=== PATIENT | male | born 1940 | race Hispanic/Latino ===

== ENCOUNTER 2016-11-15 09:24 | Inpatient (IN) | payer MEDICARE, MEDICAID ==
[2016-11-15] MEDS ORDERED: Morphine 4 mg/ml ISec IVP STA (10:37)
--- NOTE | 2016-11-15 10:52 | ED PDOC ---
Arrival/HPI - General Chief Complaint: Back Pain Time Seen by Provider: 11/15/16 09:37 Historian: Patient - History of Present Illness Narrative History of Present Illness (Text): 11/15/16 10:34 A 76 year old male, whose past medical history includes arthritis, is brought into the emergency department by EMS complaining of lower back pain for 2-3 days. Patient reports the pain is worse with movement and when ambulating. He has not taken any medication for the pain. Patient notes a subjective fever 2 days ago but denies any trauma, injury, lower extremity weakness or numbness, nausea, vomiting, diarrhea, abdominal pain, urinary symptoms, chest pain, shortness of breath or any other complaints. PMD: Dr. Juwan Vaughn Time/Duration: Other (2-3 days) Symptom Course: Worsening Quality: Other Context: Home Past Medical History - Provider Review Nursing Documentation Reviewed: Yes - Infectious Disease Hx of Infectious Diseases: None - Cardiac Hx Hypertension: Yes - Endocrine/Metabolic Hx Diabetes Mellitus Type 2: Yes - Musculoskeletal/Rheumatological Hx Arthritis: Yes Hx Gout: Yes - Psychiatric Hx Substance Use: No - Anesthesia Hx Anesthesia: No Family/Social History - Physician Review Nursing Documentation Reviewed: Yes Family/Social History: No Known Family HX Smoking Status: Unknown If Ever Smoked Hx Alcohol Use: Yes Frequency of alcohol use: Socially Hx Substance Use: No Allergies/Home Meds Allergies/Adverse Reactions: Allergies No Known Allergies Allergy (Verified 11/15/16 09:44) Home Medications: Home Meds Medication Instructions Recorded Confirmed Allopurinol [Zyloprim] 300 mg PO DAILY 11/15/16 11/15/16 Glimepiride [amaRYL] 2 mg PO DAILY 11/15/16 11/15/16 Hctz 25mg 25 mg PO DAILY 11/15/16 11/15/16 Levocetirizine Dihydrochloride 5 mg PO PRN 11/15/16 11/15/16 [Xyzal] Linagliptin [Tradjenta] 5 mg PO DAILY 11/15/16 11/15/16 Metoprolol Tartrate [Lopressor] 100 mg PO DAILY 11/15/16 11/15/16 Naproxen [Naprosyn] 500 mg PO BID 11/15/16 11/15/16 amLODIPine [Norvasc] 5 mg PO DAILY 11/15/16 11/15/16 Review of Systems - Physician Review All systems were reviewed & negative as marked: Yes - Review of Systems Constitutional: Fevers (Subjective fever 2 days ago) Respiratory: absent: SOB Cardiovascular: absent: Chest Pain Gastrointestinal: absent: Abdominal Pain, Diarrhea, Nausea, Vomiting Genitourinary Male: absent: Dysuria, Frequency, Hematuria, Urinary Output Changes Musculoskeletal: Back Pain (Lower back pain) Neurological: absent: Focal Weakness (LE weakness/numbness) Physical Exam Vital Signs Reviewed: Yes Vital Signs Temp Pulse Resp BP Pulse Ox 11/15/16 15:34 108 H 16 114/98 H 94 L 11/15/16 15:22 141 H 117/62 11/15/16 15:21 141 H 117/62 11/15/16 15:20 141 H 17 11762 93 L 11/15/16 13:55 131 H 17 126/58 L 92 L 11/15/16 12:50 121 H 121/52 L 11/15/16 12:40 133 H 112/49 L 11/15/16 12:19 134 H 19 112/49 L 94 L 11/15/16 12:03 137 H 20 107/47 L 95 11/15/16 12:02 137 H 11/15/16 11:00 150 H 11/15/16 10:58 99.8 F H 11/15/16 09:42 97.9 F 70 18 115/62 96 Temperature: Afebrile Blood Pressure: Normal Pulse: Regular Respiratory Rate: Normal Appearance: Positive for: Well-Appearing, Non-Toxic, Uncomfortable Pain Distress: None Mental Status: Positive for: Alert and Oriented X 3 Finger Stick Blood Glucose: 167 - Systems Exam Head: Present: Atraumatic, Normocephalic Pupils: Present: PERRL Extroacular Muscles: Present: EOMI Conjunctiva: Present: Normal Mouth: Present: Moist Mucous Membranes Pharnyx: No: ERYTHEMA, EXUDATE, TONSILS ENLARGED Neck: Present: Normal Range of Motion Respiratory/Chest: Present: Clear to Auscultation, Good Air Exchange. No: Respiratory Distress, Accessory Muscle Use Cardiovascular: Present: Regular Rate and Rhythm, Normal S1, S2. No: Murmurs Abdomen: Present: Normal Bowel Sounds. No: Tenderness, Distention, Peritoneal Signs Back: Present: Normal Inspection (No reproducible tenderness) Upper Extremity: Present: Normal Inspection. No: Cyanosis, Edema Lower Extremity: Present: Normal Inspection. No: Edema Neurological: Present: GCS=15, Speech Normal Skin: Present: Warm, Dry, Normal Color. No: Rashes Psychiatric: Present: Alert, Oriented x 3, Normal Insight, Normal Concentration Medical Decision Making ED Course and Treatment: 11/15/16 11:52 EKG shows atrial fibrillation at 133 BPM with RVR, LBBB. Interpreted by me. Report Date : 11/15/2016 13:17:02 Procedure: Chest xray Dictator : Clif Colunga MD IMPRESSION: Mild cardiomegaly. Moderate vascular and interstitial congestion Report Date : 11/15/2016 14:02:10 PROCEDURE: CT Abdomen and Pelvis with contrast Dictator : Clif Colunga MD IMPRESSION: Bilateral lower lobe infiltrates and peribronchial thickening. No acute intra-abdominal findings. After receiving 2L IVF bolus the pts spo2 dropped to around 90%. cxr showed vascular congestion consistent w fluid overload, however the pt remained free of any respiratory symptoms, appeared comfortable, and on multiple re-evals denied any shortness of breath or difficulty breathing. I disc w Dr Vela who will admit - Lab Interpretations Lab Results: 11/15/16 11:40 11/15/16 11:40 Lab Results 11/15/16 11:40: pO2 32, VBG pH 7.39, VBG pCO2 41.0, VBG HCO3 24.8, VBG Total CO2 26.1, VBG O2 Sat (Calc) 68.1 H, VBG Base Excess -0.2 L, VBG Potassium 4.6, Sodium 133.0, Chloride 97.0 L, Glucose 157 H, Lactate 3.2 H, FiO2 21.0, Venous Blood Potassium 4.6 11/15/16 11:40: Sodium 133, Chloride 97 L, Potassium 4.4, Carbon Dioxide 23, Anion Gap 17, BUN 47 H, Creatinine 1.4, Est GFR ( Amer) 59, Est GFR (Non- Af Amer) 49, Random Glucose 152 H, Calcium 8.4, Total Bilirubin 0.9, AST 35, ALT 31, Alkaline Phosphatase 138 H, Troponin I 0.10, Total Protein 6.9, Albumin 3.4, Globulin 3.5, Albumin/Globulin Ratio 1.0 L 11/15/16 11:40: WBC 27.7 H*, RBC 3.93, Hgb 12.0 L, Hct 35.5 L, MCV 90.3, MCH 30.5, MCHC 33.8, RDW 15.1 H, Plt Count 199, MPV 11.6 H, Neutrophils % (Manual) 91 H, Band Neutrophils % 5 H, Lymphocytes % (Manual) 2 L, Monocytes % (Manual) 2 , Platelet Evaluation Normal 11/15/16 10:57: Urine Color Yellow, Urine Appearance Turbid, Urine pH 6.0, Ur Specific [place] 1.025, Urine Protein 100 H, Urine Glucose (UA) Negative, Urine Ketones Negative, Urine Blood Large H, Urine Nitrate Positive H, Urine Bilirubin Negative, Urine Urobilinogen 0.2, Ur Leukocyte Esterase Moderate H, Urine RBC 2 - 5, Urine WBC Tntc, Urine Bacteria Many I have reviewed the lab results: Yes - RAD Interpretation Radiology Orders: 11/15/16 10:36 ABD & PELVIS IV CONTRAST ONLY [CT] Stat 11/15/16 12:41 CHEST PORTABLE [RAD] Stat - Medication Orders Current Medication Orders: Discontinued Medications Diltiazem HCl (Cardizem) 10 mg IVP STAT STA Stop: 11/15/16 11:43 Last Admin: 11/15/16 12:02 Dose: 10 mg Diltiazem HCl (Cardizem) 15 mg IVP STAT STA Stop: 11/15/16 12:30 Last Admin: 11/15/16 12:40 Dose: 15 mg Diltiazem HCl (Cardizem) 10 mg IVP STAT STA Stop: 11/15/16 15:00 Last Admin: 11/15/16 15:22 Dose: 10 mg Ceftriaxone Sodium (Rocephin 1 Gram Ivpb) 1 gm in 100 mls @ 200 mls/hr IVPB STAT STA PRN Reason: Protocol Stop: 11/15/16 11:44 Last Admin: 11/15/16 11:57 Dose: 200 mls/hr Sodium Chloride (Sodium Chloride 0.9%) 1,000 mls @ 999 mls/hr IV .Q1H1M STA Stop: 11/15/16 12:20 Last Admin: 11/15/16 11:26 Dose: 999 mls/hr Sodium Chloride (Sodium Chloride 0.9%) 1,000 mls @ 999 mls/hr IV .Q1H1M STA Stop: 11/15/16 12:20 Last Admin: 11/15/16 11:27 Dose: 999 mls/hr Sodium Chloride (Sodium Chloride 0.9%) 1,000 mls @ 100 mls/hr IV .Q10H [facility] Last Admin: 11/15/16 13:18 Dose: Iodixanol (Visipaque 320 Mg/Ml 100 Ml) Confirm Administered Dose 100 ml IV .STK- MED ONE Stop: 11/15/16 12:29 Metoprolol Tartrate (Lopressor) 100 mg PO STAT STA Stop: 11/15/16 15:00 Last Admin: 11/15/16 15:21 Dose: 100 mg Morphine Sulfate (Morphine) 2 mg IVP STAT STA Stop: 11/15/16 10:38 Last Admin: 11/15/16 11:26 Dose: 2 mg Morphine Sulfate (Morphine) 2 mg IVP STAT STA Stop: 11/15/16 15:00 Pneumococcal Polyvalent Vaccine (Pneumovax 23 Vaccine) 0.5 ml IM .ONCE ONE Stop: 11/15/16 15:57 - Scribe Statement The provider has reviewed the documentation as recorded by the Scribe Ann Marie Pate Provider Scribe Attestation: All medical record entries made by the Scribe were at my direction and personally dictated by me. I have reviewed the chart and agree that the record accurately reflects my personal performance of the history, physical exam, medical decision making, and the department course for this patient. I have also personally directed, reviewed, and agree with the discharge instructions and disposition. Disposition/Present on Arrival - Present on Arrival Any Indicators Present on Arrival: No History of DVT/PE: No History of Uncontrolled Diabetes: No Urinary Catheter: No History of Decub. Ulcer: No History Surgical Site Infection Following: None - Disposition Have Diagnosis and Disposition been Completed?: Yes Diagnosis: UTI (urinary tract infection), Sepsis Disposition: HOSPITALIZED Disposition Time: 12:56 Condition: STABLE
[2016-11-15 11:01] LABS: URINE BILIRUBIN NEGATIVE (NEGATIVE); URINE BLOOD LARGE (NEGATIVE); URINE GLUCOSE (UA) NEGATIVE (NEGATIVE); URINE LEUKOCYTE ESTERASE MODERATE Leu/uL (NEGATIVE); URINE NITRATE POSITIVE (NEGATIVE); URINE PROTEIN 100 mg/dL (<30 mg/dL); URINE UROBILINOGEN 0.2 E.U./dL (<1 E.U./dL)
[2016-11-15 11:06] LABS: URINE APPEARANCE TURBID (CLEAR); URINE COLOR YELLOW (YELLOW)
[2016-11-15 11:09] LABS: URINE BACTERIA MANY (NEG); URINE WBC TNTC /hpf (0-6)
[2016-11-15] MEDS ORDERED: cefTRIAXone 1 gm 1 GM/100 ML BAG IVPB STA (11:15)
[2016-11-15] MEDS ORDERED: Sodium Chloride 0.9% 1,000 ML IV STA ×2 (11:20)
[2016-11-15 11:46] LABS: VENOUS BLOOD GAS BASE EXCESS -0.2 mmol/L (0.0-2.0); VENOUS BLOOD GAS PO2 32 mm/Hg (30-55); VENOUS BLOOD PH 7.39 (7.32-7.43)
[2016-11-15 11:47] LABS: MEAN CELL VOLUME 90.3 fl (80.0-105.0); MEAN CORPUSCULAR HEMOGLOBIN 30.5 pg (25.0-35.0); MEAN CORPUSCULAR HGB CONC 33.8 g/dl (31.0-37.0); MEAN PLATELET VOLUME 11.6 fl (7.0-11.0); PLATELET COUNT 199 10^3/uL (120.0-450.0); RBC 3.93 10^6/uL (3.5-6.1); RED CELL DISTRIBUTION WIDTH 15.1 % (11.5-14.5)
[2016-11-15 11:48] LABS: WHITE BLOOD COUNT 27.7 10^3/ul (4.5-11.0)
[2016-11-15 11:56] LABS: ALBUMIN 3.4 g/dL (3.0-4.8); CALCIUM 8.4 mg/dL (8.4-10.5)
[2016-11-15 12:04] LABS: BAND 5 % (0-2); LYMPHOCYTE 2 % (22.0-35.0); MONOCYTE 2 % (1.0-6.0); NEUTROPHIL 91 % (50.0-70.0); PLATELET ESTIMATE NORMAL (NORMAL)
[2016-11-15 12:07] LABS: TROPONIN I 0.1 ng/mL
[2016-11-15] MEDS ORDERED: Iodixanol 320 MG/ML 100 ML BOTTLE IV ONE (12:28)
[2016-11-15] MEDS ORDERED: Sodium Chloride 0.9% 1,000 ML IV SCH (13:00)
--- NOTE | 2016-11-15 13:18 | RAD ---
HISTORY: fever COMPARISON: 01/28/2014 FINDINGS: LUNGS: No active pulmonary disease. PLEURA: No significant pleural effusion identified, no pneumothorax apparent. CARDIOVASCULAR: Mild cardiomegaly. Moderate vascular and interstitial congestion OSSEOUS STRUCTURES: No significant abnormalities. VISUALIZED UPPER ABDOMEN: Normal. OTHER FINDINGS: None. IMPRESSION: Mild cardiomegaly. Moderate vascular and interstitial congestion
--- NOTE | 2016-11-15 14:04 | CT ---
PROCEDURE: CT Abdomen and Pelvis with contrast HISTORY: back pain COMPARISON: None. TECHNIQUE: Contrast dose: 100 cc of Omni 350 Radiation dose: Total exam DLP = 549 mGy-cm. This CT exam was performed using one or more of the following dose reduction techniques: Automated exposure control, adjustment of the mA and/or kV according to patient size, and/or use of iterative reconstruction technique. FINDINGS: LOWER THORAX: Bilateral lower lobe infiltrates and peribronchial thickening LIVER: Unremarkable. No gross lesion or ductal dilatation. Fatty infiltration of the liver GALLBLADDER AND BILE DUCTS: Unremarkable. PANCREAS: Unremarkable. No gross lesion or ductal dilatation. SPLEEN: Unremarkable. ADRENALS: Unremarkable. No mass. KIDNEYS AND URETERS: Unremarkable. No hydronephrosis. No solid mass. VASCULATURE: There is calcification and mural thrombus in the aorta. BOWEL: Unremarkable. No obstruction. No gross mural thickening. APPENDIX: Normal appendix. PERITONEUM: Unremarkable. No free fluid. No free air. LYMPH NODES: Unremarkable. No enlarged lymph nodes. BLADDER: Unremarkable. REPRODUCTIVE: Unremarkable. BONES: Multilevel disc degeneration with severe spinal stenosis at L3-4 and L4-5 OTHER FINDINGS: None. IMPRESSION: Bilateral lower lobe infiltrates and peribronchial thickening. No acute intra-abdominal findings.
[2016-11-15] MEDS ORDERED: Morphine 2 mg/ml ISec IVP STA (14:59)
[2016-11-15 15:56] VITALS: BMI 27.4
[2016-11-15] MEDS ORDERED: Pneumococcal 23-Valent Vaccine IM ONE (15:56)
[2016-11-15 18:07] LABS: VENOUS BLOOD GAS BASE EXCESS -1.8 mmol/L (0.0-2.0); VENOUS BLOOD GAS PO2 39 mm/Hg (30-55); VENOUS BLOOD PH 7.43 (7.32-7.43)
[2016-11-15] MEDS: Cefepime 1gm in NS 100ml 1 GM/100 ML BAG IVPB SCH (21:45)
--- NOTE | 2016-11-15 23:31 | CARD ---
APPROVED REPORT EKG Measurement Heart [id number] <Conclusion> Atrial fibrillation with rapid ventricular response Left bundle branch block Abnormal ECG
[2016-11-16] MEDS: Oxycodone/Acetaminophen 5/325 mg Tab PO PRN ×2 (05:39→09:22)
[2016-11-16] MEDS: Cefepime 1gm in NS 100ml 1 GM/100 ML BAG IVPB SCH ×3 (06:21→21:22)
[2016-11-16 07:26] LABS: HEMOGLOBIN 10.5 g/dL (14.0-18.0); MEAN CELL VOLUME 90.1 fl (80.0-105.0); MEAN CORPUSCULAR HEMOGLOBIN 29.7 pg (25.0-35.0); MEAN CORPUSCULAR HGB CONC 32.9 g/dl (31.0-37.0); PLATELET COUNT 190 10^3/uL (120.0-450.0); RBC 3.54 10^6/uL (3.5-6.1); RED CELL DISTRIBUTION WIDTH 15.4 % (11.5-14.5)
[2016-11-16 07:34] LABS: WHITE BLOOD COUNT 26.1 10^3/ul (4.5-11.0)
[2016-11-16 07:53] LABS: ALB/GLOB RATIO 0.8 (1.1-1.8); ALBUMIN 2.8 g/dL (3.0-4.8); CALCIUM 7.7 mg/dL (8.4-10.5)
[2016-11-16 09:29] LABS: LYMPHOCYTE 3 % (22.0-35.0); METAMYELOCYTE 1 %; MONOCYTE 4 % (1.0-6.0); NEUTROPHIL 92 % (50.0-70.0); PLATELET ESTIMATE NORMAL (NORMAL)
[2016-11-16] MEDS ORDERED: Home Med 1 UNIT PO SCH (10:00)
[2016-11-16] MEDS ORDERED: Naproxen 550 mg Tab PO SCH (10:00)
[2016-11-16] MEDS ORDERED: cefTRIAXone 1 gm 1 GM/100 ML BAG IV SCH (10:00)
[2016-11-16] MEDS ORDERED: Digoxin 500 mcg/2ml (0.5 mg/2ml) Inj IVP STA (10:42)
[2016-11-16 11:47] LABS: BASO # 0.02 K/mm3 (0.0-2.0); BASO % 0.1 % (0.0-3.0); EOS # 0.1 (0.0-0.7); EOS % 0.3 % (1.5-5.0); GRAN # 22.68 (1.4-6.5); GRAN % 90.5 % (50.0-68.0); HEMOGLOBIN 11.2 g/dL (14.0-18.0); LYMPH % 3.8 % (22.0-35.0); MEAN CELL VOLUME 89.6 fl (80.0-105.0); MEAN CORPUSCULAR HEMOGLOBIN 29.9 pg (25.0-35.0); MEAN CORPUSCULAR HGB CONC 33.3 g/dl (31.0-37.0); MEAN PLATELET VOLUME 11.9 fl (7.0-11.0); MONO # 1.3 (0.1-0.6); MONO % 5.3 % (1.0-6.0); PLATELET COUNT 180 10^3/uL (120.0-450.0); RBC 3.75 10^6/uL (3.5-6.1); RED CELL DISTRIBUTION WIDTH 15.6 % (11.5-14.5)
[2016-11-16 11:49] LABS: WHITE BLOOD COUNT 25.1 10^3/ul (4.5-11.0)
[2016-11-16] MEDS: TRADJENTA 5MG PO SCH (11:51)
--- NOTE | 2016-11-16 12:14 | CP.PCM.CON ---
History of Present Illness - History of Present Illness History of Present Illness: 76 year old male with PMH of arthritis, gout, DM was having subjective fevers and chills for the past 2 days, associated with some nausea but no vomiting. He also felt weak. He denies headache or dizziness, no chest pain, no SOB, no cough or colds, no abdominal pain, no diarrhea. He is complaining of lower back pain which has been bothering him for the past week. In the ED, urinalysis was done which showed pyuria and he also has leukocytosis. Infectious Diseases consult is requested to further evaluate and manage. Review of Systems - Review of Systems All systems: reviewed and no additional remarkable complaints except (as per HPI ) Past Patient History - Infectious Disease Hx of Infectious Diseases: None - Past Social History Smoking Status: Unknown If Ever Smoked - CARDIAC Hx Hypertension: Yes - ENDOCRINE/METABOLIC Hx Diabetes Mellitus Type 2: Yes - INTEGUMENTARY Other/Comment: brown skin discolorations, dry skin and hard thick toenails to ble - MUSCULOSKELETAL/RHEUMATOLOGICAL Hx Arthritis: Yes Hx Gout: Yes - PSYCHIATRIC Hx Substance Use: No - ANESTHESIA Hx Anesthesia: No Meds Allergies/Adverse Reactions: Allergies Allergy/AdvReac Type Severity Reaction Status Date / Time No Known Allergies Allergy Verified 11/15/16 09:44 - Medications Medications: Current Medications Allopurinol (Zyloprim) 300 mg PO DAILY ELIS Amlodipine Besylate (Norvasc) 5 mg PO DAILY ELIS Glimepiride (Amaryl) 2 mg PO DAILY ELIS Home Med (Home Med) 1 unit PO DAILY ELIS Hydrochlorothiazide (Hydrodiuril) 25 mg PO DAILY ELIS Ceftriaxone Sodium (Rocephin 1 Gram Ivpb) 1 gm in 100 mls @ 100 mls/hr IV DAILY ELIS PRN Reason: Protocol Metoprolol Tartrate (Lopressor) 100 mg PO DAILY ELIS Naproxen (Anaprox Ds) 550 mg PO BID ELIS Oxycodone/Acetaminophen (Percocet 5/325 Mg Tab) 1 tab PO Q4H PRN PRN Reason: Pain, severe (8-10) Stop: 11/18/16 18:19 Physical Exam - Constitutional Appears: Non-toxic, No Acute Distress - Head Exam Head Exam: NORMAL INSPECTION - ENT Exam ENT Exam: Mucous Membranes Moist - Neck Exam Neck exam: Negative for: Lymphadenopathy, Meningismus - Respiratory Exam Respiratory Exam: Decreased Breath Sounds - Cardiovascular Exam Cardiovascular Exam: +S1, +S2 - GI/Abdominal Exam GI & Abdominal Exam: Soft. absent: Tenderness Results - Vital Signs Recent Vital Signs: Last Vital Signs Temp 99.8 F H 11/15/16 15:40 Pulse 94 H 11/15/16 18:00 Resp 17 11/15/16 15:40 BP 126/58 L 11/15/16 15:40 Pulse Ox 94 L 11/15/16 15:34 - Labs Result Diagrams: 11/16/16 11:20 11/16/16 06:00 Labs: Laboratory Results - last 24 hr 11/15/16 11/15/16 13:09 18:02 pO2 39 VBG pH 7.43 VBG pCO2 33.0 L VBG HCO3 21.9 VBG Total CO2 22.9 VBG O2 Sat (Calc) 81.0 H VBG Base Excess -1.8 L VBG Potassium 4.8 Sodium 133.0 Chloride 101.0 Glucose 159 H Lactate 2.2 H FiO2 21.0 NT-Pro-B Natriuret Pep 6210 H Venous Blood Potassium 4.8 Assessment & Plan - Assessment and Plan (Free Text) Plan: Assessment Systemic Inflammatory Response Syndrome, consider sever sepsis with acute on chronic renal failure due to UTI acute decompensated heart failure arthritis gout DM acute on chronic renal failure Plan given a dose of IV Vancomycin and started Cefepime and Doxycycline (has infiltrates in the lower lobes of the lungs, but this could from pulmonary edema ), pending PCT, blood and urine cx discussed with Dr. Vaughn will monitor clinically
[2016-11-16] MEDS: Heparin 25,000units in D5W 25,000 UNITS/250 ML BAG IV SCH (13:03)
[2016-11-16 13:17] LABS: INR 1.24 (0.93-1.08); PARTIAL THROMBOPLASTIN TIME 38.6 Seconds (23.7-30.8); PROTHROMBIN TIME 13.4 Seconds (9.9-11.8)
[2016-11-16] MEDS: Vancomycin 1.5 GM in Sodium Chloride 0.9% 500 ML IVPB ONE ×2 (13:30→14:39)
[2016-11-16] MEDS: HYDROmorphone 1 mg/ml ISec IVP PRN ×2 (13:31→21:44)
[2016-11-16 13:44] LABS: ARTERIAL BLOOD GAS HCO3 19.2 mmol/L (21-28); ARTERIAL BLOOD GAS HEMOGLOBIN 11.2 g/dL (11.7-17.4); ARTERIAL BLOOD GAS O2 CAPACITY 15.3 mL/dl (16-24); ARTERIAL BLOOD GAS O2 CONTENT 12.5 ML/dl (15-23); ARTERIAL BLOOD GAS O2 SAT 81.6 % (95-98); ARTERIAL BLOOD GAS PCO2 31 mm/Hg (35-45); ARTERIAL BLOOD GAS TCO2 20.2 mmol.L (22-28)
--- NOTE | 2016-11-16 14:02 | PCM.RRTMUL ---
<PadmaLiss - Last Filed: 11/16/16 14:26> OCCUPATIONAL THERAPY PROGRAM DIRECTOR Nurse Assessment - Situation OCCUPATIONAL THERAPY PROGRAM DIRECTOR Responder Arrival Time:: 13:50 Location:: 271-2 Room Number:: 271-2 OCCUPATIONAL THERAPY PROGRAM DIRECTOR Reason for Call: Tachycardia, Respiratory Distress, O2 Saturation below 90% , Change in Mental Status OCCUPATIONAL THERAPY PROGRAM DIRECTOR Called By: RN - IV IV Inserted during OCCUPATIONAL THERAPY PROGRAM DIRECTOR?: No - Respiratory Oxygen Delivery Method:: Mask ( 15 L O2) Received Nebulizer Treatments:: No Secretions Suctioned?: No Was the Patient Intubated?: No Was the Patient Placed on a Ventilator?: No - Ventilator Settings SAO2 %:: 92 - Diagnostic Test Ordered EKG:: Yes Chest X-Ray:: Yes - Stat Labs Ordered OCCUPATIONAL THERAPY PROGRAM DIRECTOR Stat Labs Ordered:: TROPONIN, LACTIC ACID, ABG - Vital Signs Blood Pressure:: 97/51 Pulse Rate:: 93 Respiratory Rate:: 20 Temperature:: 97.4 F Oxygen Saturation:: 93 - [place] Coma Scale Coma Scale Eye Opening:: Spontaneous Coma Scale Motor:: Obeys Commands Movement Coma Scale Verbal:: Oriented Coma Scale Total:: 15 - Sepsis Screen Part 1 Sepsis Screen Part 1: Hypotensive - Sepsis Screen Part 2 Sepsis Screen Part 2: WBC over 12,000 - Recommendations 5) OCCUPATIONAL THERAPY PROGRAM DIRECTOR Level of Care Recommendations: Transfer to ICU I.Reason for OCCUPATIONAL THERAPY PROGRAM DIRECTOR - A) Acute Change in Patient: (Select all that apply): Acute change in SBP below (80 systolic), Acute change in SpO2 less - A) Initial Vital Signs: Blood Pressure: 97/51 Pulse Rate: 110 Respiratory Rate: 20 O2 Sat by Pulse Oximetry: 93 Finger Stick Blood Glucose: 118 - B) Neurological Status (Select all that apply): Responsive, Verbal, Follows Commands, Confused - C) Respiratory Oxygen Delivery Method: Non Rebreather @% (15L) Oxygen Flow Rate: 15 (15 L ) - Constitutional Appears: In Acute Distress, Confused - Head Head Exam: NORMAL INSPECTION - Eyes Eye Exam: EOMI, Normal appearance - Respiratory Exam Respiratory Exam: Decreased Breath Sounds, Rales, Respiratory Distress. absent : Accessory Muscle Use, Chest Wall Tenderness, Prolonged Expiratory Phase Additional comments: bilateral rales - Cardiovascular Exam Cardiovascular Exam: Tachycardia, JVD Additional comments: atrial fibrillation with RVR - GI/Abdominal Exam GI & Abdominal Exam: Soft. absent: Tenderness, Hypoactive Bowel Sounds, Pulsatile Mass - Neurological Exam Neurological Exam: Awake - Extremities Exam Extremities Exam: Full ROM, Normal Capillary Refill. absent: Pedal Edema Plan - A. End of OCCUPATIONAL THERAPY PROGRAM DIRECTOR Vital Signs: Blood Pressure: 122/47 Pulse Rate: 109 Respiratory Rate: 20 Temperature: 97.4 F O2 Sat by Pulse Oximetry: 99 - B. Assessment of Findings&Treatment Plan Patient has pulmonary edema. ABG 7.36 CO2 35, O2 55, HCO3 lactate 1.4 OCCUPATIONAL THERAPY PROGRAM DIRECTOR was called at 13:48 When patient was noted to be diaphoretic patient and hypotensive. RN described that the patient had difficulty voiding, bladder scan showed about 700cc retained urine, RN inserted the mohan in the patient with Urine output 800cc, cloudy, red-brown in color. Patient answering questions appropriately. Patient denies chest pain. PE: Vital Signs: as above General: oriented to time, place, person. HEENT: EOMI, pupils equal and reactive, JVD noted Heart: tachycardia, irregular rhythm and rate Lung: Rales, decreased breath sounds bilaterally. extremities: no pedal edema skin: clammy, non-cyanosis, pallor Patient is transferred to ICU 128-2 with NRB 15 L Oxygen and manager monitoring in place for further observation by OCCUPATIONAL THERAPY PROGRAM DIRECTOR Currently Blood pressure has stabilized to 122/97, patient is still tachycardic at 109. CXR, EKG, ABG, and troponins were ordered for follow up. Keep patient on Hi-Flow, continue medical care per ICU team. <Lucia Zurita - Last Filed: 11/16/16 15:24> Attending/Attestation - Attestation I have personally seen and examined this patient.: Yes I have fully participated in the care of the patient.: Yes I have reviewed all pertinent clinical information, including history, physical exam and plan: Yes Notes (Text): 11/16/16 15:23 agree with documentation.
[2016-11-16] MEDS ORDERED: Digoxin 500 mcg/2ml (0.5 mg/2ml) Inj IVP ONE (14:21)
[2016-11-16 14:22] LABS: ARTERIAL BLOOD GAS HCO3 19.8 mmol/L (21-28); ARTERIAL BLOOD GAS O2 SAT 93.7 % (95-98); ARTERIAL BLOOD GAS PCO2 35 mm/Hg (35-45); ARTERIAL BLOOD GAS PH 7.36 (7.35-7.45); ARTERIAL BLOOD GAS TCO2 20.9 mmol.L (22-28)
--- NOTE | 2016-11-16 15:17 | RAD ---
HISTORY: Shortness of breath. Portable study 14:15. COMPARISON: No prior. FINDINGS: LUNGS: Worsening pulmonary edema. PLEURA: No significant pleural effusion identified, no pneumothorax apparent. CARDIOVASCULAR: Cardiomegaly/congestive heart failure. OSSEOUS STRUCTURES: No significant abnormalities. VISUALIZED UPPER ABDOMEN: Normal. OTHER FINDINGS: None. IMPRESSION: Cardiomegaly/worsening pulmonary edema.
--- NOTE | 2016-11-16 18:13 | CARD ---
APPROVED REPORT EXAM: Two-dimensional and M-mode echocardiogram with Doppler and color Doppler. INDICATION Congestive Heart Failure 2D DIMENSIONS IVSd0.9 (0.7-1.1cm)LVDd5.0 (3.9-5.9cm) PWd1.1 (0.7-1.1cm)LVDs4.4 (2.5-4.0cm) FS (%) 13.1 %LVEF (%)27.9 (>50%) M-Mode DIMENSIONS Aortic Root3.20 (2.2-3.7cm)Aortic Cusp Exc.1.40 (1.5-2.0cm) Aortic Valve AoV Peak Ddnayjwo232.0cm/Crystal Peak GR.8mmHg Mitral Valve E/A ratio0.0 TDI E/Lateral E'0.0E/Medial E'0.0 Pulmonary Valve PV Peak Hfidfmul41.9cm/sPV Peak Grad.1mmHg Tricuspid Valve TR Peak [id number]/sRAP [id number] Peak Gr.20mmHg [id number] LEFT VENTRICLE The left ventricle is normal size. There is normal left ventricular wall thickness. The systolic function is severely impaired. Sever Septal and Apical hypokinesis Transmitral Doppler flow pattern is Grade I-abnormal relaxation pattern. The left ventricular apex is not well visualized. RIGHT VENTRICLE The right ventricle is normal size. There is normal right ventricular wall thickness. The right ventricular systolic function is normal. ATRIA The left atrium size is normal. The right atrium size is normal. AORTIC VALVE The aortic valve is not well visualized. No aortic regurgitation is present. There is no aortic valvular stenosis. MITRAL VALVE The mitral valve is normal in structure. TRICUSPID VALVE The tricuspid valve is normal in structure. GREAT VESSELS The aortic root is normal in size. The IVC was not visualized. PERICARDIAL EFFUSION There is a trace loculated anterior pericardial effusion. <Conclusion> The left ventricle is normal size. There is normal left ventricular wall thickness. The systolic function is severely impaired. Sever Septal and Apical hypokinesis Transmitral Doppler flow pattern is Grade I-abnormal relaxation pattern.
--- NOTE | 2016-11-16 18:45 | CARD ---
APPROVED REPORT EKG Measurement Heart [id number] <Conclusion> Atrial fibrillation with rapid ventricular response with premature ventricular or aberrantly conducted complexes Nonspecific T wave abnormality, probably digitalis effect Abnormal ECG
--- NOTE | 2016-11-16 20:10 | CON ---
CARDIOLOGY CONSULTATION DATE: 11/16/2016 HISTORY OF PRESENT ILLNESS: The patient is a 76-year-old male who presented with a back pain. He denies shortness of breath. Denies chest pain. The patient's past medical history is notable for hypertension and diabetes mellitus. No previous cardiac history was noted. The patient's past medical history is notable for history of carotid endarterectomy. Recent thyroid functions were unremarkable. In the emergency room, he was found to be in congestive heart failure with urinary retention with an elevated white count as well as in atrial fibrillation. SOCIAL HISTORY: The patient is a former smoker. REVIEW OF SYSTEMS: 14-point review of systems was reviewed in detail. He denies cardiac symptomatology. PHYSICAL EXAMINATION: VITAL SIGNS: The blood pressure is 106 systolic, heart rate is 127, atrial fibrillation. NECK: Negative JVD. LUNGS:. Decreased breath sounds bilaterally. HEART: Reveals S1, S2. EXTREMITIES: Without edema. LABORATORY DATA: EKG shows atrial fibrillation with left bundle branch block. Laboratory includes a white count is 26,000 with a hemoglobin of 10.5. Chemistries: BUN and creatinine is 57 and 1.6. Troponin is 0.10 and a pro-BNP of greater than 11,000. IMPRESSION: 1. Urinary retention. 2. Sepsis. 3. Atrial fibrillation, which is new. 4. Acute systolic congestive heart failure. 5. Renal insufficiency. 6. Non ST-elevation myocardial infarction. 7. Borderline anemia. 8. High probability for coronary artery disease. PLAN: Given these findings, we will treat his atrial fibrillation with beta block as well as IV digoxin. Lasix has been ordered for CHF. An echocardiogram has been ordered. In addition, we will start the patient on IV heparin given his non-STEMI and his atrial fibrillation. Antonio Stewart MD
--- NOTE | 2016-11-17 00:14 | CON ---
DATE: 11/16/2016 REQUESTING PHYSICIAN: Juwan Vaughn MD The patient had episodes of hypoxemia, felt to be in urosepsis on the floor and transferred to the intensive care unit. HISTORY OF PRESENT ILLNESS: The patient is a 76-year-old male with a history of arthritis and complaints of back pain and eventually the pain increased and was brought to the emergency room. The patient was admitted to the telemetry and today developed increasing shortness of breath with hypoxia, rule out sepsis, and had an episode of rapid atrial fibrillation. The patient was transferred to the intensive care unit. Also to note that the patient's troponins elevated and cardiology has seen the patient to rule out myocardial infarction. PAST MEDICAL HISTORY: He has arthritis, chronic back pain, gout, hypertension as well as diabetes. ALLERGIES: THE PATIENT HS NO KNOWN ALLERGIES. MEDICATIONS: His current medications can be evaluated as per the nurse's intake form. SOCIAL HISTORY: The patient has a history of smoking. No ETOH abuse. No drug abuse. FAMILY HISTORY: Noncontributory. REVIEW OF SYSTEMS: CONSTITUTIONAL: The patient had no fever. No nausea or vomiting. HEENT: Within normal limits. RESPIRATORY: The patient developed hypoxia with respiratory insufficiency. CARDIOVASCULAR: The patient had tachycardia, atrial fibrillation with rapid ventricular response. GASTROINTESTINAL: All negative. GENITOURINARY: The patient may have had urinary retention. MUSCULOSKELETAL: All negative. NEUROPSYCHIATRIC: All negative. ENDOCRINE: All negative. HEMATOLOGIC: All negative. IMMUNOLOGIC: All negative. INTEGUMENT: All negative. PHYSICAL EXAMINATION VITAL SIGNS: Note that his temperature is 97.4, his pulse is 109, respirations are 20 and BP is 122/47. SKIN: Warm and dry. HEENT: Head is atraumatic and normocephalic. Eyes are reactive to light. Ears, nose and throat seemed to be within normal limits. NECK: Supple. No JVD, no thyroid enlargement, no lymph nodes. HEART: Regular rate and rhythm. Normal S1 and S2, but mildly tachycardia. LUNGS: Reveal bilateral expiratory wheeze with bilateral rhonchi. ABDOMEN: Soft. Decreased bowel sounds. No organomegaly noted. GENITALIA: Deferred. RECTAL: Deferred. MUSCULOSKELETAL: No joint deformities. EXTREMITIES: Reveal trace lower extremity edema. NEUROLOGIC: He seems to be grossly intact. LABORATORY DATA: As far as his laboratories are concerned, his white count is 25.1, hemoglobin is 11.2, hematocrit 33.6 with platelets of 180,000. PT is 13.4, INR is 1.24 and PTT is 38.6. The patient's arterial blood gas revealed pH of 7.36, PCO2 of 35, PO2 of 55. Sodium is 131, potassium 4.2, chloride 101, CO2 of 20, BUN of 57, creatinine of 1.6 and glucose of 124. The patient's BNP is 11,100. Troponins are negative at this time. Chest x-ray on admission reveals mild cardiomegaly with moderate vascular and interstitial congestion. Chest x-ray since being transferred to the intensive care unit is pending. IMPRESSION: As far as my impression, the patient has respiratory failure with hypoxia secondary to congestive heart failure/pulmonary edema. The patient has sepsis, possible urosepsis. He has increased BNP noted, congestive heart failure with hypoxia. The patient has history of arthritis, diabetes, hypertension, back pain and gout. PLAN: As far as plan, we will continue with doxycycline as antibiotic and the patient at this time is on heparin drip. We will continue with the digoxin, Lasix, Lopressor and cefepime. We will continue to monitor closely, check urine output, and the patient will be started on high-flow and O2 saturation will be monitored as well. We will continue aggressive pulmonary toilet as well. Alex Morales MD
--- NOTE | 2016-11-17 03:58 | PN ---
DATE: 11/16/2016 SUBJECTIVE: The patient is seen earlier this Friday morning in room 271, bed 2. He is awake, alert, comfortable, and surprisingly clear given that he recently went into rapid ventricular response with his atrial fibrillation with relatively low pulse ox. Complaining of back pain. PHYSICAL EXAMINATION GENERAL: The patient is awake and alert as noted above. HEENT: Conjunctivae are pink. Mucous membranes are moist. LUNGS: Show crackles posteriorly. HEART: Irregular and tachycardic. ABDOMEN: Slightly tender with a bladder that seems large on percussion. EXTREMITIES: No significant edema. LABORATORY DATA: CT scan was again reviewed essentially unremarkable except for the . IMPRESSION: 1. Sepsis, probably urosepsis. 2. I suspect urinary retention. 3. New-onset atrial fibrillation. 4. New-onset rapid ventricular response to atrial fibrillation as of 9:38 this morning. 5. Positive troponins this morning, although negative yesterday. 6. History of coronary artery disease with stent placed in 2003. 7. 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 8. Hypertension. 9. Diabetes. PLAN: In view of the rapid ventricular response and positive troponins, I will ask Dr. Antonio Stewart to consult for Cardiology. Case was also discussed at the bedside with Dr. Simeon, the infectious disease technical consultant. The patient was given some IV Lasix. Later in the day, his pulse ox remained low. A repeat ABG showed PO2 to be in the 40s. I request that he be transferred to intensive care. While that was in process, the patient became diaphoretic. A Rapid Response was called, and he was transferred to ICU, given an additional dose of Lasix. Morning labs were ordered. We will follow closely along with the hospital mother's helper, Infectious Disease technical consultant, and Cardiology. Juwan Vaughn MD
[2016-11-17] MEDS: Oxycodone/Acetaminophen 5/325 mg Tab PO PRN (05:03)
--- NOTE | 2016-11-17 05:25 | HP ---
CHIEF COMPLAINT: Back pain and generalized weakness. HISTORY OF PRESENT ILLNESS: This is a 73-year-old man I have known for several years, who was brought to the emergency room because of 2 to 3 days of worsening back pain. He was also noted to smell of urine and little bit incontinent. He denied fevers, chills, or altered mental status. He reported some abdominal pain, but mostly low back pain. He denies shortness of breath. There is no history of injury or trauma, numbness in the legs or radicular pain. He was seen in the emergency room, felt to be uroseptic, given fluids, antibiotics, according to the sepsis protocol and admitted to a monitoring bed because of some atrial fibrillation, but had a controlled rate. PAST MEDICAL HISTORY: Significant for hypertension since 10/2004, diabetes since 07/2005, elevated triglycerides with known history of tuberculosis, asthma, seizures. He does have a history of gout with a recent uric acid level of 9. He is status post CVA and has a history of coronary artery disease with a stent placed in 2003. He underwent a left carotid endarterectomy in 09/2004. PAST SURGICAL HISTORY: Also includes eyebrow surgery for ptosis when he was 8 years old and a right inguinal hernia repair at age 11. ALLERGIES: HE IS ALLERGIC TO SULFA DRUGS, NATALIYA INHIBITORS GIVE HIM DIARRHEA, AND LOVASTATIN CAUSED FATGIUE AT SOMETIME IN THE PAST. FAMILY HISTORY: His mother at age 88 in 2005, his father at age 56 of atherosclerotic cerebrovascular disease. He is the oldest of three siblings. He has a half brother who , as well as half sister who at age 34 of diabetes. SOCIAL HISTORY: He quit smoking 21 years ago in 1995. He drinks a few beers per week, one to two cups of coffee per day. He is single with no children, retired television cable installer, on social security disability since age 61. He never had a colonoscopy in a number of years. He will have to get one. The last stress test was in 2004. He is up to date with his flu vaccine and got a pneumonia vaccine in 12/2012, his Pneumovax 23 vaccine in 12/2012. Problem list in the office includes hypertension, diabetes, coronary artery disease, atherosclerotic cerebrovascular disease, and mild COPD. REVIEW OF SYSTEMS: Otherwise is negative. The patient is quite uncomfortable, unable to give a good reliable history because he having back pain. PHYSICAL EXAMINATION GENERAL: The patient has been seen this Friday late evening, approximately 08:30 in room 271, bed 2. He is surprisingly awake, alert, oriented, appropriate and in good spirits. He is coughing clearly. HEENT: Head and neck is unremarkable. Mucous membranes are moist. HEART: Irregular, not tachycardic, about 90 beats per minute. LUNGS: Show some basilar crackles on deep inspiration. ABDOMEN: Soft, nontender. EXTREMITIES: Show no edema. BACK: Shows no CVA tenderness. No point tenderness to pain or manipulation. IMPRESSION: 1. Urosepsis. 2. Slight volume overload because of the fluid given in the ER as part of the sepsis protocol with chest x-ray and CT scan showing some pulmonary congestion. 3. Possible pulmonary infiltrate. 4. New-onset atrial fibrillation with a controlled rate, probably because of the metoprolol on board. 5. Marked leukocytosis. 6. Negative troponin on admission with an elevated BNP of 6210. 7. History of hypertension. 8. History of diabetes. 9. History of cerebrovascular accident. 10. Coronary artery disease with stent placed in 2003. 11. History of gout. 12. Hypertriglyceridemia. 13. Status post endarterectomy. 14. SULFA, NATALIYA, AND LOVASTATIN DRUG SENSITIVITIES. PLAN: The patient was admitted to telemetry monitored bed because of my concern about volume overload and the fluid he got in the ER with the chest x-ray, CAT scan, and BMP lab findings. I will give him a small dose of Lasix tonight, making it a small dose because of his age, blood pressure and relatively comfortable state. We will ask infectious disease to consult. He received a dose of Rocephin in the ER. We will order morning labs as well as his prior medications and followup them. Juwan Vaughn MD
[2016-11-17 06:00] LABS: HEMOGLOBIN 10.5 g/dL (14.0-18.0); MEAN CORPUSCULAR HEMOGLOBIN 29.6 pg (25.0-35.0); MEAN CORPUSCULAR HGB CONC 33.2 g/dl (31.0-37.0); MEAN PLATELET VOLUME 12.1 fl (7.0-11.0); PLATELET COUNT 169 10^3/uL (120.0-450.0); RBC 3.55 10^6/uL (3.5-6.1); RED CELL DISTRIBUTION WIDTH 15.6 % (11.5-14.5)
[2016-11-17 06:08] LABS: WHITE BLOOD COUNT 27.2 10^3/ul (4.5-11.0)
[2016-11-17 06:09] LABS: CALCIUM 7.9 mg/dL (8.4-10.5)
[2016-11-17 06:10] LABS: ARTERIAL BLOOD GAS HCO3 18.6 mmol/L (21-28); ARTERIAL BLOOD GAS HEMOGLOBIN 10.8 g/dL (11.7-17.4); ARTERIAL BLOOD GAS O2 CAPACITY 14.9 mL/dl (16-24); ARTERIAL BLOOD GAS O2 CONTENT 14.8 ML/dl (15-23); ARTERIAL BLOOD GAS O2 SAT 99.4 % (95-98); ARTERIAL BLOOD GAS PCO2 30 mm/Hg (35-45); ARTERIAL BLOOD GAS TCO2 19.5 mmol.L (22-28)
[2016-11-17] MEDS: Cefepime 1gm in NS 100ml 1 GM/100 ML BAG IVPB SCH (06:13)
[2016-11-17] MEDS ORDERED: DAPTOmycin 500 mg Inj (Cubicin) IV SCH (07:15)
[2016-11-17 08:57] LABS: BAND 0 % (0-2); HYPOCHROMIA 1+; LYMPHOCYTE 5 % (22.0-35.0); MONOCYTE 3 % (1.0-6.0); NEUTROPHIL 92 % (50.0-70.0); PLATELET ESTIMATE NORMAL (NORMAL); ROULEAU 1+; TOXIC GRANULATION 2+
[2016-11-17] MEDS: diltiaZEM IVPB 100mg in NS 100 ML IV PRN ×2 (10:07→20:23)
--- NOTE | 2016-11-17 10:35 | PN ---
CALCULATOR OPERATOR NOTE DATE: 11/17/2016 SUBJECTIVE: The patient is resting in bed with BiPAP, very comfortable with his respiratory status. He is awake and alert. No complaints of chest pain. No significant cough or congestion. No fever chills, nausea or vomiting. PHYSICAL EXAMINATION: VITAL SIGNS: Note that his temperature is 97.2, pulse is 113, respirations are 16, and BP is 115/58. SKIN: Warm and dry. HEENT: Head atraumatic and normocephalic. Eyes reactive to light. Ears, nose, and throat seem to be within normal limits. NECK: Supple, no JVD, no thyroid enlargement, no lymph nodes. HEART: Has regular rate and rhythm. Normal S1 and S2. LUNGS: Reveal mild rhonchi bilaterally. ABDOMEN: Soft and nontender. Decreased bowel sounds. GENITALIA AND RECTAL: Deferred. MUSCULOSKELETAL: No joint deformities. EXTREMITIES: Reveal lower extremity edema. NEUROLOGICALLY: He seemed to be grossly intact. LABORATORY DATA: As far as his laboratories are concerned; his white count is 27.2, his hemoglobin is 10.5, hematocrit 31.6 with platelets of 169,000. Arterial blood gas reveals a pH of 7.40, pCO2 of 30, pO2 of 99. Sodium is 134, potassium 4.1, chloride 102, CO2 of 19 with a BUN of 77, creatinine of 2.5. IMPRESSION: The patient has respiratory failure with hypoxia secondary to congestive heart failure/pulmonary edema. The patient has anemia most likely sepsis, possible urosepsis. He has increased BNP and troponins most likely congestive heart failure, and must rule out myocardial infarction. The patient has a history of arthritis, diabetes, hypertension, back pain, and gout. PLAN: As far as our plan, we will continue with doxycycline as an antibiotic and also the heparin drip. The patient is on Lasix, digoxin, Lopressor, and cefepime. We will continue with the BiPAP and follow arterial blood gases and chest x-ray closely. Alex Morales MD
[2016-11-17] MEDS: HYDROmorphone 1 mg/ml ISec IVP PRN ×2 (11:24→15:35)
--- NOTE | 2016-11-17 13:42 | PN ---
DATE: 11/17/2016 CARDIOLOGY FOLLOWUP SUBJECTIVE: The patient was transferred to the ICU with respiratory distress with a low pO2. The patient could not tolerate respiratory ryan without BiPAP. PHYSICAL EXAMINATION: VITAL SIGNS: Blood pressure 109/48, heart rate is atrial fibrillation at 123. NECK: Negative JVD. LUNGS: No rales noted. HEART: Reveal S1 and S2. EXTREMITIES: Without changes. LABORATORY DATA: White count is up to 27,000, hemoglobin is 10.5. Chemistries: BUN and creatinine is 77 and 2.5. The troponin is 0.36. IMPRESSION: 1. Respiratory distress. 2. Atrial fibrillation. 3. Urinary retention treated with Wolfe catheter with good urine output. 4. Non-ST segment elevation myocardial infarction. 5. High probability for coronary artery disease. PLAN: Given these findings, we will start IV Cardizem today. The patient will need an echocardiogram to evaluate his LV function. Heparin has been ordered. Antonio Stewart MD
--- NOTE | 2016-11-17 13:57 | CP.PCM.PN ---
Subjective - Date & Time of Evaluation Date of Evaluation: 11/17/16 Time of Evaluation: 10:10 - Subjective Subjective: Still with back pain. Noted to have become diaphoretic last night with some distress and was transferred to the ICU. No fevers overnight. Denies dysuria, no abdominal pain. Objective - Vital Signs/Intake and Output Vital Signs (last 24 hours): Temp Pulse Resp BP Pulse Ox 98.1 F 133 H 25 H 110/50 L 92 L 11/17/16 06:00 11/17/16 10:07 11/17/16 07:30 11/17/16 10:08 11/17/16 07:30 Intake and Output: 11/17/16 11/17/16 06:59 18:59 Intake Total 0 520 Output Total 800 Balance 0 -280 - Medications Medications: Current Medications Allopurinol (Zyloprim) 300 mg PO DAILY [facility] Last Admin: 11/17/16 10:10 Dose: 300 mg Furosemide (Lasix) 40 mg IVP Q12 [facility] Last Admin: 11/17/16 10:08 Dose: 40 mg Glimepiride (Amaryl) 2 mg PO DAILY [facility] Last Admin: 11/17/16 10:09 Dose: 2 mg Home Med (Home Med) 1 unit PO DAILY [facility] Last Admin: 11/16/16 11:51 Dose: Not Given Hydromorphone HCl (Dilaudid) 1 mg IVP Q4H PRN PRN Reason: Pain, severe (8-10) Last Admin: 11/17/16 11:24 Dose: 1 mg Heparin Sodium/Dextrose (Heparin 25,000 Units/250ml In D5w) 25,000 units in 250 mls @ 8.459 mls/hr IV .Q24H [facility]; 12 UNITS/KG/HR PRN Reason: Protocol Last Titration: 11/17/16 13:13 Dose: 16 units/kg/hr, 11.278 mls/hr Daptomycin 420 mg/ Sodium (Chloride) 100 mls @ 200 mls/hr IV QOTHERDAY [facility] Stop: 11/22/16 10:01 Last Admin: 11/17/16 09:58 Dose: 200 mls/hr diltiaZEM IVPB 100mg in NS (Cardizem 100mg In Ns) 100 mls @ 5 mls/hr IV .Q20H PRN; Protocol; 5 MG/HR PRN Reason: TITRATE PER MD ORDER Last Admin: 11/17/16 10:07 Dose: 5 mg/hr, 5 mls/hr Metoprolol Tartrate (Lopressor) 100 mg PO DAILY [facility] Last Admin: 11/17/16 10:07 Dose: 100 mg Oxycodone/Acetaminophen (Percocet 5/325 Mg Tab) 1 tab PO Q4H PRN PRN Reason: Pain, severe (8-10) Stop: 11/18/16 18:19 Last Admin: 11/17/16 05:03 Dose: 1 tab - Labs Labs: 11/17/16 05:30 11/17/16 05:30 PT 13.4 Seconds (9.9-11.8) H 11/16/16 13:00 INR 1.24 (0.93-1.08) H 11/16/16 13:00 APTT 47.8 Seconds (23.7-30.8) H 11/17/16 05:30 - Constitutional Appears: Other (still feels weak) - Head Exam Head Exam: NORMAL INSPECTION - Neck Exam Neck Exam: absent: Meningismus - Respiratory Exam Respiratory Exam: Decreased Breath Sounds - Cardiovascular Exam Cardiovascular Exam: +S1, +S2 - GI/Abdominal Exam GI & Abdominal Exam: Soft. absent: Tenderness Assessment and Plan - Assessment and Plan (Free Text) Plan: Assessment severe sepsis with acute on chronic renal failure due to Staph aureus bacteremia , source to be determined, R/O discitis R/O endocarditis; Gram positive cocci in the urine is probably spillage from the blood acute decompensated heart failure arthritis gout DM acute on chronic renal failure Plan has been given a dose of IV Vancomycin and Cefepime and Doxycycline - will change to IV Daptomycin (checked CPK levels and it is normal) pending sensitivities of the Staph aureus in the blood - will repeat blood cx today; will order MRI of the thoracic and lumbar spines, and would recommend JOSEPH when feasible discussed with the ICU team will continue to monitor clinically and trend WBC count; will get baseline ESR and CRP
[2016-11-17] MEDS: TRADJENTA 5MG PO SCH (17:19)
[2016-11-17 20:55] LABS: ARTERIAL BLOOD GAS HCO3 19.7 mmol/L (21-28); ARTERIAL BLOOD GAS O2 CAPACITY 14.9 mL/dl (16-24); ARTERIAL BLOOD GAS O2 CONTENT 12.9 ML/dl (15-23); ARTERIAL BLOOD GAS O2 SAT 86.8 % (95-98); ARTERIAL BLOOD GAS PCO2 40 mm/Hg (35-45); ARTERIAL BLOOD GAS TCO2 20.9 mmol.L (22-28)
[2016-11-17] MEDS ORDERED: Etomidate 20 mg/10ml Inj IV ONE (21:06)
[2016-11-17] MEDS ORDERED: Succinylcholine 200 mg/10 ml Inj IV ONE (21:07)
--- NOTE | 2016-11-17 21:58 | PCM.PROC ---
Procedures Attestation:: I certify that I have explained the specified Operation(s) or Procedure(s), risks, benefits and reasonable alternatives to the Patient and/or other person responsible. The opportunity was given to ask questions and all questions answered - Intubation Time Out Performed: Yes Sedative: Etomidate Paralytic: Succinylholine Laryngoscope: Vanessa ET Tube Size: 7.5 ET Tube Secured Locarion: Lips ET Tube Placement Confirmation: Visualized Passing Through Cords, Breath Sounds Equal Bilaterally, No Breath Sounds Over Epigastrum, Confirmation w/Capnometry Patient Tolerated Procedure: Well Procedure Immediate Complications: Difficult Intubation, Hypotension Additional comments: Patient was desaturating to the mid 80's while on 100% fi02 on Bipap therapy. STAT ABG revealed severe hypoxia; decision made to intubate the patient. Initially attempted with glideoscope without good visualization due to excessive secretions. After first attempt glideoscope aborted and mac 3 blade used for direct laryngoscopy. Vocal cords visualized and 7.5 ETT passed through the cords without difficulty; +B/L breath sounds; +end tidal C02 color change; no breath sounds in the abdomen. CXR performed showing adequate placement of the ETT; worsening of his lung ramírez bilaterally. Likely due to ARDS; will need echo to rule out other causes. Will treat with ARDS protocol for ventilation; PBW of 57 translates to a Vt of roughly 450 at this time. Patient requires elevated PEEP; will obtain stat labs and adjust accordingly.
[2016-11-17 22:12] LABS: MEAN CELL VOLUME 90.6 fl (80.0-105.0); MEAN CORPUSCULAR HEMOGLOBIN 29.6 pg (25.0-35.0); MEAN CORPUSCULAR HGB CONC 32.7 g/dl (31.0-37.0); MEAN PLATELET VOLUME 12.6 fl (7.0-11.0); PLATELET COUNT 160 10^3/uL (120.0-450.0); RBC 3.71 10^6/uL (3.5-6.1)
[2016-11-17 22:16] LABS: ALB/GLOB RATIO 0.8 (1.1-1.8); ALBUMIN 2.7 g/dL (3.0-4.8); CALCIUM 7.6 mg/dL (8.4-10.5); MAGNESIUM 2.6 mg/dL (1.7-2.2)
[2016-11-17 22:24] LABS: WHITE BLOOD COUNT 32.3 10^3/ul (4.5-11.0)
[2016-11-17 22:32] LABS: TROPONIN I 0.2 ng/mL
[2016-11-17 22:44] LABS: ARTERIAL BLOOD GAS HCO3 17.9 mmol/L (21-28); ARTERIAL BLOOD GAS O2 SAT 93.4 % (95-98); ARTERIAL BLOOD GAS PCO2 55 mm/Hg (35-45); ARTERIAL BLOOD GAS TCO2 19.6 mmol.L (22-28)
[2016-11-17] MEDS ORDERED: Midazolam 2 MG/2 ML VIAL ONE (22:48)
[2016-11-17 22:57] LABS: ARTERIAL BLOOD GAS PH 7.12 (7.35-7.45)
[2016-11-17] MEDS ORDERED: Albumin Human 25% (12.5 gm/50 ml) IV ONE (23:00)
[2016-11-17 23:10] LABS: NEUTROPHIL 84 % (50.0-70.0)
[2016-11-17 23:11] LABS: BAND 6 % (0-2); LYMPHOCYTE 6 % (22.0-35.0)
[2016-11-17 23:12] LABS: ATYPICAL LYMPHOCYTE 1 % (0.0-0.0); MONOCYTE 3 % (1.0-6.0)
[2016-11-17 23:14] LABS: ROULEAU 3+
[2016-11-17] MEDS: Midazolam 2 MG/2 ML VIAL IVP PRN (23:22)
[2016-11-17] MEDS: Fentanyl 1000mcg/100ml NS 1,000 MCG/100 ML BAG IV PRN (23:35)
[2016-11-18 01:19] LABS: ARTERIAL BLOOD GAS HCO3 20.7 mmol/L (21-28); ARTERIAL BLOOD GAS HEMOGLOBIN 10.8 g/dL (11.7-17.4); ARTERIAL BLOOD GAS O2 CAPACITY 14.8 mL/dl (16-24); ARTERIAL BLOOD GAS O2 CONTENT 14.5 ML/dl (15-23); ARTERIAL BLOOD GAS O2 SAT 97.7 % (95-98); ARTERIAL BLOOD GAS PCO2 84 mm/Hg (35-45); ARTERIAL BLOOD GAS TCO2 23.3 mmol.L (22-28)
[2016-11-18] MEDS ORDERED: Sodium Bicarbonate (8.4%) 50 Meq Syringe ONE (01:58)
[2016-11-18] MEDS ORDERED: Sodium Bicarbonate (8.4%) 50 Meq Syringe IVP ONE (01:58)
--- NOTE | 2016-11-18 02:22 | CP.PCM.PN ---
Subjective - Date & Time of Evaluation Date of Evaluation: 11/18/16 Time of Evaluation: 08:00 - Subjective Subjective: Progress note for Mauricio Moss ([id number]) - Shaun Antonio PGY2 Alerted by nurse Mistry at approximately 8:00pm that patients O2 saturation had been running in the high 70's-low 80's while on BiPaP. Patient was evaluated in conjunction with Dr. Carrlilo and a stat ABG and CXR were obtained. CXR was reviewed and revealed worsening bilateral infiltrates. His ABG was notable for a respiratory acidosis with pO2 of 48 despite FiO2 of 100%. Due to failing BiPAP , decision was made to intubate patient. Patient was successfully intubated and placed on PRVC with initial settings per [facility] Protocol. Due to hypotension, patient was given fluids, dose of albumin and placed on stress dose steroids. His cardizem drip was held due to episodes of bradycardia. A repeat ABG was drawn which demonstrated worsening acidosis. He was subsequently started on a bicarb drip and vent settings were adjusted accordingly. PMD was called and notified of his deteriorating clinical status and guarded prognosis. Objective - Vital Signs/Intake and Output Vital Signs (last 24 hours): Temp Pulse Resp BP Pulse Ox 98.1 F 90 21 116/49 L 92 L 11/17/16 06:00 11/17/16 17:10 11/17/16 17:10 11/17/16 20:40 11/17/16 17:10 Intake and Output: 11/17/16 11/18/16 18:59 06:59 Intake Total 1180 110 Output Total 1450 Balance -270 110 - Medications Medications: Current Medications Allopurinol (Zyloprim) 300 mg PO DAILY [facility] Last Admin: 11/17/16 10:10 Dose: 300 mg Furosemide (Lasix) 40 mg IVP Q12 [facility] Last Admin: 11/17/16 22:13 Dose: Not Given Home Med (Home Med) 1 unit PO DAILY [facility] Last Admin: 11/17/16 17:19 Dose: Not Given Hydromorphone HCl (Dilaudid) 1 mg IVP Q4H PRN PRN Reason: Pain, severe (8-10) Last Admin: 11/17/16 15:35 Dose: 1 mg Heparin Sodium/Dextrose (Heparin 25,000 Units/250ml In D5w) 25,000 units in 250 mls @ 8.459 mls/hr IV .Q24H [facility]; 12 UNITS/KG/HR PRN Reason: Protocol Last Titration: 11/17/16 13:13 Dose: 16 units/kg/hr, 11.278 mls/hr Daptomycin 420 mg/ Sodium (Chloride) 100 mls @ 200 mls/hr IV QOTHERDAY [facility] Stop: 11/22/16 10:01 Last Admin: 11/17/16 09:58 Dose: 200 mls/hr diltiaZEM IVPB 100mg in NS (Cardizem 100mg In Ns) 100 mls @ 5 mls/hr IV .Q20H PRN; Protocol; 5 MG/HR PRN Reason: TITRATE PER MD ORDER Last Titration: 11/17/16 21:25 Dose: 0 mg/hr, 0 mls/hr Fentanyl Citrate (Fentanyl Citrate/Sodium Chloride 1 Mg/100 Ml) 1,000 mcg in 100 mls @ 2 mls/hr IV .Q24H PRN; Protocol; 20 MCG/HR PRN Reason: TITRATE PER MD ORDER Last Admin: 11/17/16 23:35 Dose: 20 mcg/hr, 2 mls/hr Sodium Bicarbonate 75 meq/ (Sodium Chloride) 1,075 mls @ 75 mls/hr IV .[id number] [facility] Last Admin: 11/17/16 23:52 Dose: 75 mls/hr Levalbuterol HCl (Xopenex) 1.25 mg IH TIDRESP [facility] Methylprednisolone (Solu-Medrol) 60 mg IVP Q12 [facility] Metoprolol Tartrate (Lopressor) 100 mg PO DAILY [facility] Last Admin: 11/17/16 10:07 Dose: 100 mg Midazolam HCl (Versed Inj) 2 mg IVP Q3 PRN PRN Reason: Agitation Last Admin: 11/17/16 23:22 Dose: 2 mg Oxycodone/Acetaminophen (Percocet 5/325 Mg Tab) 1 tab PO Q4H PRN PRN Reason: Pain, severe (8-10) Stop: 11/18/16 18:19 Last Admin: 11/17/16 05:03 Dose: 1 tab - Labs Labs: 11/17/16 22:02 11/17/16 22:02 PT 13.4 Seconds (9.9-11.8) H 11/16/16 13:00 INR 1.24 (0.93-1.08) H 11/16/16 13:00 APTT 49.9 Seconds (23.7-30.8) H 11/17/16 19:54 - Constitutional Appears: In Acute Distress, Chronically Ill - Head Exam Head Exam: ATRAUMATIC, NORMOCEPHALIC - Eye Exam Eye Exam: absent: Conjunctival injection, EOMI, Scleral icterus - ENT Exam ENT Exam: Mucous Membranes Dry - Respiratory Exam Respiratory Exam: Decreased Breath Sounds, Rhonchi, Respiratory Distress - Cardiovascular Exam Cardiovascular Exam: +S1, +S2. absent: Gallop, Rubs, Murmur - GI/Abdominal Exam GI & Abdominal Exam: Soft. absent: Distended, Firm, Tenderness, Rebound - Neurological Exam Neurological Exam: absent: Alert, Awake, Oriented x3 - Skin Skin Exam: Dry, Intact, Normal Color, Warm Assessment and Plan - Assessment and Plan (Free Text) Plan: 76yo male with history of hypertension, DM2, hyperlipidemia, asthma admitted to the ICU with acute hypoxemic respiratory distress, bilateral pulmonary infiltrates, NSTEMI. Neuro: -Patient intubated and sedated (fentanyl/versed PRN) on PRVC per [facility] Protocol -Maintain normothermia Cardio: -EKG's reviewed; Consistent with atrial fibrillation with left bundle branch block -Troponin elevated likely secondary to NSTEMI; Patient was started on heparin drip per cardiology recommendations -Cardizem drip was ordered by cardiology, however held due to bradycardia during respiratory failure -Patient was additionally given a dose of albumin and stress dose steroids due to worsening hypotension -Will continue to monitor hemodynamic stability with goal MAP > 65; should pressure continue to deteriorate will place central line and start vasopressor support -Echocardiogram pending Pulm: -Patient with acute hypoxemic respiratory failure having failed BiPAP and subsequently requiring intubation -Will continue with PRVC settings per [facility] Protocol and adjust accordingly as needed -ABG's reviewed; significant for worsening respiratory acidosis -Patient was placed on bicarb drip as well as given an amp of bicarb -Repeat ABG ordered for 4am -CXR reviewed and revealed worsening bilateral pulmonary infiltrates possibly secondary to ARDS vs pulmonary edema GI: -Protonix for GI prophylaxis -NPO Endo: -Patient started on stress dose steroids; Solumedrol 60mg IVP q12h Heme: -No overt signs of bleeding -Will continue to monitor H/H -DVT prophylaxis with heparin ID: -Patient with worsening leukocytosis of 32.3 from 27.7 on admission -Presently afebrile -Patient had previously been given a dose of vancomycin, cefepime and doxycyline -Will continue with daptomycin per ID recommendations -Blood and urine cultures notable for staph aureus Disposition: Progonosis is guarded for this critically ill patient. PMD has been notified of his deteriorating clinical status. Will continue with optimal medical therapy as indicated. Patient seen, reviewed, examined and discussed with attending physician, Dr. Carrillo
[2016-11-18 02:30] LABS: VENOUS BLOOD GAS BASE EXCESS -7.6 mmol/L (0.0-2.0); VENOUS BLOOD GAS PO2 82 mm/Hg (30-55)
--- NOTE | 2016-11-18 02:34 | PN ---
DATE: 11/17/2016 SUBJECTIVE: The patient was seen this Friday morning in critical care in [facility] CCU, bed 1. He was awake and alert. His mental status was at baseline. He was resting comfortably in bed, but with a BIPAP mask in place. Since he was seen yesterday, he moved to ICU after a rapid response was called having already met internally with the hospital first beater regarding his worsening failure, sepsis, positive blood cultures, new A-fib, new rapid ventricular response and positive troponins. He was seen by cardiology and infectious disease. A Wolfe catheter was in place because of 700 mL residual volume; however, today he underwent a wonderful diuresis. His BUN and creatinine have gone up. Blood pressures have improved. Heart rate was still fast so, the renal immigration consultant was called. PHYSICAL EXAMINATION: HEENT: Head and neck are unremarkable. There is no carotid bruits. Scar is present in the neck from his endarterectomy. HEART: Irregular and tachycardic. LUNGS: Have good airways in the right and left with much less rales than yesterday. EXTREMITIES: Showed minimal to trace edema. IMPRESSION: 1. Sepsis. 2. Atrial fibrillation with rapid ventricular response, new. 3. Positive troponins. 4. Hypertension. 5. Diabetes. 6. Atherosclerotic cerebrovascular disease. 7. Coronary artery disease with stents placed in the past. 8. Low ejection fraction on echo estimating a 29% while lying and overloaded and in failure with atrial fibrillation (this would probably improve with diuresis and treatment and rate control). PLAN: Continuing antibiotics, diuresis, cardiology, infectious disease, pulmonary first beater followup, IV diltiazem drip is in place for rate control. He received his dose of metoprolol earlier this morning. We will follow up closely. Juwan Vaughn MD
[2016-11-18 02:37] LABS: VENOUS BLOOD PH 7.01 (7.32-7.43)
[2016-11-18] MEDS ORDERED: Amiodarone 150 mg/D5W 100 ml 150 MG/100 ML BAG IVPB ONE (03:12)
[2016-11-18 04:18] LABS: ARTERIAL BLOOD GAS HCO3 22.1 mmol/L (21-28); ARTERIAL BLOOD GAS HEMOGLOBIN 10.5 g/dL (11.7-17.4); ARTERIAL BLOOD GAS O2 CAPACITY 14.4 mL/dl (16-24); ARTERIAL BLOOD GAS O2 CONTENT 13.8 ML/dl (15-23); ARTERIAL BLOOD GAS O2 SAT 95.7 % (95-98); ARTERIAL BLOOD GAS PCO2 68 mm/Hg (35-45); ARTERIAL BLOOD GAS TCO2 24.2 mmol.L (22-28)
[2016-11-18 04:18] LABS: BASO # 0.01 K/mm3 (0.0-2.0); GRAN # 25.77 (1.4-6.5); GRAN % 96.6 % (50.0-68.0); HEMOGLOBIN 9.8 g/dL (14.0-18.0); LYMPH # 0.5 (1.2-3.4); LYMPH % 1.8 % (22.0-35.0); MEAN CELL VOLUME 93.4 fl (80.0-105.0); MEAN CORPUSCULAR HEMOGLOBIN 29.6 pg (25.0-35.0); MEAN CORPUSCULAR HGB CONC 31.7 g/dl (31.0-37.0); MEAN PLATELET VOLUME 12.4 fl (7.0-11.0); MONO # 0.4 (0.1-0.6); MONO % 1.6 % (1.0-6.0); PLATELET COUNT 146 10^3/uL (120.0-450.0); RBC 3.31 10^6/uL (3.5-6.1); RED CELL DISTRIBUTION WIDTH 16.5 % (11.5-14.5)
[2016-11-18 04:23] LABS: ARTERIAL BLOOD GAS PH 7.12 (7.35-7.45)
[2016-11-18 04:23] LABS: ALB/GLOB RATIO 0.8 (1.1-1.8); ALBUMIN 2.6 g/dL (3.0-4.8)
[2016-11-18] MEDS: Midazolam 2 MG/2 ML VIAL IVP PRN (04:30)
[2016-11-18 04:31] LABS: WHITE BLOOD COUNT 26.7 10^3/ul (4.5-11.0)
[2016-11-18 04:53] LABS: CALCIUM 6.5 mg/dL (8.4-10.5)
[2016-11-18] MEDS ORDERED: Calcium Chloride 1000 mg/10 ml Syringe IV ONE (06:35)
[2016-11-18] MEDS: Levalbuterol 1.25 MG/3 ML Inhal Soln UD IH SCH ×3 (07:30→19:29)
--- NOTE | 2016-11-18 07:49 | RAD ---
HISTORY: evaluate for pleural effusion/edema COMPARISON: 11/16/2016. FINDINGS: LUNGS: Worsening pulmonary edema. PLEURA: No significant pleural effusion identified, no pneumothorax apparent. CARDIOVASCULAR: Cardiomegaly. OSSEOUS STRUCTURES: No significant abnormalities. VISUALIZED UPPER ABDOMEN: Normal. OTHER FINDINGS: None. IMPRESSION: Worsening/ severe pulmonary edema/ ARDS.
--- NOTE | 2016-11-18 07:50 | RAD ---
HISTORY: intubated; evaluate ETT COMPARISON: 11/16/2016. FINDINGS: LUNGS: Progressive pulmonary edema. PLEURA: No significant pleural effusion identified, no pneumothorax apparent. CARDIOVASCULAR: Stable cardiomegaly OSSEOUS STRUCTURES: No significant abnormalities. VISUALIZED UPPER ABDOMEN: Normal. OTHER FINDINGS: Endotracheal tube tip 3 cm above the patricio. IMPRESSION: Worsening pulmonary edema/ ARDS.
[2016-11-18] MEDS: NOREPINEPHRINE BIT/0.9 % NACL 4 MG/250 ML BAG IV PRN ×2 (08:07→19:16)
--- NOTE | 2016-11-18 08:31 | PCM.PROC ---
Procedures Attestation:: I certify that I have explained the specified Operation(s) or Procedure(s), risks, benefits and reasonable alternatives to the Patient and/or other person responsible. The opportunity was given to ask questions and all questions answered - Central Line Placement Left Internal Jugular Triple Lumen Catheter Aseptic technique was employed throughout the procedure: Hand Hygiene done prior to procedure, Full sterile barriers (mask, hair cover, sterile gown, sterile gloves), Full body sterile drape, Chloraprep Antiseptic: 30 second prep for IJ or SC sites CVP Time Out Performed: Yes Pt. Placed on Pulse Ox Monitor: Yes Central Line Prep: Chlorhexidine-Alcohol Combination Local Anesthesia Used: Lidocaine 2% Ultrasound Used for Placement: Yes Central Line Lumen Inserted: triple Post Procedure: Sutured in Place, Good Blood Return, All Ports Aspirated, Flushed, Capped, Sterile Dressing Applied Secured by: Securement device Post procedure dressing: Clear vapor permeable Post Procedure X-Ray: Yes Patient Tolerated Procedure: Well Immediate Complications: None Additional Comments: Initial attempt was made on the right IJ, however guidewire would not advance despite readjustment. Aborted procedure on the right and attempted on the left side without any issues.
--- NOTE | 2016-11-18 08:52 | RAD ---
HISTORY: IJ central line COMPARISON: 11/17/2016 FINDINGS: LUNGS: There is slight improvement in the pattern of pulmonary edema. Endotracheal tube is in satisfactory position. PLEURA: No significant pleural effusion identified, no pneumothorax apparent. CARDIOVASCULAR: Mild cardiomegaly OSSEOUS STRUCTURES: No significant abnormalities. VISUALIZED UPPER ABDOMEN: Normal. OTHER FINDINGS: None. IMPRESSION: Left internal jugular line in the SVC. No pneumothorax
[2016-11-18] MEDS ORDERED: Digoxin 500 mcg/2ml (0.5 mg/2ml) Inj IVP ONE ×4 (08:56→12:26)
[2016-11-18] MEDS: DOBUTamine 500mg/250ml D5W 500 MG/250 ML BAG IV PRN (09:38)
[2016-11-18] MEDS: TRADJENTA 5MG PO SCH (09:51)
--- NOTE | 2016-11-18 09:58 | CP.PCM.PN ---
Subjective - Date & Time of Evaluation Date of Evaluation: 11/18/16 Time of Evaluation: 09:00 - Subjective Subjective: Noted events overnight - patient had deteriorating respiratory function with worsening pulmonary edema going into ARDS. No fevers were noted overnight. He was on BiPAP but was intubated and put on the ventilator overnight. He is also on vasopressors currently. Objective - Vital Signs/Intake and Output Vital Signs (last 24 hours): Temp Pulse Resp BP Pulse Ox 97.8 F 128 H 22 99/41 L 93 L 11/18/16 00:00 11/18/16 03:00 11/18/16 00:00 11/18/16 03:00 11/18/16 03:00 Intake and Output: 11/17/16 11/18/16 18:59 06:59 Intake Total 1180 116 Output Total 1450 Balance -270 116 - Medications Medications: Current Medications Allopurinol (Zyloprim) 300 mg PO DAILY [facility] Last Admin: 11/17/16 10:10 Dose: 300 mg Calcium Chloride (Calcium Chloride) 1,000 mg IV ONCE ONE Stop: 11/18/16 06:36 Furosemide (Lasix) 40 mg IVP Q12 [facility]IS Last Admin: 11/17/16 22:13 Dose: Not Given Home Med (Home Med) 1 unit PO DAILY [facility] Last Admin: 11/17/16 17:19 Dose: Not Given Hydromorphone HCl (Dilaudid) 1 mg IVP Q4H PRN PRN Reason: Pain, severe (8-10) Last Admin: 11/17/16 15:35 Dose: 1 mg Heparin Sodium/Dextrose (Heparin 25,000 Units/250ml In D5w) 25,000 units in 250 mls @ 8.459 mls/hr IV .Q24H ELIS; 12 UNITS/KG/HR PRN Reason: Protocol Last Titration: 11/17/16 13:13 Dose: 16 units/kg/hr, 11.278 mls/hr Daptomycin 420 mg/ Sodium (Chloride) 100 mls @ 200 mls/hr IV QOTHERDAY [facility]IS Stop: 11/22/16 10:01 Last Admin: 11/17/16 09:58 Dose: 200 mls/hr diltiaZEM IVPB 100mg in NS (Cardizem 100mg In Ns) 100 mls @ 5 mls/hr IV .Q20H PRN; Protocol; 5 MG/HR PRN Reason: TITRATE PER MD ORDER Last Titration: 11/17/16 21:25 Dose: 0 mg/hr, 0 mls/hr Fentanyl Citrate (Fentanyl Citrate/Sodium Chloride 1 Mg/100 Ml) 1,000 mcg in 100 mls @ 2 mls/hr IV .Q24H PRN; Protocol; 20 MCG/HR PRN Reason: TITRATE PER MD ORDER Last Titration: 11/18/16 05:07 Dose: 10 mcg/hr, 1 mls/hr Sodium Bicarbonate 75 meq/ (Sodium Chloride) 1,075 mls @ 75 mls/hr IV .[id number] [facility] Last Admin: 11/17/16 23:52 Dose: 75 mls/hr Levalbuterol HCl (Xopenex) 1.25 mg IH TIDRESP [facility] Methylprednisolone (Solu-Medrol) 60 mg IVP Q12 [facility] Metoprolol Tartrate (Lopressor) 100 mg PO DAILY [facility] Last Admin: 11/17/16 10:07 Dose: 100 mg Midazolam HCl (Versed Inj) 2 mg IVP Q3 PRN PRN Reason: Agitation Last Admin: 11/18/16 04:30 Dose: 2 mg Oxycodone/Acetaminophen (Percocet 5/325 Mg Tab) 1 tab PO Q4H PRN PRN Reason: Pain, severe (8-10) Stop: 11/18/16 18:19 Last Admin: 11/17/16 05:03 Dose: 1 tab Pantoprazole Sodium (Protonix Inj) 40 mg IVP DAILY [facility] - Labs Labs: 11/18/16 04:00 11/18/16 04:00 PT 13.4 Seconds (9.9-11.8) H 11/16/16 13:00 INR 1.24 (0.93-1.08) H 11/16/16 13:00 APTT 63.3 Seconds (23.7-30.8) H 11/18/16 04:00 - Constitutional Appears: Other (Intubated and sedated) - Head Exam Head Exam: NORMAL INSPECTION - ENT Exam Additional comments: ET tube in place - Neck Exam Neck Exam: absent: Lymphadenopathy, Meningismus - Respiratory Exam Respiratory Exam: Decreased Breath Sounds, Rales (scattered) - Cardiovascular Exam Cardiovascular Exam: +S1, +S2 - GI/Abdominal Exam GI & Abdominal Exam: Soft. absent: Tenderness Assessment and Plan - Assessment and Plan (Free Text) Plan: Assessment severe sepsis with acute on chronic renal failure now with ventilator-dependent respiratory failure with methicillin-sensitive Staph aureus bacteremia, source to be determined, R/O discitis R/O endocarditis; MSSA in the urine probably spillage from the blood acute decompensated heart failure now with ARDS arthritis gout DM acute on chronic renal failure Plan will change Daptomycin to IV cefazolin since we are hesitant to use Nafcillin in this patient with worsening renal failure has been given a dose of IV Vancomycin and Cefepime and Doxycycline repeat blood cx are negative so far; recommend MRI of the thoracic and lumbar spines, and JOSEPH when feasible will give a dose of IV Vancomycin and give Merrem and will discuss with ICU team - will repeat septic work up as well Patient is in critical condition
[2016-11-18] MEDS ORDERED: MethylPREDNISolone 40 mg Vial IVP SCH (10:00)
[2016-11-18] MEDS: White Petrolatum Ophth Oint (Puralube) OU SCH ×7 (10:17→22:00)
[2016-11-18 10:47] LABS: ARTERIAL BLOOD GAS HCO3 21.7 mmol/L (21-28); ARTERIAL BLOOD GAS O2 SAT 100.2 % (95-98); ARTERIAL BLOOD GAS TCO2 24.2 mmol.L (22-28)
[2016-11-18] MEDS ORDERED: Vancomycin 1gm in NS 250ml 1 GM/250 ML BAG IVPB ONE (11:00)
[2016-11-18 11:03] LABS: ARTERIAL BLOOD GAS PH 7.03 (7.35-7.45)
[2016-11-18 11:04] LABS: ARTERIAL BLOOD GAS PCO2 82 mm/Hg (35-45)
[2016-11-18] MEDS: Meropenem 500 MG in Sodium Chloride 0.9% 100 ML IVPB SCH ×2 (11:11→21:31)
[2016-11-18] MEDS ORDERED: Dexmedetomidine HCl 4mcg/ml 400 MCG/100 ML BOTTLE IV PRN (11:30)
--- NOTE | 2016-11-18 12:01 | CON ---
DATE: 11/17/2016 REASON FOR CONSULTATION: Acute kidney injury, hyponatremia, leukocytosis, and sepsis. HISTORY OF PRESENT ILLNESS: A 76-year-old male, previously unknown to me, who was admitted to the ICU yesterday with complaints of severe low back pain, inability to urinate, and history of fever and chills for 2 days prior to presentation. The patient also gave a history of some nausea. He denied any chest pain, shortness of breath, cough, or cold. He denied any abdominal pain or diarrhea. In the emergency room, urinalysis revealed pyuria, the patient was found to have elevated WBC count, and his creatinine was 1.6 at the time of presentation. Creatinine has risen to 2.5 today and hence consultation is requested. PAST MEDICAL/SURGICAL HISTORY: Hypertension for 10 plus years, NIDDM, hyperlipidemia, asthma, seizures, history of CVA, history of CAD, PTCA and stent in 2003, left carotid endarterectomy, and right inguinal hernia repair. FAMILY HISTORY: CAD and CVA. SOCIAL HISTORY: Ex-smoker, social alcohol intake, no IV drug abuse. ALLERGIES: SULFA, NATALIYA INHIBITORS, AND LOVASTATIN. MEDICATIONS AT HOME: Amlodipine 5 mg daily, Naprosyn 500 b.i.d., Lopressor 100 daily, Tradjenta 5, *------*, hydrochlorothiazide 25 mg, Amaryl 2 mg, and allopurinol 300. REVIEW OF SYSTEMS: Currently the patient is receiving BiPAP in the ICU. Systems review is *------* severe back pain. He denies any abdominal pain. He reports he has not had a BM in 4 days. He denies any chest tightness. He denies any cough. He denies any shortness of breath. PHYSICAL EXAMINATION: GENERAL: Elderly male lying in bed in the ICU, on BiPAP. VITAL SIGNS: Blood pressure 110/50, heart rate 133, respiratory rate 25, temperature 98.1, T-max was 99.8. HEENT: Head atraumatic and normocephalic. Positive pallor. No icterus. NECK: Supple. No JVD. LUNGS: Bilateral equal air entry, bilateral equal expansion. Clear to auscultation at this time anteriorly. CARDIAC: S1 and S2, irregularly irregular, tachycardia, no murmur. ABDOMEN: Distended, soft, nontender, and bowel sounds present. EXTREMITIES: No lower extremity edema. INTAKE AND OUTPUT: 720/1625. LABORATORY DATA: WBC 27, hemoglobin 10.5, hematocrit 31.6, platelets 169, and 92% polys. Sodium 134, potassium 4.1, chloride 102, CO2 of 19, BUN 77, creatinine 2.5, glucose 105, calcium 7.9. Troponin 0.36, went up from 0.10. Albumin 2.8. Urinalysis: Yellow, turbid, pH 6.0, specific gravity 1.025, protein 100, blood large, nitrite positive, leukocyte esterase moderate. Urine Legionella negative. Urine culture, Staph aureus. Blood culture, Staph aureus. CT of the abdomen and pelvis done in the emergency room on 11/15/2016,unremarkable kidneys, no hydronephrosis, multi-level disk degeneration, severe spinal stenosis at L3-L4 and L4-L5. Also, bilateral lower lobe infiltrates with peribronchial thickening. ASSESSMENT AND PLAN: 1. Multiorgan dysfunction syndrome. 2. Leucocytosis/bandemia/low-grade fever/urinary tract infection/possible pneumonia. 3. Acute kidney injury, superimposed *------*, suspect acute kidney injury is acute tubular necrosis in the setting of progressive sepsis. 4. Past urinary tract infection and bacteremia. 5. History of hypertension. 6. Eht-cejxufd-thwshtome diabetes mellitus. 7. Severe spinal stenosis. 8. Acute coronary syndrome/elevated troponins. 9. Mild hyponatremia. 10. Element of prerenal azotemia? PLAN: 1. Check urine sodium and urine creatinine to calculate FENa. 2. Antibiotic as per ID recommendations, dose for creatinine clearance 30 to 50 mL per minute. 3. Agree with IV Cardizem for 2 *------*. 4. Agree with anticoagulation for acute coronary syndrome. 5. Limit the use of Lasix. 6. Agree with beta kulwant. 7. Monitoring urine output closely. 8. Avoid NSAIDs. 9. Check urine eosinophils, although AIN is unlikely. Case discussed with ICU staff at length. Case was discussed with ICU resident. More than 35 minutes was spent in the care of this critically ill patient. Karen Loja MD
[2016-11-18] MEDS: ceFAZolin 2 GM in Sodium Chloride 0.9% 100 ML IVPB SCH ×2 (12:55→21:32)
[2016-11-18] MEDS: Heparin 25,000units in D5W 25,000 UNITS/250 ML BAG IV SCH (13:07)
[2016-11-18 14:12] LABS: ARTERIAL BLOOD GAS HCO3 22.2 mmol/L (21-28); ARTERIAL BLOOD GAS O2 SAT 98.9 % (95-98); ARTERIAL BLOOD GAS TCO2 24.5 mmol.L (22-28)
[2016-11-18 14:14] LABS: ARTERIAL BLOOD GAS PH 7.08 (7.35-7.45)
[2016-11-18 14:15] LABS: ARTERIAL BLOOD GAS PCO2 75 mm/Hg (35-45)
--- NOTE | 2016-11-18 14:19 | CP.PCM.PN ---
<MELYSSA ESTRADACHERRYROSE - Last Filed: 11/18/16 15:30> Subjective - Date & Time of Evaluation Date of Evaluation: 11/18/16 Time of Evaluation: 07:30 - Subjective Subjective: Tenzin Estrada DO PGY1 - ICU Progress Note Patient seen and examined at bedside. Patient was intubated last night for mixed hypoxic and hypercapnic respiratory failure and severe respiratory acidosis. Patient remains intubated, sedated on fentanyl. Repeat ABG today shows improved hypoxia, but persistent hypercarbia and severe respiratory acidosis. Likely undersedated, enabling him to overbreathe the ventilator, and experience breath stacking, despite invasive ventilation. Objective - Vital Signs/Intake and Output Vital Signs (last 24 hours): Temp Pulse Resp BP Pulse Ox 98.7 F 112 H 22 97/44 L 96 11/18/16 06:00 11/18/16 13:30 11/18/16 00:00 11/18/16 13:30 11/18/16 13:30 Intake and Output: 11/18/16 11/18/16 06:59 18:59 Intake Total 1953 314 Output Total 200 Balance 1753 314 - Medications Medications: Current Medications Allopurinol (Zyloprim) 300 mg PO DAILY [facility] Last Admin: 11/18/16 09:51 Dose: Not Given Artificial Tears (Puralube Opht Oint) 1 appl OU Q2 [facility] Last Admin: 11/18/16 12:05 Dose: 1 applic Home Med (Home Med) 1 unit PO DAILY [facility] Last Admin: 11/18/16 09:51 Dose: Not Given Heparin Sodium/Dextrose (Heparin 25,000 Units/250ml In D5w) 25,000 units in 250 mls @ 8.459 mls/hr IV .Q24H [facility]IS; 12 UNITS/KG/HR PRN Reason: Protocol Last Admin: 11/18/16 13:07 Dose: 16 units/kg/hr, 11.278 mls/hr Fentanyl Citrate (Fentanyl Citrate/Sodium Chloride 1 Mg/100 Ml) 1,000 mcg in 100 mls @ 2 mls/hr IV .Q24H PRN; Protocol; 20 MCG/HR PRN Reason: TITRATE PER MD ORDER Last Titration: 11/18/16 12:13 Dose: 80 mcg/hr, 8 mls/hr Sodium Bicarbonate 75 meq/ (Sodium Chloride) 1,075 mls @ 75 mls/hr IV .[id number] [facility] Last Admin: 11/18/16 12:54 Dose: 75 mls/hr NOREPINEPHRINE BIT/0.9 % NACL (Levophed 4 Mg/ 250 Ml Ns Premixed) 4 mg in 250 mls @ 15 mls/hr IV .[id number] PRN; Protocol; 4 MCG/MIN PRN Reason: TITRATE PER MD ORDER Last Admin: 11/18/16 08:07 Dose: 4 mcg/min, 15 mls/hr Dobutamine HCl/Dextrose (Dobutamine/Dextrose 5% 500mg/250ml) 500 mg in 250 mls @ 10.573 mls/hr IV .[id number] PRN; Protocol; 5 MCG/KG/MIN PRN Reason: TITRATE PER PROTOCOL Last Admin: 11/18/16 09:38 Dose: 10.573 mls/hr Cefazolin Sodium 2 gm/ Sodium (Chloride) 100 mls @ 200 mls/hr IVPB Q12 [facility]IS PRN Reason: Protocol Last Admin: 11/18/16 12:55 Dose: 200 mls/hr Meropenem 500 mg/ Sodium (Chloride) 100 mls @ 100 mls/hr IVPB Q12 [facility] PRN Reason: Protocol Stop: 11/25/16 10:01 Last Admin: 11/18/16 11:11 Dose: 100 mls/hr Dexmedetomidine HCl (Precedex 4 Mcg/Ml (100 Ml)) 400 mcg in 100 mls @ 7.276 mls /hr IV .[id number] PRN; Protocol; 0.4 MCG/KG/HR PRN Reason: Sedation Last Titration: 11/18/16 12:44 Dose: 0.6 mcg/kg/hr, 10.913 mls/hr Levalbuterol HCl (Xopenex) 1.25 mg IH TIDRESP [facility] Last Admin: 11/18/16 13:16 Dose: 1.25 mg Pantoprazole Sodium (Protonix Inj) 40 mg IVP DAILY [facility] Last Admin: 11/18/16 09:53 Dose: 40 mg - Labs Labs: 11/18/16 04:00 11/18/16 04:00 PT 13.4 Seconds (9.9-11.8) H 11/16/16 13:00 INR 1.24 (0.93-1.08) H 11/16/16 13:00 APTT 63.3 Seconds (23.7-30.8) H 11/18/16 04:00 - Constitutional Appears: Chronically Ill, Other (Intubated, sedated) - Head Exam Head Exam: ATRAUMATIC, NORMOCEPHALIC - Eye Exam Eye Exam: PERRL - ENT Exam ENT Exam: Mucous Membranes Moist - Neck Exam Neck Exam: absent: Lymphadenopathy, Thyromegaly - Respiratory Exam Respiratory Exam: Accessory Muscle Use, Clear to Ausculation Bilateral - Cardiovascular Exam Cardiovascular Exam: Tachycardia, RRR, +S1, +S2 - GI/Abdominal Exam GI & Abdominal Exam: Soft. absent: Distended, Firm, Guarding, Rigid - Extremities Exam Extremities Exam: Pedal Edema (trace) - Neurological Exam Additional comments: Sedated, on fentanyl - Skin Skin Exam: Dry, Intact Assessment and Plan - Assessment and Plan (Free Text) Assessment: 76yo male with history of HTN, DM2, HLD, COPD, asthma admitted to the ICU with acute mixed hypoxemic hypercapnic respiratory distress, bilateral pulmonary infiltrates, NSTEMI, sepsis with positive BCx likely 2/2 UTI vs diskitis vs PNA. Plan: Neuro: - Patient intubated and sedated on fentanyl on PRVC per [facility] Protocol, will add precedex and increase sedation to improve ventilatory compliance/synchrony - Maintain normothermia Cardio: - EKG's reviewed; Consistent with atrial fibrillation with left bundle branch block - Troponin elevated likely secondary to NSTEMI; Patient on heparin drip per cardio, continue ASA - Patient continues to require vasopressors and inotropic support, on levophed 4 and dobutamine 0.5 - Will continue to monitor hemodynamic stability with goal MAP > 65 - Echocardiogram pending Pulm: - Patient with acute mixed hypoxemic hypercapnic respiratory failure, currently intubated - Hypoxia has improved, but remains persistently hypercapnic and acidotic, despite invasive ventilation, likely because of undersedation and poor ventilator compliance/synchrony in the setting of new acutely decompensated CHF , h/o COPD and asthma, and likely CAP - Will continue with PRVC, and titrate settings to maintain PaO2>60, pH 7.4, and permissive hypercapnea - ABG's reviewed; significant for worsening respiratory acidosis, continue trending ABG - Continue Bicarb drip - CXR reviewed and revealed persistent bilateral pulmonary infiltrates possibly secondary to ARDS vs pulmonary edema GI: - Protonix for GI prophylaxis - NPO Endo: - Maintain euglycemia Heme: - No overt signs of bleeding - Will continue to monitor H/H - DVT prophylaxis covered by heparin ID: - Patient with persistent leukocytosis despite broad spectrum antibiotics - Presently afebrile - Blood and urine cultures notable for staph aureus, repeat BCx positive for gram positive cocci in clusters - Switched to Merrem and Ancef per ID - Patient initially presented to back pain, possible sources for sepsis include urine, diskitis, PNA. Will order CT chest to evaluate CXR findings further. Will order MRI of T-spine and L-spine to evaluate for etiology of back pain, and r/o diskitis. Patient seen, reviewed, examined and discussed with attending physician <Hector MADDOX,Alla H - Last Filed: 11/18/16 18:11> Objective - Vital Signs/Intake and Output Vital Signs (last 24 hours): Temp Pulse Resp BP Pulse Ox 98.7 F 112 H 24 96/45 L 96 11/18/16 06:00 11/18/16 15:13 11/18/16 15:13 11/18/16 15:00 11/18/16 15:00 Intake and Output: 11/18/16 11/18/16 06:59 18:59 Intake Total 1953 358 Output Total 200 Balance 1753 358 - Medications Medications: Current Medications Allopurinol (Zyloprim) 300 mg PO DAILY [facility] Last Admin: 11/18/16 09:51 Dose: Not Given Artificial Tears (Puralube Opht Oint) 1 appl OU Q2 [facility] Last Admin: 11/18/16 17:52 Dose: 1 applic Aspirin (Aspirin Supp) 300 mg RC DAILY [facility] Home Med (Home Med) 1 unit PO DAILY [facility] Last Admin: 11/18/16 09:51 Dose: Not Given Heparin Sodium/Dextrose (Heparin 25,000 Units/250ml In D5w) 25,000 units in 250 mls @ 8.459 mls/hr IV .Q24H [facility]IS; 12 UNITS/KG/HR PRN Reason: Protocol Last Admin: 11/18/16 13:07 Dose: 16 units/kg/hr, 11.278 mls/hr Fentanyl Citrate (Fentanyl Citrate/Sodium Chloride 1 Mg/100 Ml) 1,000 mcg in 100 mls @ 2 mls/hr IV .Q24H PRN; Protocol; 20 MCG/HR PRN Reason: TITRATE PER MD ORDER Last Titration: 11/18/16 12:45 Dose: 50 mcg/hr, 5 mls/hr Sodium Bicarbonate 75 meq/ (Sodium Chloride) 1,075 mls @ 75 mls/hr IV .[id number] [facility] Last Admin: 11/18/16 12:54 Dose: 75 mls/hr NOREPINEPHRINE BIT/0.9 % NACL (Levophed 4 Mg/ 250 Ml Ns Premixed) 4 mg in 250 mls @ 15 mls/hr IV .[id number] PRN; Protocol; 4 MCG/MIN PRN Reason: TITRATE PER MD ORDER Last Admin: 11/18/16 08:07 Dose: 4 mcg/min, 15 mls/hr Dobutamine HCl/Dextrose (Dobutamine/Dextrose 5% 500mg/250ml) 500 mg in 250 mls @ 10.573 mls/hr IV .[id number] PRN; Protocol; 5 MCG/KG/MIN PRN Reason: TITRATE PER PROTOCOL Last Admin: 11/18/16 09:38 Dose: 10.573 mls/hr Cefazolin Sodium 2 gm/ Sodium (Chloride) 100 mls @ 200 mls/hr IVPB Q12 [facility]IS PRN Reason: Protocol Last Admin: 11/18/16 12:55 Dose: 200 mls/hr Meropenem 500 mg/ Sodium (Chloride) 100 mls @ 100 mls/hr IVPB Q12 [facility]IS PRN Reason: Protocol Stop: 11/25/16 10:01 Last Admin: 11/18/16 11:11 Dose: 100 mls/hr Dexmedetomidine HCl (Precedex 4 Mcg/Ml (100 Ml)) 400 mcg in 100 mls @ 7.276 mls /hr IV .[id number] PRN; Protocol; 0.4 MCG/KG/HR PRN Reason: Sedation Last Titration: 11/18/16 16:55 Dose: 0.8 mcg/kg/hr, 14.551 mls/hr Levalbuterol HCl (Xopenex) 1.25 mg IH TIDRESP [facility] Last Admin: 11/18/16 13:16 Dose: 1.25 mg Pantoprazole Sodium (Protonix Inj) 40 mg IVP DAILY [facility] Last Admin: 11/18/16 09:53 Dose: 40 mg - Labs Labs: 11/18/16 04:00 11/18/16 04:00 PT 13.4 Seconds (9.9-11.8) H 11/16/16 13:00 INR 1.24 (0.93-1.08) H 11/16/16 13:00 APTT 63.3 Seconds (23.7-30.8) H 11/18/16 04:00 Attending/Attestation - Attestation I have personally seen and examined this patient.: Yes I have fully participated in the care of the patient.: Yes I have reviewed all pertinent clinical information, including history, physical exam and plan: Yes Notes (Text): 11/18/16 17:58 76 y/o M w/ Hypoxemic Hypercarbic respiratory failure Ac/VC 380-400 cc rr 25-30 fio2 80% Abg needed q 2 hrs . Keep PH> 7.2 pao2> 60 Plat < 30 CT chest done today shows multilobar infiltrates w/ pulmonary vascular congestion. Unclear if the bases shows some signs of early pulmonary fibrosis Shock , likely mixture of septic and cardiogenic . MSSA in the blood cx x 3 and urine. have to r/o Endocarditis vs diskitis . Continue broad spectrum abx. MRI spine needed once stable and may need JOSEPH if Blood cx remain positive Heart failure w/ reduced EF and WMA noted on ECHO. On heparin drip asprin and Dobutamine to help . LEMUEL likely from ATN , urine output reduced . Once BP stable would diurese . Poor prognosis cc time 65 min
[2016-11-18] MEDS ORDERED: Cisatracurium 2 mg/mL Inj 10ml IV STA (14:57)
--- NOTE | 2016-11-18 15:07 | PN ---
DATE: 11/18/2016 SUBJECTIVE: The patient is intubated, with a marked metabolic abnormalities as well respiratory acidosis. PHYSICAL EXAMINATION: VITAL SIGNS: Blood pressure 96 systolic, heart rate is sinus tachycardia in the 130s. NECK: Negative JVD. LUNGS: Decreased breath sound. HEART: Reveal S1 and S2. EXTREMITIES: Without change. LABORATORY DATA: White count is down to 26,000, hemoglobin is 9.8. Chemistries: BUN and creatinine is 88 and 3.1 with an arterial blood gas that reveals a pH of 7.03, O2 is 147 with bicarb of 82. IMPRESSION: 1. Respiratory acidosis. 2. Respiratory failure. 3. Cardiomyopathy with likely ischemic base with segmental wall motion abnormalities. 4. Positive blood cultures. 5. Renal insufficiency. 6. Severe chronic obstructive pulmonary disease. 7. Obstructive uropathy. PLAN: Given these findings, multiple adjustments have been made on his ventilator setting. I have added inotropic medication to help LV function. We will discuss with Dr. Vaughn about considering acute cardiac intervention once the positive blood cultures can be controlled. Antonio Stewart MD
--- NOTE | 2016-11-18 16:01 | CARD ---
APPROVED REPORT EKG Measurement Heart [id number] <Conclusion> Atrial fibrillation with rapid ventricular response with premature ventricular or aberrantly conducted complexes Left bundle branch block Abnormal ECG
--- NOTE | 2016-11-18 16:14 | CT ---
PROCEDURE: CT Chest without contrast HISTORY: acidosis COMPARISON: None. TECHNIQUE: Contiguous axial images were obtained through the chest without intravenous contrast enhancement. Sagittal and coronal reconstructions were performed. Radiation dose (DLP): 810 mGy-cm. This CT exam was performed using one or more of the following dose reduction techniques: Automated exposure control, adjustment of the mA and/or kV according to patient size, and/or use of iterative reconstruction technique. FINDINGS: LUNGS: Diffuse bilateral infiltrates are seen. There is more dense consolidation posteriorly. Air bronchograms are seen bilaterally. The findings could represent pulmonary edema or pneumonia. MEDIASTINUM: Unremarkable thoracic aorta. No aneurysm. Normal sized heart. Main pulmonary artery unremarkable. No vascular congestion. No lymphadenopathy. PLEURA: Small pleural effusions. BONES: No fracture. No destructive lesion. UPPER ABDOMEN: Grossly unremarkable. OTHER FINDINGS: Endotracheal tube in satisfactory position IMPRESSION: Diffuse bilateral infiltrates. Pulmonary edema versus pneumonia
[2016-11-18] MEDS ORDERED: Propofol 10 mg/ml 1,000 MG/100 ML VIAL IV PRN (18:33)
[2016-11-18 18:45] LABS: ARTERIAL BLOOD GAS HCO3 19.8 mmol/L (21-28); ARTERIAL BLOOD GAS PCO2 53 mm/Hg (35-45); ARTERIAL BLOOD GAS TCO2 21.4 mmol.L (22-28)
[2016-11-18] MEDS: Propofol 10 mg/ml 1,000 MG/100 ML VIAL IV PRN (19:12)
[2016-11-18 19:16] LABS: ARTERIAL BLOOD GAS PH 7.18 (7.35-7.45)
[2016-11-18] MEDS: Fentanyl 1000mcg/100ml NS 1,000 MCG/100 ML BAG IV PRN (20:29)
[2016-11-18] MEDS: Cisatracurium Besylate 100 MG in Sodium Chloride 0.9% 250 ML IV PRN (20:31)
[2016-11-18 22:14] LABS: ARTERIAL BLOOD GAS HCO3 20.4 mmol/L (21-28); ARTERIAL BLOOD GAS O2 SAT 99.5 % (95-98); ARTERIAL BLOOD GAS PCO2 56 mm/Hg (35-45); ARTERIAL BLOOD GAS TCO2 22.1 mmol.L (22-28)
[2016-11-18 22:42] LABS: ARTERIAL BLOOD GAS PH 7.17 (7.35-7.45)
--- NOTE | 2016-11-18 23:48 | PN ---
ADDENDUM DATE: 11/18/2016 PHYSICAL EXAMINATION: VITAL SIGNS: Blood pressure 102/46, heart rate 112, respiratory rate 24, and temperature T-max is 100.2. HEENT: Normocephalic atraumatic. Pupils reactive to light. NECK: Supple, no JVD. LUNGS: Bilateral equal air entry, equal expansion, clear anteriorly. CARDIAC: S1 and S2, tachycardia, regular rate and rhythm, no murmur, no rub. ABDOMEN: Distended, soft, nontender, bowel sounds present. EXTREMITIES: 1+ pitting edema of the lower extremities. INTAKE AND OUTPUT: 3133/3015. LABORATORY DATA: WBC 27, hemoglobin 9.8, hematocrit 30.9 and platelets 146. Sodium 137, potassium 4.4, chloride 98, CO2 of 27, BUN 88, creatinine 3.1, glucose 125, calcium 6.5, albumin 2.6, corrected calcium 7.6, total bilirubin 1.9, *------*, troponin 0.20. Urine culture staph aureus. Blood culture staph aureus. Chest x-ray enhanced internal jugular line, no pneumothorax, pulmonary edema. CURRENT MEDICATIONS: Cefazolin 2 g q. 12 hours, dobutamine at 10 mL per hour, fentanyl, heparin at 16 units/kg/hour, Levophed 4 mcg per minute, meropenem 500 mg q. 12 hours, Precedex, Protonix, half normal saline with 75 mEq of bicarbonate at 80 mL per hour, Xopenex, allopurinol, and albumin given earlier. ASSESSMENT: 1. Sepsis/multiorgan dysfunction syndrome. 2. Hypoxic respiratory failure. 3. Possible pneumonia. 4. Acute coronary syndrome. 5. Pulmonary edema. 6. Staphylococcus urinary tract infection and bacteremia. 7. Acute kidney injury. 8. Acute tubular necrosis in the setting of sepsis, hypotension, hypoperfusion. 9. Severe spinal stenosis. PLAN: 1. Continue ventilatory support. 2. Continue pressors, keep recent blood pressure greater than 90. 3. Dose all antibiotics for creatinine clearance about 30 mL/minute. 4. Avoid nephrotoxins. 5. Continue inotropic support. 6. Anticoagulation per acute coronary syndrome. The patient is critically ill. Prognosis is grim. Case is discussed with ICU resident at bedside. Case was discussed with ICU nursing staff. More than 35 minutes was spent in the care of this critically ill patient. Karen Loja MD [facility] # [id number]
[2016-11-19 00:14] LABS: ARTERIAL BLOOD GAS O2 SAT 98.3 % (95-98); ARTERIAL BLOOD GAS PCO2 51 mm/Hg (35-45); ARTERIAL BLOOD GAS TCO2 20.6 mmol.L (22-28)
[2016-11-19 00:16] LABS: ARTERIAL BLOOD GAS PH 7.18 (7.35-7.45)
[2016-11-19] MEDS: White Petrolatum Ophth Oint (Puralube) OU SCH ×11 (02:00→22:17)
[2016-11-19 02:22] LABS: ARTERIAL BLOOD GAS O2 SAT 98.4 % (95-98); ARTERIAL BLOOD GAS PCO2 51 mm/Hg (35-45); ARTERIAL BLOOD GAS TCO2 20.6 mmol.L (22-28)
[2016-11-19 02:28] LABS: ARTERIAL BLOOD GAS PH 7.18 (7.35-7.45)
[2016-11-19] MEDS: NOREPINEPHRINE BIT/0.9 % NACL 4 MG/250 ML BAG IV PRN ×4 (02:53→20:07)
[2016-11-19] MEDS: DOBUTamine 500mg/250ml D5W 500 MG/250 ML BAG IV PRN (02:59)
[2016-11-19 04:14] LABS: ARTERIAL BLOOD GAS HCO3 18.4 mmol/L (21-28); ARTERIAL BLOOD GAS PCO2 47 mm/Hg (35-45); ARTERIAL BLOOD GAS TCO2 19.8 mmol.L (22-28)
[2016-11-19 05:25] LABS: PH,URINE 5.5 (4.7-8.0); URINE BILIRUBIN SMALL (NEGATIVE); URINE BLOOD MODERATE (NEGATIVE); URINE GLUCOSE (UA) NEGATIVE (NEGATIVE); URINE LEUKOCYTE ESTERASE MODERATE Leu/uL (NEGATIVE); URINE NITRATE NEGATIVE (NEGATIVE); URINE PROTEIN 100 mg/dL (<30 mg/dL)
[2016-11-19 05:36] LABS: URINE APPEARANCE CLOUDY (CLEAR); URINE COLOR YELLOW (YELLOW)
[2016-11-19 05:40] LABS: CREATININE,RANDOM URINE 154 mg/dL
[2016-11-19 05:41] LABS: URINE WBC TNTC /hpf (0-6)
[2016-11-19 05:42] LABS: URINE BACTERIA MOD (NEG)
[2016-11-19 06:15] LABS: ARTERIAL BLOOD GAS HCO3 18.4 mmol/L (21-28); ARTERIAL BLOOD GAS O2 SAT 94.5 % (95-98); ARTERIAL BLOOD GAS PCO2 45 mm/Hg (35-45); ARTERIAL BLOOD GAS PH 7.22 (7.35-7.45); ARTERIAL BLOOD GAS TCO2 19.8 mmol.L (22-28)
[2016-11-19 06:25] LABS: HEMOGLOBIN 8.6 g/dL (14.0-18.0); MEAN CELL VOLUME 90.9 fl (80.0-105.0); MEAN CORPUSCULAR HEMOGLOBIN 29.1 pg (25.0-35.0); MEAN PLATELET VOLUME 12.2 fl (7.0-11.0); PLATELET COUNT 160 10^3/uL (120.0-450.0); RBC 2.96 10^6/uL (3.5-6.1); RED CELL DISTRIBUTION WIDTH 16.7 % (11.5-14.5); WHITE BLOOD COUNT 18.7 10^3/ul (4.5-11.0)
[2016-11-19 06:37] LABS: ALB/GLOB RATIO 0.8 (1.1-1.8); ALBUMIN 2.5 g/dL (3.0-4.8)
[2016-11-19] MEDS ORDERED: Vancomycin 1.5 GM in Sodium Chloride 0.9% 500 ML IVPB ONE (06:40)
[2016-11-19 06:59] LABS: BAND 8 % (0-2); LYMPHOCYTE 5 % (22.0-35.0); MONOCYTE 3 % (1.0-6.0); NEUTROPHIL 84 % (50.0-70.0); PLATELET ESTIMATE NORMAL (NORMAL)
[2016-11-19] MEDS: Levalbuterol 1.25 MG/3 ML Inhal Soln UD IH SCH ×3 (07:13→20:05)
[2016-11-19 07:45] LABS: CALCIUM 6.3 mg/dL (8.4-10.5)
[2016-11-19 08:19] LABS: MAGNESIUM 2.9 mg/dL (1.7-2.2)
--- NOTE | 2016-11-19 08:57 | RAD ---
HISTORY: hypoxemic failure COMPARISON: 11/18/2016 FINDINGS: LUNGS: Diffuse infiltrate is unchanged. Endotracheal tube in satisfactory position PLEURA: No significant pleural effusion identified, no pneumothorax apparent. CARDIOVASCULAR: Normal. OSSEOUS STRUCTURES: No significant abnormalities. VISUALIZED UPPER ABDOMEN: Normal. OTHER FINDINGS: None. IMPRESSION: Diffuse infiltrate unchanged
--- NOTE | 2016-11-19 09:05 | PN ---
DATE: 11/18/2016 SUBJECTIVE: The patient is a 76-year-old male with history of hypertension, diabetes, gout, status post PTCA, status post carotid endarterectomy, status post CVA, WHO IS KNOWN TO BE ALLERGIC TO SULFA DRUGS AND LOVASTATIN, who was admitted to [facility] with a urinary tract infection, sepsis. He was transferred to the intensive care unit in atrial fibrillation with a rapid ventricular response. His EKG showed atrial fibrillation with PVCs and a left bundle-branch block. CAT scan of the chest showed bibasilar infiltrates. Echocardiogram showed severe septal apical hypokinesis. PHYSICAL EXAMINATION: GENERAL: When seen today, the patient is intubated. He is sedated. VITAL SIGNS: His blood pressure is 99/49, heart rate is 96. LUNGS: His lungs sound clear anteriorly. HEART: His heart is irregularly irregular; however, the rate is now controlled. LABORATORY DATA: This morning's laboratory showed the white blood cell count to be 26.7, hemoglobin and hematocrit are 9.8 and 30.9. MEDICATIONS: He is currently on Daptomycin, dobutamine, fentanyl, heparin intravenous drip, digoxin, Levophed, Protonix, bicarbonate IV, Xopenex, and Zyloprim. ASSESSMENT AND PLAN: The patient's condition is severe. We will continue to follow the patient closely. Clif Vaughn MD
[2016-11-19] MEDS: TRADJENTA 5MG PO SCH (09:25)
--- NOTE | 2016-11-19 09:36 | CP.PCM.PN ---
Subjective - Date & Time of Evaluation Date of Evaluation: 11/19/16 Time of Evaluation: 09:20 - Subjective Subjective: Patient continues to be on the ventilator, paralyzed and sedated, with persistent low grade fevers. Objective - Vital Signs/Intake and Output Vital Signs (last 24 hours): Temp Pulse Resp BP Pulse Ox 100.2 F H 105 H 25 H 105/45 L 93 L 11/19/16 05:10 11/19/16 05:10 11/18/16 16:15 11/19/16 05:10 11/19/16 05:10 Intake and Output: 11/18/16 11/19/16 18:59 06:59 Intake Total 2762 347 Output Total 100 Balance 2662 347 - Medications Medications: Current Medications Allopurinol (Zyloprim) 300 mg PO DAILY [facility] Last Admin: 11/18/16 09:51 Dose: Not Given Artificial Tears (Puralube Opht Oint) 1 appl OU Q2 [facility] Last Admin: 11/19/16 04:00 Dose: 1 applic Aspirin (Aspirin Supp) 300 mg RC DAILY [facility] Home Med (Home Med) 1 unit PO DAILY [facility] Last Admin: 11/18/16 09:51 Dose: Not Given Heparin Sodium/Dextrose (Heparin 25,000 Units/250ml In D5w) 25,000 units in 250 mls @ 8.459 mls/hr IV .Q24H ELIS; 12 UNITS/KG/HR PRN Reason: Protocol Last Admin: 11/18/16 13:07 Dose: 16 units/kg/hr, 11.278 mls/hr Fentanyl Citrate (Fentanyl Citrate/Sodium Chloride 1 Mg/100 Ml) 1,000 mcg in 100 mls @ 2 mls/hr IV .Q24H PRN; Protocol; 20 MCG/HR PRN Reason: TITRATE PER MD ORDER Last Admin: 11/18/16 20:29 Dose: 50 mcg/hr, 5 mls/hr NOREPINEPHRINE BIT/0.9 % NACL (Levophed 4 Mg/ 250 Ml Ns Premixed) 4 mg in 250 mls @ 15 mls/hr IV .[id number] PRN; Protocol; 4 MCG/MIN PRN Reason: TITRATE PER MD ORDER Last Titration: 11/19/16 02:55 Dose: 15 mcg/min, 56.25 mls/hr Dobutamine HCl/Dextrose (Dobutamine/Dextrose 5% 500mg/250ml) 500 mg in 250 mls @ 10.573 mls/hr IV .[id number] PRN; Protocol; 5 MCG/KG/MIN PRN Reason: TITRATE PER PROTOCOL Last Admin: 11/19/16 02:59 Dose: 10.573 mls/hr Cefazolin Sodium 2 gm/ Sodium (Chloride) 100 mls @ 200 mls/hr IVPB Q12 ELIS PRN Reason: Protocol Last Admin: 11/18/16 21:32 Dose: 200 mls/hr Meropenem 500 mg/ Sodium (Chloride) 100 mls @ 100 mls/hr IVPB Q12 ELIS PRN Reason: Protocol Stop: 11/25/16 10:01 Last Admin: 11/18/16 21:31 Dose: 100 mls/hr Propofol (Diprivan) 1,000 mg in 100 mls @ 2.183 mls/hr IV .Q24H PRN; Protocol; 5 MCG/KG/MIN PRN Reason: TITRATE PER MD ORDER Last Admin: 11/18/16 19:12 Dose: 5 mcg/kg/min, 2.183 mls/hr Cisatracurium Besylate 100 mg/ (Sodium Chloride) 260 mls @ 17.02 mls/hr IV .[id number] PRN; 1.5 MCG/KG/MIN PRN Reason: TITRATE PER MD ORDER Last Admin: 11/18/16 20:31 Dose: 17.02 mls/hr Acetaminophen (Ofirmev) 1,000 mg in 100 mls @ 400 mls/hr IVPB Q6H PRN PRN Reason: Temperature Stop: 11/20/16 19:57 Last Admin: 11/18/16 21:55 Dose: 400 mls/hr Vancomycin HCl 1.5 gm/ Sodium (Chloride) 250 mls @ 167 mls/hr IVPB ONCE ONE PRN Reason: Protocol Stop: 11/19/16 08:09 Levalbuterol HCl (Xopenex) 1.25 mg IH TIDRESP [facility] Last Admin: 11/18/16 19:29 Dose: 1.25 mg Pantoprazole Sodium (Protonix Inj) 40 mg IVP DAILY [facility] Last Admin: 11/18/16 09:53 Dose: 40 mg - Labs Labs: 11/18/16 04:00 11/18/16 04:00 PT 13.4 Seconds (9.9-11.8) H 11/16/16 13:00 INR 1.24 (0.93-1.08) H 11/16/16 13:00 APTT 63.3 Seconds (23.7-30.8) H 11/18/16 04:00 - Constitutional Appears: Other (Intubated, paralyzed, sedated) - Head Exam Head Exam: NORMAL INSPECTION - ENT Exam Additional comments: ET tube in place - Neck Exam Neck Exam: absent: Meningismus Additional comments: left IJ central venous catheter in place - Respiratory Exam Respiratory Exam: Rales (diffuse) - Cardiovascular Exam Cardiovascular Exam: Tachycardia, +S1, +S2 - GI/Abdominal Exam GI & Abdominal Exam: Soft. absent: Tenderness Assessment and Plan - Assessment and Plan (Free Text) Plan: Assessment septic and cardiogenic shock with acute on chronic renal failure now with ventilator-dependent respiratory failure with methicillin-sensitive Staph aureus bacteremia, source to be determined, R/O discitis R/O endocarditis; MSSA in the urine probably spillage from the blood acute decompensated heart failure now with ARDS, cannot rule out superimposed pneumonia vs. pulmonary fibrosis arthritis gout DM acute on chronic renal failure Plan has been given a dose of IV Vancomycin and Cefepime and Doxycycline on admission then switched to Cefazolin - now we have the patient on Merrem (held Cefazolin since there would be double beta-lactams which may increase risk for side effects - also Merrem would cover MSSA) and gave another dose of IV Vancomycin (which also covers the MSSA) and will Vanco level tomorrow AM - renal function is worsening repeat blood cx are again positive for gram positive cocci - will repeat 2 sets of blood cx again today; recommend MRI of the thoracic and lumbar spines, and JOSEPH when feasible Follow up further Cardiology recommendations (patient currently on Dobutamine and Norepinephrine) Patient continue to be in critical condition Overall prognosis is poor Discussed with Hector (ICU music leader) and ICU team
[2016-11-19] MEDS: Fentanyl 1000mcg/100ml NS 1,000 MCG/100 ML BAG IV PRN ×2 (09:47→19:50)
--- NOTE | 2016-11-19 09:59 | CP.PCM.CON ---
History of Present Illness - History of Present Illness History of Present Illness: Palliative consult requested by DR Delon Vaughn notified 76 year old male who was admitted with back pain. Once admitted he developed shortness of breath with hypoxia and was found to be in rapid fibrillation. He was transferred to the ICU for further medical management. CT scan of chest showed bibasilar infiltrates. He is septic, intubated, on pressors and is in multi organ failure. PMHx: arthritis, chronic back pain, gout, HTN and DM. Social History: Smoker, no alcohol or drug use. Family History: Unknown Advance Care Planning: There is no Advance Directive Past Patient History - Infectious Disease Hx of Infectious Diseases: None - Past Social History Smoking Status: Unknown If Ever Smoked - CARDIAC Hx Hypertension: Yes - ENDOCRINE/METABOLIC Hx Diabetes Mellitus Type 2: Yes - INTEGUMENTARY Other/Comment: brown skin discolorations, dry skin and hard thick toenails to ble - MUSCULOSKELETAL/RHEUMATOLOGICAL Hx Arthritis: Yes Hx Gout: Yes - PSYCHIATRIC Hx Substance Use: No - ANESTHESIA Hx Anesthesia: No Meds Allergies/Adverse Reactions: Allergies Allergy/AdvReac Type Severity Reaction Status Date / Time No Known Allergies Allergy Verified 11/15/16 09:44 - Medications Medications: Current Medications Allopurinol (Zyloprim) 300 mg PO DAILY [facility] Last Admin: 11/19/16 09:26 Dose: Not Given Artificial Tears (Puralube Opht Oint) 1 appl OU Q2 [facility] Last Admin: 11/19/16 07:58 Dose: 1 applic Aspirin (Aspirin Supp) 300 mg RC DAILY [facility] Home Med (Home Med) 1 unit PO DAILY [facility] Last Admin: 11/19/16 09:25 Dose: Not Given Heparin Sodium/Dextrose (Heparin 25,000 Units/250ml In D5w) 25,000 units in 250 mls @ 8.459 mls/hr IV .Q24H ELIS; 12 UNITS/KG/HR PRN Reason: Protocol Last Admin: 11/18/16 13:07 Dose: 16 units/kg/hr, 11.278 mls/hr Fentanyl Citrate (Fentanyl Citrate/Sodium Chloride 1 Mg/100 Ml) 1,000 mcg in 100 mls @ 2 mls/hr IV .Q24H PRN; Protocol; 20 MCG/HR PRN Reason: TITRATE PER MD ORDER Last Admin: 11/19/16 09:47 Dose: 100 mcg/hr, 10 mls/hr NOREPINEPHRINE BIT/0.9 % NACL (Levophed 4 Mg/ 250 Ml Ns Premixed) 4 mg in 250 mls @ 15 mls/hr IV .[id number] PRN; Protocol; 4 MCG/MIN PRN Reason: TITRATE PER MD ORDER Last Admin: 11/19/16 08:02 Dose: 15 mcg/min, 56.25 mls/hr Dobutamine HCl/Dextrose (Dobutamine/Dextrose 5% 500mg/250ml) 500 mg in 250 mls @ 10.573 mls/hr IV .[id number] PRN; Protocol; 5 MCG/KG/MIN PRN Reason: TITRATE PER PROTOCOL Last Admin: 11/19/16 02:59 Dose: 10.573 mls/hr Cefazolin Sodium 2 gm/ Sodium (Chloride) 100 mls @ 200 mls/hr IVPB Q12 [facility] PRN Reason: Protocol Last Admin: 11/18/16 21:32 Dose: 200 mls/hr Meropenem 500 mg/ Sodium (Chloride) 100 mls @ 100 mls/hr IVPB Q12 ELIS PRN Reason: Protocol Stop: 11/25/16 10:01 Last Admin: 11/18/16 21:31 Dose: 100 mls/hr Propofol (Diprivan) 1,000 mg in 100 mls @ 2.183 mls/hr IV .Q24H PRN; Protocol; 5 MCG/KG/MIN PRN Reason: TITRATE PER MD ORDER Last Titration: 11/19/16 09:00 Dose: 25 mcg/kg/min, 10.913 mls/hr Cisatracurium Besylate 100 mg/ (Sodium Chloride) 260 mls @ 17.02 mls/hr IV .[id number] PRN; 1.5 MCG/KG/MIN PRN Reason: TITRATE PER MD ORDER Last Admin: 11/18/16 20:31 Dose: 17.02 mls/hr Acetaminophen (Ofirmev) 1,000 mg in 100 mls @ 400 mls/hr IVPB Q6H PRN PRN Reason: Temperature Stop: 11/20/16 19:57 Last Admin: 11/19/16 08:01 Dose: 400 mls/hr Levalbuterol HCl (Xopenex) 1.25 mg IH TIDRESP [facility] Last Admin: 11/19/16 07:13 Dose: 1.25 mg Pantoprazole Sodium (Protonix Inj) 40 mg IVP DAILY [facility] Last Admin: 11/18/16 09:53 Dose: 40 mg Physical Exam - Constitutional Appears: Chronically Ill - Eye Exam Eye Exam: Normal appearance, PERRL - ENT Exam ENT Exam: Mucous Membranes Moist - Respiratory Exam Respiratory Exam: Decreased Breath Sounds, NORMAL BREATHING PATTERN - Cardiovascular Exam Cardiovascular Exam: Tachycardia, +S1, +S2 - GI/Abdominal Exam GI & Abdominal Exam: Diminished Bowel Sounds, Soft - Extremities Exam Extremities exam: Positive for: pedal pulses present - Neurological Exam Additional comments: sedated - Skin Skin Exam: Dry, Pallor - Additional Findings Additional findings: Palliative performance scale rating 10% Results - Vital Signs Recent Vital Signs: Last Vital Signs Temp 100.6 F H 11/19/16 09:10 Pulse 117 H 11/19/16 09:10 Resp 30 H 11/19/16 07:26 BP 116/50 L 11/19/16 08:20 Pulse Ox 93 L 11/19/16 09:10 - Labs Result Diagrams: 11/19/16 06:15 11/19/16 06:15 Labs: Laboratory Results - last 24 hr 11/18/16 11/18/16 11/18/16 10:20 14:00 18:35 WBC RBC Hgb Hct MCV MCH MCHC RDW Plt Count MPV Neutrophils % (Manual) Band Neutrophils % Lymphocytes % (Manual) Monocytes % (Manual) Platelet Evaluation pCO2 82 H* 75 H* 53 H pO2 147.0 H 93.0 168.0 H HCO3 21.7 22.2 19.8 L ABG pH 7.03 L* 7.08 L* 7.18 L* ABG Total CO2 24.2 24.5 21.4 L ABG O2 Saturation 100.2 H 98.9 H 100.0 H ABG Base Excess -10.6 L -9.1 L -8.9 L ABG Potassium 5.6 H 5.5 H 5.6 H Sodium 138.0 137.0 137.0 Chloride 103.0 104.0 106.0 Glucose 186 H 209 H 211 H Lactate 2.4 H 1.8 1.6 Mechanical Rate 24 25 FiO2 100.0 80.0 80.0 Tidal Volume 380 400 PEEP 14 12 Potassium Carbon Dioxide Anion Gap BUN Creatinine Est GFR ( Amer) Est GFR (Non-Af Amer) Random Glucose Calcium Phosphorus Magnesium Total Bilirubin AST ALT Alkaline Phosphatase Total Protein Albumin Globulin Albumin/Globulin Ratio Arterial Blood Potassium 5.6 H 5.5 H 5.6 H Urine Color Urine Appearance Urine pH Ur Specific [place] Urine Protein Urine Glucose (UA) Urine Ketones Urine Blood Urine Nitrate Urine Bilirubin Urine Urobilinogen Ur Leukocyte Esterase Urine RBC Urine WBC Ur Epithelial Cells Urine Bacteria Urine Eosinophils Ur Random Creatinine Ur Random Sodium 11/18/16 11/19/16 11/19/16 22:11 00:11 02:19 WBC RBC Hgb Hct MCV MCH MCHC RDW Plt Count MPV Neutrophils % (Manual) Band Neutrophils % Lymphocytes % (Manual) Monocytes % (Manual) Platelet Evaluation pCO2 56 H 51 H 51 H pO2 96.0 79.0 L 82.0 HCO3 20.4 L 19.0 L 19.0 L ABG pH 7.17 L* 7.18 L* 7.18 L* ABG Total CO2 22.1 20.6 L 20.6 L ABG O2 Saturation 99.5 H 98.3 H 98.4 H ABG Base Excess -8.0 L -9.0 L -9.5 L ABG Potassium 5.3 H 5.0 4.9 Sodium 136.0 138.0 139.0 Chloride 103.0 105.0 106.0 Glucose 220 H 211 H 197 H Lactate 1.7 1.6 1.3 Mechanical Rate FiO2 60.0 60.0 50.0 Tidal Volume PEEP Potassium Carbon Dioxide Anion Gap BUN Creatinine Est GFR ( Amer) Est GFR (Non-Af Amer) Random Glucose Calcium Phosphorus Magnesium Total Bilirubin AST ALT Alkaline Phosphatase Total Protein Albumin Globulin Albumin/Globulin Ratio Arterial Blood Potassium 5.3 H 5.0 4.9 Urine Color Urine Appearance Urine pH Ur Specific [place] Urine Protein Urine Glucose (UA) Urine Ketones Urine Blood Urine Nitrate Urine Bilirubin Urine Urobilinogen Ur Leukocyte Esterase Urine RBC Urine WBC Ur Epithelial Cells Urine Bacteria Urine Eosinophils Ur Random Creatinine Ur Random Sodium 11/19/16 11/19/16 11/19/16 04:12 05:08 05:08 WBC RBC Hgb Hct MCV MCH MCHC RDW Plt Count MPV Neutrophils % (Manual) Band Neutrophils % Lymphocytes % (Manual) Monocytes % (Manual) Platelet Evaluation pCO2 47 H pO2 74.0 L HCO3 18.4 L ABG pH 7.20 L ABG Total CO2 19.8 L ABG O2 Saturation 97.0 ABG Base Excess -9.4 L ABG Potassium 4.8 Sodium 138.0 Chloride 106.0 Glucose 209 H Lactate 1.3 Mechanical Rate FiO2 50.0 Tidal Volume PEEP Potassium Carbon Dioxide Anion Gap BUN Creatinine Est GFR ( Amer) Est GFR (Non-Af Amer) Random Glucose Calcium Phosphorus Magnesium Total Bilirubin AST ALT Alkaline Phosphatase Total Protein Albumin Globulin Albumin/Globulin Ratio Arterial Blood Potassium 4.8 Urine Color Yellow Urine Appearance Cloudy Urine pH 5.5 Ur Specific [place] >= 1.030 Urine Protein 100 H Urine Glucose (UA) Negative Urine Ketones Trace H Urine Blood Moderate H Urine Nitrate Negative Urine Bilirubin Small H Urine Urobilinogen 1.0 H Ur Leukocyte Esterase Moderate H Urine RBC 2 - 5 Urine WBC Tntc Ur Epithelial Cells 1 - 3 Urine Bacteria Mod Urine Eosinophils Ur Random Creatinine 154 Ur Random Sodium 13 11/19/16 11/19/16 11/19/16 05:09 06:00 06:15 WBC 18.7 H D RBC 2.96 L Hgb 8.6 L Hct 26.9 L MCV 90.9 MCH 29.1 MCHC 32.0 RDW 16.7 H Plt Count 160 MPV 12.2 H Neutrophils % (Manual) 84 H Band Neutrophils % 8 H Lymphocytes % (Manual) 5 L Monocytes % (Manual) 3 Platelet Evaluation Normal pCO2 45 pO2 61.0 L HCO3 18.4 L ABG pH 7.22 L ABG Total CO2 19.8 L ABG O2 Saturation 94.5 L ABG Base Excess -9.1 L ABG Potassium 5.0 Sodium 138.0 Chloride 106.0 Glucose 200 H Lactate 1.3 Mechanical Rate FiO2 50.0 Tidal Volume PEEP Potassium Carbon Dioxide Anion Gap BUN Creatinine Est GFR ( Amer) Est GFR (Non-Af Amer) Random Glucose Calcium Phosphorus Magnesium Total Bilirubin AST ALT Alkaline Phosphatase Total Protein Albumin Globulin Albumin/Globulin Ratio Arterial Blood Potassium 5.0 Urine Color Urine Appearance Urine pH Ur Specific [place] Urine Protein Urine Glucose (UA) Urine Ketones Urine Blood Urine Nitrate Urine Bilirubin Urine Urobilinogen Ur Leukocyte Esterase Urine RBC Urine WBC Ur Epithelial Cells Urine Bacteria Urine Eosinophils Negative Ur Random Creatinine Ur Random Sodium 11/19/16 11/19/16 06:15 08:00 WBC RBC Hgb Hct MCV MCH MCHC RDW Plt Count MPV Neutrophils % (Manual) Band Neutrophils % Lymphocytes % (Manual) Monocytes % (Manual) Platelet Evaluation pCO2 pO2 HCO3 ABG pH ABG Total CO2 ABG O2 Saturation ABG Base Excess ABG Potassium Sodium 138 Chloride 102 Glucose Lactate Mechanical Rate FiO2 Tidal Volume PEEP Potassium 5.2 H Carbon Dioxide 19 L Anion Gap 22 H BUN 130 H* Creatinine 4.4 H Est GFR ( Amer) 16 Est GFR (Non-Af Amer) 13 Random Glucose 208 H Calcium 6.3 L* Phosphorus 11.0 H Magnesium 2.9 H Total Bilirubin 2.2 H AST 122 H ALT 48 Alkaline Phosphatase 100 Total Protein 5.7 L Albumin 2.5 L Globulin 3.2 Albumin/Globulin Ratio 0.8 L Arterial Blood Potassium Urine Color Urine Appearance Urine pH Ur Specific [place] Urine Protein Urine Glucose (UA) Urine Ketones Urine Blood Urine Nitrate Urine Bilirubin Urine Urobilinogen Ur Leukocyte Esterase Urine RBC Urine WBC Ur Epithelial Cells Urine Bacteria Urine Eosinophils Ur Random Creatinine Ur Random Sodium Assessment & Plan - Assessment and Plan (Free Text) Assessment: 76 year old male admitted with acute sepsis, multi organ failure. He is intubated and on pressors. His condition is ectremrly guarded Multiple attempts made, but I was unable to reach contact listed on face sheet. I also spoke with Dr Vaughn's office who stated that they have no further contact information for this patient. There is no Advance Directive on record. rehabilitation services aide awre of situation , will attempt to reach contact via registered mail.
[2016-11-19] MEDS: Propofol 10 mg/ml 1,000 MG/100 ML VIAL IV PRN ×2 (10:55→19:51)
[2016-11-19] MEDS: Heparin 25,000units in D5W 25,000 UNITS/250 ML BAG IV SCH (11:29)
--- NOTE | 2016-11-19 12:25 | MRI ---
PROCEDURE: MRI BRAIN WITHOUT CONTRAST HISTORY: r/o septic emboli COMPARISON: None. TECHNIQUE: Multiplanar, multisequence MR images of the brain were obtained without intravenous contrast enhancement. FINDINGS: HEMORRHAGE: No evidence of significant intracranial hemorrhage. DWI: There are small foci of diffusion restriction at the left thalamus left putamen/lentiform nucleus and right coronal radiata centrum semiovale. The possibility of septic emboli is not totally excluded. BRAIN PARENCHYMA: Small old bilateral basal ganglia lacunar infarction are noted. Mild to moderate atrophy and mild chronic microvascular white matter ischemic disease. VENTRICLES: There is a persistent septum pellucidum noted. No evidence of hydrocephalus. CRANIUM: Unremarkable. ORBITS: Grossly unremarkable. PARANASAL SINUSES/MASTOIDS: Mild sinuses mucosal thickening seen. There is suspicious for bilateral mastoid effusion. Correlate clinically for mastoiditis. VASCULAR SYSTEM: Skull base flow voids intact. OTHER FINDINGS: None. IMPRESSION: Small foci of diffusion restriction at the left thalamus left lentiform nucleus and right coronal radiata. The differential diagnosis includes lacunar infarction due to embolic disease. The possibility of septic emboli is not totally excluded. Mild to moderate atrophy and mild chronic microvascular ischemic disease. Suspicious for bilateral mastoid effusion. Correlate clinically for mastoiditis.
[2016-11-19] MEDS: Meropenem 500 MG in Sodium Chloride 0.9% 100 ML IVPB SCH ×2 (12:26→21:43)
--- NOTE | 2016-11-19 13:22 | MRI ---
PROCEDURE: MR THORACIC SPINE WITHOUT CONTRAST HISTORY: rule out discitis / osteomyelitis COMPARISON: None available. TECHNIQUE: Multiecho multiplanar sequences were performed through the thoracic spine without the use of intravenous contrast. FINDINGS: ALIGNMENT: Normal thoracic spinal alignment. Normal thoracic kyphosis. VERTEBRA: Vertebral body height are preserved. MARROW: Vertebral hemangioma at T11 PARASPINAL SOFT TISSUES: Unremarkable. CORD: Unremarkable thoracic cord. No volume loss, signal abnormality or syrinx. DISCS: No disc herniation, spinal canal stenosis, or neuroforaminal narrowing. Mild disc degeneration with desiccation of the disc material OTHER FINDINGS: None. IMPRESSION: Unremarkable non-contrast enhanced MRI of the thoracic spine
[2016-11-19] MEDS ORDERED: Digoxin 500 mcg/2ml (0.5 mg/2ml) Inj IVP ONE (13:25)
[2016-11-19] MEDS ORDERED: Amiodarone 150 mg/D5W 100 ml 150 MG/100 ML BAG IVPB ONE (13:26)
--- NOTE | 2016-11-19 13:31 | MRI ---
PROCEDURE: MR LUMBAR SPINE WITHOUT CONTRAST HISTORY: rule out discitis / osteomyelitis COMPARISON: CT 11/15/2016 TECHNIQUE: Multiecho multiplanar sequences were performed through the lumbar spine without the use of intravenous contrast. FINDINGS: Normal lumbar lordosis. Vertebral body heights are preserved. Marrow signal unremarkable. Conus medullaris unremarkable at the level of L1 Paraspinal soft tissues are unremarkable. T12-L1: No disc herniation, spinal canal stenosis or neural foraminal narrowing. L1-2: No disc herniation, spinal canal stenosis or neural foraminal narrowing. L2-3: Moderate disc bulge asymmetric to the right L3-4: There is severe disc degeneration. There is loss of disc height and a diffuse disc bulge. There is also facet arthropathy with a moderate to severe degree of central stenosis and left-sided foraminal stenosis. Increased signal intensity seen within the disc on T2 weighted images. This finding is also seen at L4-5. This is most likely due to disc degeneration rather than discitis. There is no marrow edema or paravertebral mass L4-5: There is severe disc degeneration and disc bulging with facet arthropathy and severe central canal stenosis. This is best seen on image 7 series 6. Increased signal intensity within the disc. See above L5-S1: Large asymmetric disc bulge extending to the right with foraminal stenosis OTHER FINDINGS: None. 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 See comments
[2016-11-19 13:39] VITALS: PULSE 129
[2016-11-19] MEDS: Amiodarone 360 mg/D5W 200 ml 360 MG/200 ML BAG IV SCH ×3 (14:50→22:55)
--- NOTE | 2016-11-19 18:24 | CP.CCUPN ---
CCU Subjective - Physician Review Events Since Last Encounter (Free Text): 11/19/16 18:09 76 y/o M w/ MODS ARDS, hypoxemic respiratory failure Overnight hypoxia improved and PH improved CCU Objective - Vital Signs / Intake & Output Vital Signs (Last 4 hours): Vital Signs Temp Pulse BP Pulse Ox 11/19/16 17:40 99.0 F 97 H 116/39 L 96 11/19/16 17:30 98.8 F 102 H 116/41 L 96 11/19/16 17:20 98.8 F 102 H 111/49 L 96 11/19/16 17:10 98.8 F 102 H 112/44 L 96 11/19/16 17:00 98.8 F 107 H 120/38 L 96 11/19/16 16:50 98.8 F 112 H 117/42 L 96 11/19/16 16:40 98.6 F 117 H 116/53 L 96 11/19/16 16:30 98.6 F 101 H 119/52 L 96 11/19/16 16:20 98.6 F 104 H 120/45 L 96 11/19/16 16:10 98.6 F 107 H 107/44 L 96 11/19/16 16:00 98.6 F 101 H 95/35 L 95 11/19/16 15:50 98.6 F 124 H 109/51 L 96 11/19/16 15:40 98.6 F 103 H 111/45 L 95 11/19/16 15:30 98.6 F 111 H 115/41 L 96 11/19/16 15:20 98.6 F 101 H 118/44 L 95 11/19/16 15:10 98.6 F 126 H 96 11/19/16 15:00 98.6 F 113 H 96 11/19/16 14:50 98.6 F 99 H 95 11/19/16 14:40 98.6 F 90 95 11/19/16 14:30 98.6 F 124 H 96 11/19/16 14:20 98.8 F 126 H 96 11/19/16 14:10 98.6 F 123 H 96 Intake and Output (Last 8hrs): Intake & Output 11/19/16 11/19/16 11/19/16 06:59 14:59 22:59 Intake Total 1515 950 Output Total 60 Balance 1455 950 Weight 162 lb Intake: IV 1515 950 Left Internal Jugular 1381 Right Wrist 134 Oral 0 Tube Feeding 0 Output: Urine 60 Urethral (Wolfe) 60 Emesis 0 Oral Regurgitation 0 Other: Voiding Method Indwelling Catheter Indwelling Catheter # Bowel Movements 0 - Physical Exam Head: Positive for: Atraumatic, Normocephalic Pupils: Positive for: PERRL Extroacular Muscles: Positive for: EOMI Conjunctiva: Positive for: Normal Mouth: Positive for: Moist Mucous Membranes Pharnyx: Negative for: ERYTHEMA, EXUDATE, TONSILS ENLARGED Neck: Positive for: Normal Range of Motion Respiratory/Chest: Positive for: Decreased Breath Sounds, Rhonchi, Tachypneic. Negative for: Respiratory Distress, Accessory Muscle Use Cardiovascular: Positive for: Regular Rate and Rhythm, Normal S1, S2. Negative for: Murmurs Abdomen: Positive for: Normal Bowel Sounds. Negative for: Tenderness, Distention, Peritoneal Signs Back: Positive for: Normal Inspection (No reproducible tenderness) Upper Extremity: Positive for: Normal Inspection. Negative for: Cyanosis, Edema Lower Extremity: Positive for: Normal Inspection. Negative for: Edema Neurological: Positive for: GCS=15, Speech Normal Skin: Positive for: Warm, Dry, Normal Color. Negative for: Rashes Psychiatric: Positive for: Alert, Oriented x 3, Normal Insight, Normal Concentration - Medications Active Medications: Active Medications Generic Name Dose Route Start Last Admin Trade Name Freq PRN Reason Stop Dose Admin Allopurinol 300 mg 11/16/16 10:00 11/19/16 09:26 Zyloprim PO Not Given DAILY [facility] Artificial Tears 1 appl 11/18/16 10:11/19/16 14:00 Puralube Opht Oint OU 1 applic Q2 ELIS Administration Aspirin 300 mg 11/19/16 10:00 11/19/16 12:26 Aspirin Supp RC 300 mg DAILY ELIS Administration Home Med 1 unit 11/16/16 10:00 11/19/16 09:25 Home Med PO Not Given DAILY ELIS Heparin Sodium/Dextrose 25,000 units in 250 mls @ 8.459 mls/hr 11/16/16 11:00 11/19/16 11:29 Heparin 25,000 Units/250ml In D5w IV 16 units/kg/hr .Q24H ELIS 11.278 mls/hr Protocol Administration 12 UNITS/KG/HR Fentanyl Citrate 1,000 mcg in 100 mls @ 2 mls/hr 11/17/16 22:43 11/19/16 09: 47 Fentanyl Citrate/Sodium Chloride 1 Mg/100 Ml IV 100 mcg/hr .Q24H PRN 10 mls/hr TITRATE PER MD ORDER Administration Protocol 20 MCG/HR NOREPINEPHRINE BIT/0.9 % NACL 4 mg in 250 mls @ 15 mls/hr 11/18/16 08:02 12:43 Levophed 4 Mg/ 250 Ml Ns Premixed IV 20 mcg/min .[id number] PRN 75 mls/hr TITRATE PER MD ORDER Administration Protocol 4 MCG/MIN Dobutamine HCl/Dextrose 500 mg in 250 mls @ 10.573 mls/hr 11/18/16 08:58 02:59 Dobutamine/Dextrose 5% 500mg/250ml IV 10.573 mls/hr .[id number] PRN Administration TITRATE PER PROTOCOL Protocol 5 MCG/KG/MIN Cefazolin Sodium 2 gm/ Sodium 100 mls @ 200 mls/hr 11/18/16 10:00 11/18/16 21 :32 Chloride IVPB 200 mls/hr Q12 ELIS Administration Protocol Meropenem 500 mg/ Sodium 100 mls @ 100 mls/hr 11/18/16 10:00 11/19/16 12:26 Chloride IVPB 11/25/16 10:01 100 mls/hr Q12 ELIS Administration Protocol Propofol 1,000 mg in 100 mls @ 2.183 mls/hr 11/18/16 18:37 11/19/16 10:55 Diprivan IV 25 mcg/kg/min .Q24H PRN 10.913 mls/hr TITRATE PER MD ORDER Administration Protocol 5 MCG/KG/MIN Cisatracurium Besylate 100 mg/ 260 mls @ 17.02 mls/hr 11/18/16 18:41 20:31 Sodium Chloride IV 17.02 mls/hr .[id number] PRN Administration TITRATE PER MD ORDER 1.5 MCG/KG/MIN Acetaminophen 1,000 mg in 100 mls @ 400 mls/hr 11/18/16 19:56 11/19/16 08:01 Ofirmev IVPB 11/20/16 19:57 400 mls/hr Q6H PRN Administration Temperature Amiodarone HCl/Dextrose 360 mg in 200 mls @ 33.333 mls/hr 11/19/16 13:30 14:50 Nexterone 360 Mg In D5w 200 Ml (Premix) IV 11/19/16 19:31 33.333 mls/hr .Q6H ELIS Administration Protocol 1 MG/MIN Amiodarone HCl/Dextrose 360 mg in 200 mls @ 16.667 mls/hr 11/19/16 19:31 Nexterone 360 Mg In D5w 200 Ml (Premix) IV .Q12H ELIS Protocol 0.5 MG/MIN Levalbuterol HCl 1.25 mg 11/18/16 08:00 11/19/16 13:08 Xopenex IH 1.25 mg TIDRESP ELIS Administration Pantoprazole Sodium 40 mg 11/18/16 10:00 11/19/16 12:27 Protonix Inj IVP 40 mg DAILY ELIS Administration - Patient Studies Lab Studies: Microbiology Studies 11/18/16 11:23 Blood Culture - Preliminary Blood-Venous Gram Positive Cocci Gram Stain - Final 11/18/16 11:23 Blood Culture - Preliminary Blood-Venous Gram Positive Cocci Gram Stain - Final 11/17/16 07:30 Blood Culture - Preliminary Blood-Venous Staphylococcus Aureus Gram Stain - Final 11/17/16 07:30 S.aureus & Coag-Neg Staph PNA FISH - Final Blood-Venous Blood Culture - Preliminary Staphylococcus Aureus Gram Stain - Final Lab Studies 11/19/16 11/19/16 11/19/16 Range/Units 15:00 08:00 06:15 WBC (4.5-11.0) 10^3/ul RBC (3.5-6.1) 10^6/uL Hgb (14.0-18.0) g/dL Hct (42.0-52.0) % MCV (80.0-105.0) fl MCH (25.0-35.0) pg MCHC (31.0-37.0) g/dl RDW (11.5-14.5) % Plt Count (120.0-450.0) 10^3/uL MPV (7.0-11.0) fl Neutrophils % (Manual) (50.0-70.0) % Band Neutrophils % (0-2) % Lymphocytes % (Manual) (22.0-35.0) % Monocytes % (Manual) (1.0-6.0) % Platelet Evaluation (NORMAL) APTT 56.9 H (23.7-30.8) Seconds pCO2 (35-45) mm/Hg pO2 (80-100) mm/Hg HCO3 (21-28) mmol/L ABG pH (7.35-7.45) ABG Total CO2 (22-28) mmol.L ABG O2 Saturation (95-98) % ABG Base Excess (-2.0-3.0) mmol/L ABG Potassium (3.6-5.2) mmol/L Sodium 138 (132-148) mmol/L Chloride 102 (98-107) mmol/L Glucose (75-110) mg/dl Lactate (0.7-2.1) mmol/L FiO2 % Potassium 5.2 H (3.6-5.0) mmol/L Carbon Dioxide 19 L (21-33) mmol/L Anion Gap 22 H (10-20) BUN 130 H* (7-21) mg/dL Creatinine 4.4 H (0.5-1.4) mg/dL Est GFR ( Amer) 16 Est GFR (Non-Af Amer) 13 Random Glucose 208 H (70-110) mg/dL Calcium 6.3 L* (8.4-10.5) mg/dL Phosphorus 11.0 H (2.5-4.5) mg/dL Magnesium 2.9 H (1.7-2.2) mg/dL Total Bilirubin 2.2 H (0.2-1.3) mg/dL AST 122 H (15-59) U/L ALT 48 (7-56) U/L Alkaline Phosphatase 100 (38-133) U/L Total Protein 5.7 L (5.8-8.3) g/dL Albumin 2.5 L (3.0-4.8) g/dL Globulin 3.2 gm/dL Albumin/Globulin Ratio 0.8 L (1.1-1.8) Arterial Blood Potassium (3.6-5.2) mmol/L Urine Color (YELLOW) Urine Appearance (CLEAR) Urine pH (4.7-8.0) Ur Specific [place] (1.005-1.035) Urine Protein (<30 mg/dL) mg/dL Urine Glucose (UA) (NEGATIVE) mg/dL Urine Ketones (NEGATIVE) mg/dL Urine Blood (NEGATIVE) Urine Nitrate (NEGATIVE) Urine Bilirubin (NEGATIVE) Urine Urobilinogen (<1 E.U./dL) E.U./dL Ur Leukocyte Esterase (NEGATIVE) Narayan/uL Urine RBC (0-2) /hpf Urine WBC (0-6) /hpf Ur Epithelial Cells (0-5) /hpf Urine Bacteria (NEG) Urine Eosinophils Ur Random Creatinine mg/dL Ur Random Sodium meq/L 11/19/16 11/19/16 11/19/16 Range/Units 06:15 06:00 05:09 WBC 18.7 H D (4.5-11.0) 10^3/ul RBC 2.96 L (3.5-6.1) 10^6/uL Hgb 8.6 L (14.0-18.0) g/dL Hct 26.9 L (42.0-52.0) % MCV 90.9 (80.0-105.0) fl MCH 29.1 (25.0-35.0) pg MCHC 32.0 (31.0-37.0) g/dl RDW 16.7 H (11.5-14.5) % Plt Count 160 (120.0-450.0) 10^3/uL MPV 12.2 H (7.0-11.0) fl Neutrophils % (Manual) 84 H (50.0-70.0) % Band Neutrophils % 8 H (0-2) % Lymphocytes % (Manual) 5 L (22.0-35.0) % Monocytes % (Manual) 3 (1.0-6.0) % Platelet Evaluation Normal (NORMAL) APTT (23.7-30.8) Seconds pCO2 45 (35-45) mm/Hg pO2 61.0 L (80-100) mm/Hg HCO3 18.4 L (21-28) mmol/L ABG pH 7.22 L (7.35-7.45) ABG Total CO2 19.8 L (22-28) mmol.L ABG O2 Saturation 94.5 L (95-98) % ABG Base Excess -9.1 L (-2.0-3.0) mmol/L ABG Potassium 5.0 (3.6-5.2) mmol/L Sodium 138.0 (132-148) mmol/L Chloride 106.0 (98-107) mmol/L Glucose 200 H (75-110) mg/dl Lactate 1.3 (0.7-2.1) mmol/L FiO2 50.0 % Potassium (3.6-5.0) mmol/L Carbon Dioxide (21-33) mmol/L Anion Gap (10-20) BUN (7-21) mg/dL Creatinine (0.5-1.4) mg/dL Est GFR ( Amer) Est GFR (Non-Af Amer) Random Glucose (70-110) mg/dL Calcium (8.4-10.5) mg/dL Phosphorus (2.5-4.5) mg/dL Magnesium (1.7-2.2) mg/dL Total Bilirubin (0.2-1.3) mg/dL AST (15-59) U/L ALT (7-56) U/L Alkaline Phosphatase (38-133) U/L Total Protein (5.8-8.3) g/dL Albumin (3.0-4.8) g/dL Globulin gm/dL Albumin/Globulin Ratio (1.1-1.8) Arterial Blood Potassium 5.0 (3.6-5.2) mmol/L Urine Color (YELLOW) Urine Appearance (CLEAR) Urine pH (4.7-8.0) Ur Specific [place] (1.005-1.035) Urine Protein (<30 mg/dL) mg/dL Urine Glucose (UA) (NEGATIVE) mg/dL Urine Ketones (NEGATIVE) mg/dL Urine Blood (NEGATIVE) Urine Nitrate (NEGATIVE) Urine Bilirubin (NEGATIVE) Urine Urobilinogen (<1 E.U./dL) E.U./dL Ur Leukocyte Esterase (NEGATIVE) Narayan/uL Urine RBC (0-2) /hpf Urine WBC (0-6) /hpf Ur Epithelial Cells (0-5) /hpf Urine Bacteria (NEG) Urine Eosinophils Negative Ur Random Creatinine mg/dL Ur Random Sodium meq/L 11/19/16 11/19/16 11/19/16 Range/Units 05:08 05:08 04:12 WBC (4.5-11.0) 10^3/ul RBC (3.5-6.1) 10^6/uL Hgb (14.0-18.0) g/dL Hct (42.0-52.0) % MCV (80.0-105.0) fl MCH (25.0-35.0) pg MCHC (31.0-37.0) g/dl RDW (11.5-14.5) % Plt Count (120.0-450.0) 10^3/uL MPV (7.0-11.0) fl Neutrophils % (Manual) (50.0-70.0) % Band Neutrophils % (0-2) % Lymphocytes % (Manual) (22.0-35.0) % Monocytes % (Manual) (1.0-6.0) % Platelet Evaluation (NORMAL) APTT (23.7-30.8) Seconds pCO2 47 H (35-45) mm/Hg pO2 74.0 L (80-100) mm/Hg HCO3 18.4 L (21-28) mmol/L ABG pH 7.20 L (7.35-7.45) ABG Total CO2 19.8 L (22-28) mmol.L ABG O2 Saturation 97.0 (95-98) % ABG Base Excess -9.4 L (-2.0-3.0) mmol/L ABG Potassium 4.8 (3.6-5.2) mmol/L Sodium 138.0 (132-148) mmol/L Chloride 106.0 (98-107) mmol/L Glucose 209 H (75-110) mg/dl Lactate 1.3 (0.7-2.1) mmol/L FiO2 50.0 % Potassium (3.6-5.0) mmol/L Carbon Dioxide (21-33) mmol/L Anion Gap (10-20) BUN (7-21) mg/dL Creatinine (0.5-1.4) mg/dL Est GFR ( Amer) Est GFR (Non-Af Amer) Random Glucose (70-110) mg/dL Calcium (8.4-10.5) mg/dL Phosphorus (2.5-4.5) mg/dL Magnesium (1.7-2.2) mg/dL Total Bilirubin (0.2-1.3) mg/dL AST (15-59) U/L ALT (7-56) U/L Alkaline Phosphatase (38-133) U/L Total Protein (5.8-8.3) g/dL Albumin (3.0-4.8) g/dL Globulin gm/dL Albumin/Globulin Ratio (1.1-1.8) Arterial Blood Potassium 4.8 (3.6-5.2) mmol/L Urine Color Yellow (YELLOW) Urine Appearance Cloudy (CLEAR) Urine pH 5.5 (4.7-8.0) Ur Specific [place] >= 1.030 (1.005-1.035) Urine Protein 100 H (<30 mg/dL) mg/dL Urine Glucose (UA) Negative (NEGATIVE) mg/dL Urine Ketones Trace H (NEGATIVE) mg/dL Urine Blood Moderate H (NEGATIVE) Urine Nitrate Negative (NEGATIVE) Urine Bilirubin Small H (NEGATIVE) Urine Urobilinogen 1.0 H (<1 E.U./dL) E.U./dL Ur Leukocyte Esterase Moderate H (NEGATIVE) Narayan/uL Urine RBC 2 - 5 (0-2) /hpf Urine WBC Tntc (0-6) /hpf Ur Epithelial Cells 1 - 3 (0-5) /hpf Urine Bacteria Mod (NEG) Urine Eosinophils Ur Random Creatinine 154 mg/dL Ur Random Sodium 13 meq/L 11/19/16 11/19/16 11/18/16 Range/Units 02:19 00:11 22:11 WBC (4.5-11.0) 10^3/ul RBC (3.5-6.1) 10^6/uL Hgb (14.0-18.0) g/dL Hct (42.0-52.0) % MCV (80.0-105.0) fl MCH (25.0-35.0) pg MCHC (31.0-37.0) g/dl RDW (11.5-14.5) % Plt Count (120.0-450.0) 10^3/uL MPV (7.0-11.0) fl Neutrophils % (Manual) (50.0-70.0) % Band Neutrophils % (0-2) % Lymphocytes % (Manual) (22.0-35.0) % Monocytes % (Manual) (1.0-6.0) % Platelet Evaluation (NORMAL) APTT (23.7-30.8) Seconds pCO2 51 H 51 H 56 H (35-45) mm/Hg pO2 82.0 79.0 L 96.0 (80-100) mm/Hg HCO3 19.0 L 19.0 L 20.4 L (21-28) mmol/L ABG pH 7.18 L* 7.18 L* 7.17 L* (7.35-7.45) ABG Total CO2 20.6 L 20.6 L 22.1 (22-28) mmol.L ABG O2 Saturation 98.4 H 98.3 H 99.5 H (95-98) % ABG Base Excess -9.5 L -9.0 L -8.0 L (-2.0-3.0) mmol/L ABG Potassium 4.9 5.0 5.3 H (3.6-5.2) mmol/L Sodium 139.0 138.0 136.0 (132-148) mmol/L Chloride 106.0 105.0 103.0 (98-107) mmol/L Glucose 197 H 211 H 220 H (75-110) mg/dl Lactate 1.3 1.6 1.7 (0.7-2.1) mmol/L FiO2 50.0 60.0 60.0 % Potassium (3.6-5.0) mmol/L Carbon Dioxide (21-33) mmol/L Anion Gap (10-20) BUN (7-21) mg/dL Creatinine (0.5-1.4) mg/dL Est GFR ( Amer) Est GFR (Non-Af Amer) Random Glucose (70-110) mg/dL Calcium (8.4-10.5) mg/dL Phosphorus (2.5-4.5) mg/dL Magnesium (1.7-2.2) mg/dL Total Bilirubin (0.2-1.3) mg/dL AST (15-59) U/L ALT (7-56) U/L Alkaline Phosphatase (38-133) U/L Total Protein (5.8-8.3) g/dL Albumin (3.0-4.8) g/dL Globulin gm/dL Albumin/Globulin Ratio (1.1-1.8) Arterial Blood Potassium 4.9 5.0 5.3 H (3.6-5.2) mmol/L Urine Color (YELLOW) Urine Appearance (CLEAR) Urine pH (4.7-8.0) Ur Specific [place] (1.005-1.035) Urine Protein (<30 mg/dL) mg/dL Urine Glucose (UA) (NEGATIVE) mg/dL Urine Ketones (NEGATIVE) mg/dL Urine Blood (NEGATIVE) Urine Nitrate (NEGATIVE) Urine Bilirubin (NEGATIVE) Urine Urobilinogen (<1 E.U./dL) E.U./dL Ur Leukocyte Esterase (NEGATIVE) Narayan/uL Urine RBC (0-2) /hpf Urine WBC (0-6) /hpf Ur Epithelial Cells (0-5) /hpf Urine Bacteria (NEG) Urine Eosinophils Ur Random Creatinine mg/dL Ur Random Sodium meq/L 11/18/16 Range/Units 18:35 WBC (4.5-11.0) 10^3/ul RBC (3.5-6.1) 10^6/uL Hgb (14.0-18.0) g/dL Hct (42.0-52.0) % MCV (80.0-105.0) fl MCH (25.0-35.0) pg MCHC (31.0-37.0) g/dl RDW (11.5-14.5) % Plt Count (120.0-450.0) 10^3/uL MPV (7.0-11.0) fl Neutrophils % (Manual) (50.0-70.0) % Band Neutrophils % (0-2) % Lymphocytes % (Manual) (22.0-35.0) % Monocytes % (Manual) (1.0-6.0) % Platelet Evaluation (NORMAL) APTT (23.7-30.8) Seconds pCO2 53 H (35-45) mm/Hg pO2 168.0 H (80-100) mm/Hg HCO3 19.8 L (21-28) mmol/L ABG pH 7.18 L* (7.35-7.45) ABG Total CO2 21.4 L (22-28) mmol.L ABG O2 Saturation 100.0 H (95-98) % ABG Base Excess -8.9 L (-2.0-3.0) mmol/L ABG Potassium 5.6 H (3.6-5.2) mmol/L Sodium 137.0 (132-148) mmol/L Chloride 106.0 (98-107) mmol/L Glucose 211 H (75-110) mg/dl Lactate 1.6 (0.7-2.1) mmol/L FiO2 80.0 % Potassium (3.6-5.0) mmol/L Carbon Dioxide (21-33) mmol/L Anion Gap (10-20) BUN (7-21) mg/dL Creatinine (0.5-1.4) mg/dL Est GFR ( Amer) Est GFR (Non-Af Amer) Random Glucose (70-110) mg/dL Calcium (8.4-10.5) mg/dL Phosphorus (2.5-4.5) mg/dL Magnesium (1.7-2.2) mg/dL Total Bilirubin (0.2-1.3) mg/dL AST (15-59) U/L ALT (7-56) U/L Alkaline Phosphatase (38-133) U/L Total Protein (5.8-8.3) g/dL Albumin (3.0-4.8) g/dL Globulin gm/dL Albumin/Globulin Ratio (1.1-1.8) Arterial Blood Potassium 5.6 H (3.6-5.2) mmol/L Urine Color (YELLOW) Urine Appearance (CLEAR) Urine pH (4.7-8.0) Ur Specific [place] (1.005-1.035) Urine Protein (<30 mg/dL) mg/dL Urine Glucose (UA) (NEGATIVE) mg/dL Urine Ketones (NEGATIVE) mg/dL Urine Blood (NEGATIVE) Urine Nitrate (NEGATIVE) Urine Bilirubin (NEGATIVE) Urine Urobilinogen (<1 E.U./dL) E.U./dL Ur Leukocyte Esterase (NEGATIVE) Narayan/uL Urine RBC (0-2) /hpf Urine WBC (0-6) /hpf Ur Epithelial Cells (0-5) /hpf Urine Bacteria (NEG) Urine Eosinophils Ur Random Creatinine mg/dL Ur Random Sodium meq/L Laboratory Results - last 24 hr 11/18/16 11/18/16 11/19/16 18:35 22:11 00:11 WBC RBC Hgb Hct MCV MCH MCHC RDW Plt Count MPV Neutrophils % (Manual) Band Neutrophils % Lymphocytes % (Manual) Monocytes % (Manual) Platelet Evaluation APTT pCO2 53 H 56 H 51 H pO2 168.0 H 96.0 79.0 L HCO3 19.8 L 20.4 L 19.0 L ABG pH 7.18 L* 7.17 L* 7.18 L* ABG Total CO2 21.4 L 22.1 20.6 L ABG O2 Saturation 100.0 H 99.5 H 98.3 H ABG Base Excess -8.9 L -8.0 L -9.0 L ABG Potassium 5.6 H 5.3 H 5.0 Sodium 137.0 136.0 138.0 Chloride 106.0 103.0 105.0 Glucose 211 H 220 H 211 H Lactate 1.6 1.7 1.6 FiO2 80.0 60.0 60.0 Potassium Carbon Dioxide Anion Gap BUN Creatinine Est GFR ( Amer) Est GFR (Non-Af Amer) Random Glucose Calcium Phosphorus Magnesium Total Bilirubin AST ALT Alkaline Phosphatase Total Protein Albumin Globulin Albumin/Globulin Ratio Arterial Blood Potassium 5.6 H 5.3 H 5.0 Urine Color Urine Appearance Urine pH Ur Specific [place] Urine Protein Urine Glucose (UA) Urine Ketones Urine Blood Urine Nitrate Urine Bilirubin Urine Urobilinogen Ur Leukocyte Esterase Urine RBC Urine WBC Ur Epithelial Cells Urine Bacteria Urine Eosinophils Ur Random Creatinine Ur Random Sodium 11/19/16 11/19/16 11/19/16 02:19 04:12 05:08 WBC RBC Hgb Hct MCV MCH MCHC RDW Plt Count MPV Neutrophils % (Manual) Band Neutrophils % Lymphocytes % (Manual) Monocytes % (Manual) Platelet Evaluation APTT pCO2 51 H 47 H pO2 82.0 74.0 L HCO3 19.0 L 18.4 L ABG pH 7.18 L* 7.20 L ABG Total CO2 20.6 L 19.8 L ABG O2 Saturation 98.4 H 97.0 ABG Base Excess -9.5 L -9.4 L ABG Potassium 4.9 4.8 Sodium 139.0 138.0 Chloride 106.0 106.0 Glucose 197 H 209 H Lactate 1.3 1.3 FiO2 50.0 50.0 Potassium Carbon Dioxide Anion Gap BUN Creatinine Est GFR ( Amer) Est GFR (Non-Af Amer) Random Glucose Calcium Phosphorus Magnesium Total Bilirubin AST ALT Alkaline Phosphatase Total Protein Albumin Globulin Albumin/Globulin Ratio Arterial Blood Potassium 4.9 4.8 Urine Color Urine Appearance Urine pH Ur Specific [place] Urine Protein Urine Glucose (UA) Urine Ketones Urine Blood Urine Nitrate Urine Bilirubin Urine Urobilinogen Ur Leukocyte Esterase Urine RBC Urine WBC Ur Epithelial Cells Urine Bacteria Urine Eosinophils Ur Random Creatinine 154 Ur Random Sodium 13 11/19/16 11/19/16 11/19/16 05:08 05:09 06:00 WBC RBC Hgb Hct MCV MCH MCHC RDW Plt Count MPV Neutrophils % (Manual) Band Neutrophils % Lymphocytes % (Manual) Monocytes % (Manual) Platelet Evaluation APTT pCO2 45 pO2 61.0 L HCO3 18.4 L ABG pH 7.22 L ABG Total CO2 19.8 L ABG O2 Saturation 94.5 L ABG Base Excess -9.1 L ABG Potassium 5.0 Sodium 138.0 Chloride 106.0 Glucose 200 H Lactate 1.3 FiO2 50.0 Potassium Carbon Dioxide Anion Gap BUN Creatinine Est GFR ( Amer) Est GFR (Non-Af Amer) Random Glucose Calcium Phosphorus Magnesium Total Bilirubin AST ALT Alkaline Phosphatase Total Protein Albumin Globulin Albumin/Globulin Ratio Arterial Blood Potassium 5.0 Urine Color Yellow Urine Appearance Cloudy Urine pH 5.5 Ur Specific [place] >= 1.030 Urine Protein 100 H Urine Glucose (UA) Negative Urine Ketones Trace H Urine Blood Moderate H Urine Nitrate Negative Urine Bilirubin Small H Urine Urobilinogen 1.0 H Ur Leukocyte Esterase Moderate H Urine RBC 2 - 5 Urine WBC Tntc Ur Epithelial Cells 1 - 3 Urine Bacteria Mod Urine Eosinophils Negative Ur Random Creatinine Ur Random Sodium 11/19/16 11/19/16 11/19/16 06:15 06:15 08:00 WBC 18.7 H D RBC 2.96 L Hgb 8.6 L Hct 26.9 L MCV 90.9 MCH 29.1 MCHC 32.0 RDW 16.7 H Plt Count 160 MPV 12.2 H Neutrophils % (Manual) 84 H Band Neutrophils % 8 H Lymphocytes % (Manual) 5 L Monocytes % (Manual) 3 Platelet Evaluation Normal APTT pCO2 pO2 HCO3 ABG pH ABG Total CO2 ABG O2 Saturation ABG Base Excess ABG Potassium Sodium 138 Chloride 102 Glucose Lactate FiO2 Potassium 5.2 H Carbon Dioxide 19 L Anion Gap 22 H BUN 130 H* Creatinine 4.4 H Est GFR ( Amer) 16 Est GFR (Non-Af Amer) 13 Random Glucose 208 H Calcium 6.3 L* Phosphorus 11.0 H Magnesium 2.9 H Total Bilirubin 2.2 H AST 122 H ALT 48 Alkaline Phosphatase 100 Total Protein 5.7 L Albumin 2.5 L Globulin 3.2 Albumin/Globulin Ratio 0.8 L Arterial Blood Potassium Urine Color Urine Appearance Urine pH Ur Specific [place] Urine Protein Urine Glucose (UA) Urine Ketones Urine Blood Urine Nitrate Urine Bilirubin Urine Urobilinogen Ur Leukocyte Esterase Urine RBC Urine WBC Ur Epithelial Cells Urine Bacteria Urine Eosinophils Ur Random Creatinine Ur Random Sodium 11/19/16 15:00 WBC RBC Hgb Hct MCV MCH MCHC RDW Plt Count MPV Neutrophils % (Manual) Band Neutrophils % Lymphocytes % (Manual) Monocytes % (Manual) Platelet Evaluation APTT 56.9 H pCO2 pO2 HCO3 ABG pH ABG Total CO2 ABG O2 Saturation ABG Base Excess ABG Potassium Sodium Chloride Glucose Lactate FiO2 Potassium Carbon Dioxide Anion Gap BUN Creatinine Est GFR ( Amer) Est GFR (Non-Af Amer) Random Glucose Calcium Phosphorus Magnesium Total Bilirubin AST ALT Alkaline Phosphatase Total Protein Albumin Globulin Albumin/Globulin Ratio Arterial Blood Potassium Urine Color Urine Appearance Urine pH Ur Specific [place] Urine Protein Urine Glucose (UA) Urine Ketones Urine Blood Urine Nitrate Urine Bilirubin Urine Urobilinogen Ur Leukocyte Esterase Urine RBC Urine WBC Ur Epithelial Cells Urine Bacteria Urine Eosinophils Ur Random Creatinine Ur Random Sodium Fingerstick Blood Sugar Results: 118 Review of Systems - Review of Systems Systems not reviewed;Unavailable: Altered Mental Status Critical Care Progress Note - Ventilator Checklist PUD Prophalyxis: No DVT Prophylaxis: No - Nutrition Nutrition: Nutrition Category Date Time Status NPO Diet [DIET] Diets 11/18/16 Breakfast Ordered Assessment/Plan - Assessment and Plan (Free Text) Assessment: 76 y/o M W/ MODS ARDS Low TV strategy not clearing Co2. 8ml/kg needed and RR 32 Ph>7.2 Pao2> 60 Gram + bacteremia and Gram + UTI On Meropenum and Daptomycin . MRi Spine done today to R/O Diskitis . Prelim negative. Will need JOSEPH to r/o Endocarditis. Low EF% w/ mixed septic and cardiogenic shock on Dobutamine Currently Paralyzing on Nimbex w/ BIS monitoring w/ Propofol and Fentanyl drip RASS -3 . Mohit w/ no urine out put and would be a candidate for HD if shock improves. on Heparin drip for NSTEMI cc time 45 min
[2016-11-19] MEDS: Cisatracurium Besylate 100 MG in Sodium Chloride 0.9% 250 ML IV PRN (18:50)
[2016-11-19 19:33] LABS: CREATININE,RANDOM URINE 156 mg/dL
[2016-11-19 20:46] LABS: ARTERIAL BLOOD GAS HCO3 15.7 mmol/L (21-28); ARTERIAL BLOOD GAS O2 SAT 98.9 % (95-98); ARTERIAL BLOOD GAS PCO2 42 mm/Hg (35-45)
[2016-11-19 20:56] LABS: ARTERIAL BLOOD GAS PH 7.18 (7.35-7.45)
[2016-11-20] MEDS: White Petrolatum Ophth Oint (Puralube) OU SCH ×10 (00:36→21:22)
--- NOTE | 2016-11-20 01:42 | PN ---
DATE: SUBJECTIVE: The patient is currently seen in ICU bed 1. Patient remains paralyzed on a ventilator. He remains oliguric with worsening renal parameters. MEDICATIONS: Medication list reviewed. Patient is currently on aspirin, cisatracurium, Diprivan, Dobutrex, fentanyl, IV heparin, Tradjenta, Levophed, Meropenem, amiodarone, acetaminophen p.r.n., Protonix, artificial tears, Xopenex, and allopurinol. PHYSICAL EXAMINATION: INTAKE/OUTPUT: Intake is 4624, output 160 mL last 24 hours. VITAL SIGNS: Blood pressure 116/39, temperature is 99, pulse is 97, oxygen saturation is 96% with a respiratory rate of 30 beats per minutes. HEENT: The patient is intubated. He is unresponsive. He is paralyzed on medications as noted above. NECK: No neck vein distention. CHEST: Decreased breath sounds at the bases, bilateral rhonchi and rales. No wheezing. CARDIOVASCULAR: S1 and S2 are irregular. No audible murmurs, rubs, or gallops noted. ABDOMEN: Soft, nontender. Bowel sounds are normal. EXTREMITIES: Show significant lower extremity edema. Diminished lower extremity pulses bilaterally. LABORATORY DATA AND IMAGING: Chest CT done yesterday showed bilateral infiltrates consistent with either worsening pneumonia or pulmonary edema. Abdominal CT done earlier showed normal kidneys. MRI of the spine showed no evidence for diskitis or osteomyelitis. Labs: CBC, white blood count improved at 18.7, hemoglobin is 8.6 with a platelet count of 160,000. Coags: PTT 56.9 on IV heparin. Blood gas today: PH 7.22 with a pO2 of 61 and a pCO2 of 45 calculated. Bicarbonate is 19.8. Lactic acid is normal at 1.3. Chemistry: Sodium 138, potassium 5.2 today, chloride 102. The BUN which is now up to 130 from 47. Creatinine is up from 1.4 to 4.4. Anion gap is 22. Glucose is 208. Calcium is 6.3 with an albumin of 2.5. Phosphorus is elevated at 11.0, magnesium is 2.9, bilirubin 2.2, AST is 122. CPK is normal. Troponin levels are mildly elevated likely secondary to renal failure. Microbiology, urine is positive for Staph aureus. Blood cultures, multiple sets are positive for Staph aureus and MSSA. ASSESSMENT: Acute renal failure in the setting of sepsis, methicillin-sensitive Staphylococcus aureus bacteremia, urinary tract infection, of note his urine sodium is less than 20 with a fraction excretion of less than 1%, this goes again to the diagnosis of ATN and is more consistent with renal hypoperfusion. I will repeat his urine sodium again today. This patient has gone from a nonoliguric state to an oliguric state. His urine Michael stain was negative. No evidence for interstitial nephritis and no evidence for obstructive uropathy. Hypoxic respiratory failure. The patient remains intubated. The patient is I think paralyzed with sedatives in light of his increased respiratory rate. Possible pneumonia versus pulmonary edema with possibility of ARDS developing. Hypocalcemia with severe hypophosphatemia in the setting of acute renal failure. Mild hyperkalemia, this will likely worsen. History of spinal stenosis with degenerative disc disease without evidence of an osteomyelitis or diskitis. PLAN: 1. Discussed with ICU staff in detail. Concern here is that the patient has gone from a nonoliguric state to an oliguric state only making 160 mL of urine. Should the patient's BUN and creatinine continue to worsen, he would be a candidate for acute dialysis. ICU staff is attempting to get in touch with next of kin family members to help make decisions in light of his worsening prognosis. 2. Continue to monitor accurate I's and O's. 3. Follow labs closely. 4. All antibiotics should be dosed for a creatinine clearance of less than 15 mL per minute. 5. Continue to support the patient with pressors. 6. The patient's prognosis is extremely critical at this point in time. 7. Case discussed in detail with the ICU staff. Greater than 35 minutes spent in the care of this patient. Jairo Grant MD
[2016-11-20] MEDS: DOBUTamine 500mg/250ml D5W 500 MG/250 ML BAG IV PRN (03:34)
[2016-11-20] MEDS: Propofol 10 mg/ml 1,000 MG/100 ML VIAL IV PRN ×3 (03:37→21:25)
[2016-11-20] MEDS: Amiodarone 360 mg/D5W 200 ml 360 MG/200 ML BAG IV SCH (05:13)
[2016-11-20 06:10] LABS: HEMOGLOBIN 9.1 g/dL (14.0-18.0); MEAN CELL VOLUME 90.3 fl (80.0-105.0); MEAN CORPUSCULAR HEMOGLOBIN 29.4 pg (25.0-35.0); MEAN CORPUSCULAR HGB CONC 32.5 g/dl (31.0-37.0); MEAN PLATELET VOLUME 12.8 fl (7.0-11.0); PLATELET COUNT 174 10^3/uL (120.0-450.0); RED CELL DISTRIBUTION WIDTH 17.2 % (11.5-14.5); WHITE BLOOD COUNT 17.8 10^3/ul (4.5-11.0)
--- NOTE | 2016-11-20 06:12 | PN ---
DATE: 11/17/2016 SUBJECTIVE: Patient remains in the ICU coronary care bed 1, this Friday; he remains intubated, on life support with a multitude of problems including sepsis, urinary tract infection, pneumonia with volume overload, CHF, new AFib with a rapid ventricular rate, positive troponins for [place], urinary retention, diabetes, hypertension, new renal insufficiency with worsening renal failure. A bit of eyeglass fitter work on our part finds a nearest contact, he is Clif Cali [address], [place], [place] [address]. Home telephone number is [phone], cell phone is [phone]. I spoke with Mr. Cali today. He is a lifetime friend of Mauricio, and comes up to visit him approximately monthly when he comes to see his parents in [place]. There is no other family or friends that anyone is aware of. In a conversation with me in the past, Mauricio said that his arrangements [facility] and Clif Frankelblaze confirmed this in my conversation with him today. The best way to contact Clif Frankelblaze, patient's best and only friend and family contact is by the cell [phone]. Juwan Vaughn MD
[2016-11-20 06:24] LABS: ALB/GLOB RATIO 0.8 (1.1-1.8); ALBUMIN 2.6 g/dL (3.0-4.8)
[2016-11-20 06:27] LABS: ARTERIAL BLOOD GAS HCO3 15.6 mmol/L (21-28); ARTERIAL BLOOD GAS O2 SAT 94.3 % (95-98); ARTERIAL BLOOD GAS PCO2 48 mm/Hg (35-45); ARTERIAL BLOOD GAS TCO2 17.1 mmol.L (22-28)
[2016-11-20 06:38] LABS: ANISOCYTOSIS SLIGHT; BAND 5 % (0-2); LYMPHOCYTE 4 % (22.0-35.0); MONOCYTE 3 % (1.0-6.0); NEUTROPHIL 88 % (50.0-70.0); PLATELET ESTIMATE NORMAL (NORMAL)
[2016-11-20] MEDS: Fentanyl 1000mcg/100ml NS 1,000 MCG/100 ML BAG IV PRN ×2 (06:54→20:02)
[2016-11-20 07:01] LABS: CALCIUM 5.9 mg/dL (8.4-10.5)
[2016-11-20] MEDS: Levalbuterol 1.25 MG/3 ML Inhal Soln UD IH SCH ×3 (07:07→20:41)
[2016-11-20 07:15] LABS: ARTERIAL BLOOD GAS PH 7.12 (7.35-7.45)
[2016-11-20] MEDS: Heparin 25,000units in D5W 25,000 UNITS/250 ML BAG IV SCH (07:45)
[2016-11-20 07:59] LABS: ARTERIAL BLOOD GAS HCO3 15.6 mmol/L (21-28); ARTERIAL BLOOD GAS HEMOGLOBIN 9.1 g/dL (11.7-17.4); ARTERIAL BLOOD GAS O2 CAPACITY 12.6 mL/dl (16-24); ARTERIAL BLOOD GAS O2 CONTENT 12.6 ML/dl (15-23); ARTERIAL BLOOD GAS O2 SAT 99.8 % (95-98); ARTERIAL BLOOD GAS PCO2 38 mm/Hg (35-45); ARTERIAL BLOOD GAS PH 7.22 (7.35-7.45); ARTERIAL BLOOD GAS TCO2 16.8 mmol.L (22-28)
--- NOTE | 2016-11-20 08:00 | RAD ---
HISTORY: intub COMPARISON: 11/19/2016 FINDINGS: LUNGS: Comparison is limited by the prior amorphous limited contrast image display. Report noted. Coalescent airspace opacities right mid lung zone and left mid to lower lung zone. Coalescent pulmonary edema versus coalescent infiltrates are consistent with this. Comparison is impeded per prior image display. Suggestion of prior infiltrates likely PLEURA: Small bilateral pleural effusions. No pneumothorax CARDIOVASCULAR: Mild cardiomegaly OSSEOUS STRUCTURES: Bilateral shoulder arthrosis VISUALIZED UPPER ABDOMEN: Normal. OTHER FINDINGS: Endotracheal tube tip approximately 5 cm from the patricio below clavicles. Left internal jugular vein PICC line tip in superior vena cava IMPRESSION: Bilateral pulmonary infiltrates (versus coalescent pulmonary edema versus both). Comparison impeded - suggestion of prior similar findings nonetheless inferred. Cardiomegaly Endotracheal and left internal jugular vein PICC line as above
--- NOTE | 2016-11-20 08:01 | RAD ---
HISTORY: desat COMPARISON: 11/20/2016 516 a.m. FINDINGS: LUNGS: The bilateral coalescent pulmonary airspace opacities appear more diffuse with nearly homogeneous low-density opacification right lung. The coalescence in the inferior left hemithorax is similar nodular configuration to the patchy opacities left lung base are noted. Chest exam 11/18/2016 references bilateral infiltrates consistent with pulmonary edema and/or pneumonia PLEURA: Probable small left pleural effusion present no definite right pleural effusion on this exam suggested. No pneumothorax seen CARDIOVASCULAR: Mild cardiomegaly -similar OSSEOUS STRUCTURES: Bilateral shoulder arthrosis VISUALIZED UPPER ABDOMEN: Normal. OTHER FINDINGS: Endotracheal tube tip approximately 3.5 cm from the patricio still just below the clavicle. Left internal jugular vein PICC line tip in superior vena cava as before IMPRESSION: Worsening infiltrates especially throughout the right lung - worsening pulmonary edema suspect. Concomitant background infiltrates also likely
[2016-11-20] MEDS: Nafcillin 2 GM in Sodium Chloride 0.9% 100 ML IVPB SCH ×4 (08:16→21:20)
[2016-11-20] MEDS: Insulin Reg-MEDIUM-Coverage SC SCH ×4 (08:29→17:41)
[2016-11-20] MEDS ORDERED: Amiodarone 360 mg/D5W 200 ml 360 MG/200 ML BAG IV SCH (09:30)
[2016-11-20 09:41] VITALS: RESP 14
[2016-11-20] MEDS: Linezolid 600 mg in D5W 300 ml 600 MG/300 ML BAG IVPB SCH ×2 (09:48→21:23)
[2016-11-20] MEDS: Meropenem 500 MG in Sodium Chloride 0.9% 100 ML IVPB SCH ×2 (09:50→21:21)
[2016-11-20] MEDS: TRADJENTA 5MG PO SCH (10:18)
[2016-11-20] MEDS: Cisatracurium Besylate 100 MG in Sodium Chloride 0.9% 250 ML IV PRN (10:30)
[2016-11-20] MEDS ORDERED: Sodium Bicarbonate (8.4%) 50 Meq Syringe IVP ONE (10:30)
--- NOTE | 2016-11-20 11:11 | RAD ---
HISTORY: Oral gastric tube placement COMPARISON: 11/20/2016 at 7:26 a.m. FINDINGS: LUNGS: The prior diffuse coalescing airspace opacities throughout the right hemithorax show some diffuse partial clearing. There is less dense coalescent nodular airspace opacities in the left mid to lower lung zone. Diffuse mild increased improved aeration throughout the left lung is also suggested. In each lung a significant residual interstitial and mild airspace pathology is inferred. PLEURA: No significant pleural effusion identified, no pneumothorax apparent. CARDIOVASCULAR: Normal. OSSEOUS STRUCTURES: No significant abnormalities. VISUALIZED UPPER ABDOMEN: Normal. OTHER FINDINGS: Endotracheal tube tip approximately 3.5 cm from the patricio. Left internal jugular vein central catheter with tip in superior vena cava -not significantly changed Rightward rotation of the chest. Minimal asymmetrical elevation of the right hemidiaphragm. IMPRESSION: Although persistent diffuse interstitial and a diffuse coalescing airspace process is inferred. Since the prior exam interval improved bilateral aeration throughout both lungs has occurred. No worsening infiltrates are worsening edema suggested. No interval effusions. Endotracheal tube tip in good position. Left internal jugular vein catheter tip at superior vena cava not significantly changed. No pneumothorax.
--- NOTE | 2016-11-20 11:27 | PN ---
DATE: 11/20/2016 SUBJECTIVE: The patient remains on a ventilator. PHYSICAL EXAMINATION VITAL SIGNS: Blood pressure is 125/54, on IV pressors, heart rate is tachycardic, is a wide complex tachycardia at 120. NECK: Negative JVD. LUNGS: Decreased breath sounds. HEART: Reveal S1, S2. EXTREMITIES: Without change. LABORATORY DATA: BUN and creatinine 153/5.4. The potassium is 5.8, hemoglobin is 9.1, white count is down to 17. IV Adenocard was given, which showed underlying rhythm of atrial fibrillation. IMPRESSION: 1. Sepsis. 2. Respiratory failure. 3. Shock. 4. Dilated cardiomyopathy. 5. Renal insufficiency. 6. Anemia. Given these findings, we will add low-dose beta blockers to the regimen to help slow his heart rate. In addition, the patient will very likely need dialysis. Antonio Stewart MD
[2016-11-20] MEDS ORDERED: Insulin Reg-MEDIUM-Coverage SC SCH (11:30)
--- NOTE | 2016-11-20 11:57 | CP.PCM.PN ---
<TENZIN ESTRADA - Last Filed: 11/20/16 13:11> Subjective - Date & Time of Evaluation Date of Evaluation: 11/20/16 Time of Evaluation: 07:30 - Subjective Subjective: Tenzin Estrada DO PGY1 - ICU Progress Note Patient seen and examined at bedside. Nurse reports several instances of wide complex tachycardia overnight, as well as only 100cc urine output. This morning , patient is in persistent wide complex tachycardia. Also, this morning, had an episode of hypoxia desatured down to 70's, on PRVC 50%/30/8/470. Pulse ox replaced, suctioned airway, repositioned patient, with no improvement. Vent settings ultimately adjusted to 100%/35/10/470 before improvement noted. Repeat CXR showed no changes since the prior CXR this morning. Repeat ABG showed some improvement in acid/base status, improved hypoxia, and decreased pCO2. Still unable to contact family to revisit code status. Objective - Vital Signs/Intake and Output Vital Signs (last 24 hours): Temp Pulse Resp BP Pulse Ox 97.7 F 85 14 108/45 L 98 11/20/16 11:40 11/20/16 11:40 11/20/16 09:41 11/20/16 11:31 11/20/16 11:40 Intake and Output: 11/20/16 11/20/16 06:59 18:59 Intake Total 1819 569.4 Output Total 100 Balance 1719 569.4 - Medications Medications: Current Medications Allopurinol (Zyloprim) 300 mg PO DAILY [facility] Last Admin: 11/20/16 09:52 Dose: 300 mg Artificial Tears (Puralube Opht Oint) 1 appl OU Q2 [facility] Last Admin: 11/20/16 04:33 Dose: 1 applic Aspirin (Aspirin Supp) 300 mg RC DAILY [facility] Last Admin: 11/20/16 09:51 Dose: 300 mg Home Med (Home Med) 1 unit PO DAILY [facility] Last Admin: 11/20/16 10:18 Dose: Not Given Heparin Sodium/Dextrose (Heparin 25,000 Units/250ml In D5w) 25,000 units in 250 mls @ 8.459 mls/hr IV .Q24H ELIS; 12 UNITS/KG/HR PRN Reason: Protocol Last Admin: 11/20/16 07:45 Dose: 16 units/kg/hr, 11.278 mls/hr Fentanyl Citrate (Fentanyl Citrate/Sodium Chloride 1 Mg/100 Ml) 1,000 mcg in 100 mls @ 2 mls/hr IV .Q24H PRN; Protocol; 20 MCG/HR PRN Reason: TITRATE PER MD ORDER Last Admin: 11/20/16 06:54 Dose: 100 mcg/hr, 10 mls/hr Cefazolin Sodium 2 gm/ Sodium (Chloride) 100 mls @ 200 mls/hr IVPB Q12 [facility]IS PRN Reason: Protocol Last Admin: 11/18/16 21:32 Dose: 200 mls/hr Meropenem 500 mg/ Sodium (Chloride) 100 mls @ 100 mls/hr IVPB Q12 [facility]IS PRN Reason: Protocol Stop: 11/25/16 10:01 Last Admin: 11/20/16 09:50 Dose: 100 mls/hr Propofol (Diprivan) 1,000 mg in 100 mls @ 2.183 mls/hr IV .Q24H PRN; Protocol; 5 MCG/KG/MIN PRN Reason: TITRATE PER MD ORDER Last Admin: 11/20/16 11:17 Dose: 24.96 mcg/kg/min, 10.9 mls/hr Cisatracurium Besylate 100 mg/ (Sodium Chloride) 260 mls @ 17.02 mls/hr IV .[id number] PRN; 1.5 MCG/KG/MIN PRN Reason: TITRATE PER MD ORDER Last Admin: 11/20/16 10:30 Dose: 17.02 mls/hr Acetaminophen (Ofirmev) 1,000 mg in 100 mls @ 400 mls/hr IVPB Q6H PRN PRN Reason: Temperature Stop: 11/20/16 19:57 Last Admin: 11/19/16 08:01 Dose: 400 mls/hr Norepinephrine Bitartrate 8 mg (/ Sodium Chloride) 258 mls @ 38.7 mls/hr IV .Q6H40M PRN; Protocol; 20 MCG/MIN PRN Reason: TITRATE PER MD ORDER Last Titration: 11/20/16 07:31 Dose: 16 mcg/min, 30.96 mls/hr Nafcillin Sodium 2 gm/ Sodium (Chloride) 100 mls @ 100 mls/hr IVPB Q4 ELIS PRN Reason: Protocol Last Admin: 11/20/16 08:16 Dose: 100 mls/hr Linezolid (Zyvox 600mg/300ml D5w) 600 mg in 300 mls @ 200 mls/hr IVPB Q12 [facility] PRN Reason: Protocol Stop: 11/27/16 10:01 Last Admin: 11/20/16 09:48 Dose: 200 mls/hr Amiodarone HCl/Dextrose (Nexterone 360 Mg In D5w 200 Ml (Premix)) 360 mg in 200 mls @ 16.667 mls/hr IV .Q12H ELIS; 0.5 MG/MIN PRN Reason: Protocol Insulin Human Regular (Humulin R Med) 0 units SC ACHS [facility] PRN Reason: Protocol Last Admin: 11/20/16 08:29 Dose: 5 units Levalbuterol HCl (Xopenex) 1.25 mg IH TIDRESP [facility] Last Admin: 11/20/16 07:07 Dose: 1.25 mg Pantoprazole Sodium (Protonix Inj) 40 mg IVP DAILY [facility] Last Admin: 11/20/16 09:50 Dose: 40 mg - Labs Labs: 11/20/16 05:30 11/20/16 05:30 PT 13.4 Seconds (9.9-11.8) H 11/16/16 13:00 INR 1.24 (0.93-1.08) H 11/16/16 13:00 APTT 52.8 Seconds (23.7-30.8) H 11/20/16 07:50 - Constitutional Appears: Other (Intubated, sedated) - Head Exam Head Exam: ATRAUMATIC, NORMOCEPHALIC - Eye Exam Eye Exam: PERRL - ENT Exam ENT Exam: Mucous Membranes Moist Additional comments: Intubated - Neck Exam Neck Exam: absent: Lymphadenopathy, Thyromegaly - Respiratory Exam Respiratory Exam: Rales, Rhonchi Additional comments: Intubated, PRVC 70%/10/35/470 - Cardiovascular Exam Cardiovascular Exam: RRR, +S1, +S2 - GI/Abdominal Exam GI & Abdominal Exam: Soft. absent: Distended, Firm, Guarding, Rigid - Extremities Exam Extremities Exam: Pedal Edema. absent: Calf Tenderness - Neurological Exam Additional comments: Sedated and paralyzed on propofol and nimbex - Skin Skin Exam: Dry, Intact Assessment and Plan - Assessment and Plan (Free Text) Assessment: 76yo male with history of HTN, DM2, HLD, COPD, asthma admitted to the ICU with ventilator dependent acute mixed hypoxemic hypercapnic respiratory failure, bilateral pulmonary infiltrates, NSTEMI, sepsis with positive BCx likely 2/2 endocarditis. Plan: Neuro: - Patient intubated, sedated and paralyzed on propofol, fentanyl and nimbex on PRVC per [facility] Protocol, will maintain sedation and paralysis for ventilatory compliance/synchrony - Maintain normothermia Cardio: - Wide complex tachycardia overnight, diagnostic administration of adenosine elucidates likely SVT with aberrancy - Digitalis level elevated, likely contributing to SVT, will stop amiodarone - Troponin elevated likely secondary to NSTEMI; Patient on heparin drip per cardio, continue ASA - Patient continues to require vasopressors and inotropic support, on levophed 20, holding dobutamine - After ruling out discitis, endocarditis is most likely source of sepsis, will need JOSEPH to confirm or r/o diagnosis - Echo reviewed, shows LVEF 28%, in setting of likely mixed septic and cardiogenic profound shock - Will continue to monitor hemodynamic stability with goal MAP > 65 Pulm: - Patient with acute mixed hypoxemic hypercapnic respiratory failure, currently intubated - Hypoxia improved slightly after episode of desaturation this morning. Acid/ base status improving slowly, erratically - Will continue with PRVC, and titrate settings to maintain PaO2>60, pH 7.4, and permissive hypercapnea - ABG's reviewed; significant for continuing metabolic acidosis, with compensatory ventilator induced respiratory alkalosis, continue trending ABG - CXR reviewed and revealed persistent bilateral pulmonary infiltrates possibly secondary to ARDS vs pulmonary edema Renal: - Persistently elevated BUN and Cr, worsening oliguric renal failure, likely ATN in the setting of profound shock - Hyperkalemia in the setting of metabolic acidosis and oliguric renal failure, started SSI, will recheck BMP - Will benefit from HD when no longer in shock - Monitor and replete lytes as needed GI: - OG tube placed - Will start enteral feeds - Protonix for Ppx Endo: - Was previously euglycemic without insulin coverage, but has become hyperglycemic - Accucheck Q6, SSI med - Maintain euglycemia Heme: - No overt signs of bleeding - Will continue to monitor H/H - DVT prophylaxis covered by heparin ID: - Patient with persistent leukocytosis and positive BCx x4 despite broad spectrum antibiotics - Presently afebrile - Blood and urine cultures notable for staph aureus, repeat BCx positive for gram positive cocci in clusters - On merrem and ancef, added zyvox and nafcillin - MRI of T-spine and L-spine to negative for diskitis. Will require JOSEPH to r/o or confirm endocarditis Patient seen, reviewed, examined and discussed with attending physician <Alla Young MD - Last Filed: 11/20/16 15:09> Objective - Vital Signs/Intake and Output Vital Signs (last 24 hours): Temp Pulse Resp BP Pulse Ox 97.7 F 90 14 108/45 L 98 11/20/16 11:40 11/20/16 12:36 11/20/16 09:41 11/20/16 11:31 11/20/16 11:40 Intake and Output: 11/20/16 11/20/16 06:59 18:59 Intake Total 1819 608.0 Output Total 100 Balance 1719 608.0 - Medications Medications: Current Medications Allopurinol (Zyloprim) 300 mg PO DAILY [facility] Last Admin: 11/20/16 09:52 Dose: 300 mg Artificial Tears (Puralube Opht Oint) 1 appl OU Q2 [facility] Last Admin: 11/20/16 13:05 Dose: 1 applic Aspirin (Aspirin Supp) 300 mg RC DAILY [facility] Last Admin: 11/20/16 09:51 Dose: 300 mg Home Med (Home Med) 1 unit PO DAILY [facility] Last Admin: 11/20/16 10:18 Dose: Not Given Heparin Sodium/Dextrose (Heparin 25,000 Units/250ml In D5w) 25,000 units in 250 mls @ 8.459 mls/hr IV .Q24H [facility]IS; 12 UNITS/KG/HR PRN Reason: Protocol Last Admin: 11/20/16 07:45 Dose: 16 units/kg/hr, 11.278 mls/hr Fentanyl Citrate (Fentanyl Citrate/Sodium Chloride 1 Mg/100 Ml) 1,000 mcg in 100 mls @ 2 mls/hr IV .Q24H PRN; Protocol; 20 MCG/HR PRN Reason: TITRATE PER MD ORDER Last Admin: 11/20/16 06:54 Dose: 100 mcg/hr, 10 mls/hr Cefazolin Sodium 2 gm/ Sodium (Chloride) 100 mls @ 200 mls/hr IVPB Q12 [facility] PRN Reason: Protocol Last Admin: 11/18/16 21:32 Dose: 200 mls/hr Meropenem 500 mg/ Sodium (Chloride) 100 mls @ 100 mls/hr IVPB Q12 [facility] PRN Reason: Protocol Stop: 11/25/16 10:01 Last Admin: 11/20/16 09:50 Dose: 100 mls/hr Propofol (Diprivan) 1,000 mg in 100 mls @ 2.183 mls/hr IV .Q24H PRN; Protocol; 5 MCG/KG/MIN PRN Reason: TITRATE PER MD ORDER Last Admin: 11/20/16 11:17 Dose: 24.96 mcg/kg/min, 10.9 mls/hr Cisatracurium Besylate 100 mg/ (Sodium Chloride) 260 mls @ 17.02 mls/hr IV .[id number] PRN; 1.5 MCG/KG/MIN PRN Reason: TITRATE PER MD ORDER Last Admin: 11/20/16 10:30 Dose: 17.02 mls/hr Acetaminophen (Ofirmev) 1,000 mg in 100 mls @ 400 mls/hr IVPB Q6H PRN PRN Reason: Temperature Stop: 11/20/16 19:57 Last Admin: 11/19/16 08:01 Dose: 400 mls/hr Norepinephrine Bitartrate 8 mg (/ Sodium Chloride) 258 mls @ 38.7 mls/hr IV .Q6H40M PRN; Protocol; 20 MCG/MIN PRN Reason: TITRATE PER MD ORDER Last Admin: 11/20/16 13:18 Dose: 20 mcg/min, 38.7 mls/hr Nafcillin Sodium 2 gm/ Sodium (Chloride) 100 mls @ 100 mls/hr IVPB Q4 [facility] PRN Reason: Protocol Last Admin: 11/20/16 13:02 Dose: 100 mls/hr Linezolid (Zyvox 600mg/300ml D5w) 600 mg in 300 mls @ 200 mls/hr IVPB Q12 [facility] PRN Reason: Protocol Stop: 11/27/16 10:01 Last Admin: 11/20/16 09:48 Dose: 200 mls/hr Calcium Gluconate 1,000 mg/ (Sodium Chloride) 110 mls @ 110 mls/hr IVPB ONCE ONE Stop: 11/20/16 15:55 Insulin Human Regular (Humulin R Med) 0 units SC ACHS [facility] PRN Reason: Protocol Last Admin: 11/20/16 14:12 Dose: 5 units Levalbuterol HCl (Xopenex) 1.25 mg IH TIDRESP [facility] Last Admin: 11/20/16 13:27 Dose: 1.25 mg Pantoprazole Sodium (Protonix Inj) 40 mg IVP DAILY [facility] Last Admin: 11/20/16 09:50 Dose: 40 mg - Labs Labs: 11/20/16 05:30 11/20/16 13:30 PT 13.4 Seconds (9.9-11.8) H 11/16/16 13:00 INR 1.24 (0.93-1.08) H 11/16/16 13:00 APTT 52.8 Seconds (23.7-30.8) H 11/20/16 07:50 Attending/Attestation - Attestation I have personally seen and examined this patient.: Yes I have fully participated in the care of the patient.: Yes I have reviewed all pertinent clinical information, including history, physical exam and plan: Yes Notes (Text): 11/20/16 15:06 76 y/o M w/ ARDS Hypoxemic respiratory failure MODS LEMUEL Hypercarbic respiratory failure Likely Endocarditis w/ MSSA bacteremia Continue w/ Nimbex to keep PH and prevent ventilation mismatch PH > 7.2 PAO2> 60 ARDS NET 8ml/kg due to CO2 elevation and inability to manage PH Continue abx for MSSA w/ ID following, source controll not achieved., Will Need JOSEPH but not a candidate for valve surgery. Septic shock on Levophed to keep MAP>65. Poor prognosis. family not able to be contacted. Palliative care on board. Low EF CHF. cc time 65 min
[2016-11-20 14:03] LABS: ARTERIAL BLOOD GAS HCO3 14.9 mmol/L (21-28); ARTERIAL BLOOD GAS HEMOGLOBIN 9.2 g/dL (11.7-17.4); ARTERIAL BLOOD GAS PCO2 38 mm/Hg (35-45); ARTERIAL BLOOD GAS TCO2 16.1 mmol.L (22-28)
--- NOTE | 2016-11-20 14:49 | CP.PCM.PN ---
Subjective - Date & Time of Evaluation Date of Evaluation: 11/20/16 Time of Evaluation: 13:00 - Subjective Subjective: Sedated, intubated. No acute changes Objective - Vital Signs/Intake and Output Vital Signs (last 24 hours): Temp Pulse Resp BP Pulse Ox 97.7 F 90 14 108/45 L 98 11/20/16 11:40 11/20/16 12:36 11/20/16 09:41 11/20/16 11:31 11/20/16 11:40 Intake and Output: 11/20/16 11/20/16 06:59 18:59 Intake Total 1819 608.0 Output Total 100 Balance 1719 608.0 - Medications Medications: Current Medications Allopurinol (Zyloprim) 300 mg PO DAILY [facility] Last Admin: 11/20/16 09:52 Dose: 300 mg Artificial Tears (Puralube Opht Oint) 1 appl OU Q2 [facility] Last Admin: 11/20/16 13:05 Dose: 1 applic Aspirin (Aspirin Supp) 300 mg RC DAILY [facility] Last Admin: 11/20/16 09:51 Dose: 300 mg Home Med (Home Med) 1 unit PO DAILY [facility] Last Admin: 11/20/16 10:18 Dose: Not Given Heparin Sodium/Dextrose (Heparin 25,000 Units/250ml In D5w) 25,000 units in 250 mls @ 8.459 mls/hr IV .Q24H [facility]IS; 12 UNITS/KG/HR PRN Reason: Protocol Last Admin: 11/20/16 07:45 Dose: 16 units/kg/hr, 11.278 mls/hr Fentanyl Citrate (Fentanyl Citrate/Sodium Chloride 1 Mg/100 Ml) 1,000 mcg in 100 mls @ 2 mls/hr IV .Q24H PRN; Protocol; 20 MCG/HR PRN Reason: TITRATE PER MD ORDER Last Admin: 11/20/16 06:54 Dose: 100 mcg/hr, 10 mls/hr Cefazolin Sodium 2 gm/ Sodium (Chloride) 100 mls @ 200 mls/hr IVPB Q12 [facility] PRN Reason: Protocol Last Admin: 11/18/16 21:32 Dose: 200 mls/hr Meropenem 500 mg/ Sodium (Chloride) 100 mls @ 100 mls/hr IVPB Q12 [facility] PRN Reason: Protocol Stop: 11/25/16 10:01 Last Admin: 11/20/16 09:50 Dose: 100 mls/hr Propofol (Diprivan) 1,000 mg in 100 mls @ 2.183 mls/hr IV .Q24H PRN; Protocol; 5 MCG/KG/MIN PRN Reason: TITRATE PER MD ORDER Last Admin: 11/20/16 11:17 Dose: 24.96 mcg/kg/min, 10.9 mls/hr Cisatracurium Besylate 100 mg/ (Sodium Chloride) 260 mls @ 17.02 mls/hr IV .[id number] PRN; 1.5 MCG/KG/MIN PRN Reason: TITRATE PER MD ORDER Last Admin: 11/20/16 10:30 Dose: 17.02 mls/hr Acetaminophen (Ofirmev) 1,000 mg in 100 mls @ 400 mls/hr IVPB Q6H PRN PRN Reason: Temperature Stop: 11/20/16 19:57 Last Admin: 11/19/16 08:01 Dose: 400 mls/hr Norepinephrine Bitartrate 8 mg (/ Sodium Chloride) 258 mls @ 38.7 mls/hr IV .Q6H40M PRN; Protocol; 20 MCG/MIN PRN Reason: TITRATE PER MD ORDER Last Admin: 11/20/16 13:18 Dose: 20 mcg/min, 38.7 mls/hr Nafcillin Sodium 2 gm/ Sodium (Chloride) 100 mls @ 100 mls/hr IVPB Q4 [facility] PRN Reason: Protocol Last Admin: 11/20/16 13:02 Dose: 100 mls/hr Linezolid (Zyvox 600mg/300ml D5w) 600 mg in 300 mls @ 200 mls/hr IVPB Q12 [facility] PRN Reason: Protocol Stop: 11/27/16 10:01 Last Admin: 11/20/16 09:48 Dose: 200 mls/hr Insulin Human Regular (Humulin R Med) 0 units SC ACHS [facility] PRN Reason: Protocol Last Admin: 11/20/16 08:29 Dose: 5 units Levalbuterol HCl (Xopenex) 1.25 mg IH TIDRESP [facility] Last Admin: 11/20/16 13:27 Dose: 1.25 mg Pantoprazole Sodium (Protonix Inj) 40 mg IVP DAILY [facility] Last Admin: 11/20/16 09:50 Dose: 40 mg - Labs Labs: 11/20/16 05:30 11/20/16 05:30 PT 13.4 Seconds (9.9-11.8) H 11/16/16 13:00 INR 1.24 (0.93-1.08) H 11/16/16 13:00 APTT 52.8 Seconds (23.7-30.8) H 11/20/16 07:50 - Constitutional Appears: Chronically Ill - Eye Exam Eye Exam: Normal appearance, PERRL - ENT Exam ENT Exam: Mucous Membranes Moist - Respiratory Exam Respiratory Exam: Decreased Breath Sounds, NORMAL BREATHING PATTERN - Cardiovascular Exam Cardiovascular Exam: Tachycardia, Irregular Rhythm, +S1, +S2 - GI/Abdominal Exam GI & Abdominal Exam: Soft, Diminished Bowel Sounds - Extremities Exam Extremities Exam: Pedal Edema - Neurological Exam Additional comments: sedated - Skin Skin Exam: Dry, Pallor Assessment and Plan - Assessment and Plan (Free Text) Assessment: 76 year old male with history of who is admitted with sepsis,pneumonia, multiorgan failure. As per Dr Manasa Vargas note, there is no immediate family. There is a lifelong friend, Clif Cali who occasionally visits Mr Moss. Manasa STEWART contacted Mr Cali who states is willing to assume health surrogate responsibility. I spoke with Mr. Cali who confirms the patient has no other family members. Mr Salazar also affirms that the patient would not want to be resuscitated if his condition worsens. He is requesting that the patient be made DNR status. I contacted Dr. Manasa Triana and made him aware of my discussion with Mr Cali. Dr.T Vega is in agreement with making Mr. Moss DNR Plan: DNR
[2016-11-20 14:58] LABS: CALCIUM 5.7 mg/dL (8.4-10.5)
--- NOTE | 2016-11-20 15:07 | CP.PCM.PN ---
Subjective - Date & Time of Evaluation Date of Evaluation: 11/20/16 Time of Evaluation: 09:10 - Subjective Subjective: Continues to be on the ventilator, had low grade fevers overnight, sedated and paralyzed. Objective - Vital Signs/Intake and Output Vital Signs (last 24 hours): Temp Pulse Resp BP Pulse Ox 99.5 F 99 H 30 H 125/54 L 77 L 11/20/16 06:40 11/20/16 06:40 11/19/16 07:26 11/20/16 06:30 11/20/16 06:40 Intake and Output: 11/19/16 11/20/16 18:59 06:59 Intake Total 1300 1819 Output Total 150 100 Balance 1150 1719 - Medications Medications: Current Medications Allopurinol (Zyloprim) 300 mg PO DAILY [facility] Last Admin: 11/19/16 09:26 Dose: Not Given Artificial Tears (Puralube Opht Oint) 1 appl OU Q2 [facility] Last Admin: 11/20/16 04:33 Dose: 1 applic Aspirin (Aspirin Supp) 300 mg RC DAILY [facility] Last Admin: 11/19/16 12:26 Dose: 300 mg Home Med (Home Med) 1 unit PO DAILY [facility] Last Admin: 11/19/16 09:25 Dose: Not Given Heparin Sodium/Dextrose (Heparin 25,000 Units/250ml In D5w) 25,000 units in 250 mls @ 8.459 mls/hr IV .Q24H [facility]; 12 UNITS/KG/HR PRN Reason: Protocol Last Admin: 11/19/16 11:29 Dose: 16 units/kg/hr, 11.278 mls/hr Fentanyl Citrate (Fentanyl Citrate/Sodium Chloride 1 Mg/100 Ml) 1,000 mcg in 100 mls @ 2 mls/hr IV .Q24H PRN; Protocol; 20 MCG/HR PRN Reason: TITRATE PER MD ORDER Last Admin: 11/20/16 06:54 Dose: 100 mcg/hr, 10 mls/hr Dobutamine HCl/Dextrose (Dobutamine/Dextrose 5% 500mg/250ml) 500 mg in 250 mls @ 10.573 mls/hr IV .[id number] PRN; Protocol; 5 MCG/KG/MIN PRN Reason: TITRATE PER PROTOCOL Last Admin: 11/20/16 03:34 Dose: 10.573 mls/hr Cefazolin Sodium 2 gm/ Sodium (Chloride) 100 mls @ 200 mls/hr IVPB Q12 [facility] PRN Reason: Protocol Last Admin: 11/18/16 21:32 Dose: 200 mls/hr Meropenem 500 mg/ Sodium (Chloride) 100 mls @ 100 mls/hr IVPB Q12 [facility] PRN Reason: Protocol Stop: 11/25/16 10:01 Last Admin: 11/19/16 21:43 Dose: 100 mls/hr Propofol (Diprivan) 1,000 mg in 100 mls @ 2.183 mls/hr IV .Q24H PRN; Protocol; 5 MCG/KG/MIN PRN Reason: TITRATE PER MD ORDER Last Admin: 11/20/16 03:37 Dose: 25 mcg/kg/min, 10.913 mls/hr Cisatracurium Besylate 100 mg/ (Sodium Chloride) 260 mls @ 17.02 mls/hr IV .[id number] PRN; 1.5 MCG/KG/MIN PRN Reason: TITRATE PER MD ORDER Last Admin: 11/19/16 18:50 Dose: 17.02 mls/hr Acetaminophen (Ofirmev) 1,000 mg in 100 mls @ 400 mls/hr IVPB Q6H PRN PRN Reason: Temperature Stop: 11/20/16 19:57 Last Admin: 11/19/16 08:01 Dose: 400 mls/hr Amiodarone HCl/Dextrose (Nexterone 360 Mg In D5w 200 Ml (Premix)) 360 mg in 200 mls @ 16.667 mls/hr IV .Q12H [facility]IS; 0.5 MG/MIN PRN Reason: Protocol Last Admin: 11/20/16 05:13 Dose: 16.667 mls/hr Norepinephrine Bitartrate 8 mg (/ Sodium Chloride) 258 mls @ 38.7 mls/hr IV .Q6H40M PRN; Protocol; 20 MCG/MIN PRN Reason: TITRATE PER MD ORDER Last Admin: 11/20/16 04:51 Dose: 20 mcg/min, 38.7 mls/hr Nafcillin Sodium 2 gm/ Sodium (Chloride) 100 mls @ 100 mls/hr IVPB Q4 [facility] PRN Reason: Protocol Levalbuterol HCl (Xopenex) 1.25 mg IH TIDRESP [facility] Last Admin: 11/19/16 20:05 Dose: 1.25 mg Pantoprazole Sodium (Protonix Inj) 40 mg IVP DAILY [facility] Last Admin: 11/19/16 12:27 Dose: 40 mg - Labs Labs: 11/20/16 05:30 11/19/16 06:15 PT 13.4 Seconds (9.9-11.8) H 11/16/16 13:00 INR 1.24 (0.93-1.08) H 11/16/16 13:00 APTT 56.9 Seconds (23.7-30.8) H 11/19/16 15:00 - Constitutional Appears: Other (Intubated, sedated, paralyzed) - Head Exam Head Exam: NORMAL INSPECTION - ENT Exam Additional comments: ET tube in place - Neck Exam Neck Exam: absent: Meningismus Additional comments: left IJ central venous catheter in place - Respiratory Exam Respiratory Exam: Decreased Breath Sounds - Cardiovascular Exam Cardiovascular Exam: +S1, +S2 - GI/Abdominal Exam GI & Abdominal Exam: Soft. absent: Tenderness Assessment and Plan - Assessment and Plan (Free Text) Plan: Assessment septic and cardiogenic shock with acute on chronic renal failure now with ventilator-dependent respiratory failure with persistent methicillin-sensitive Staph aureus bacteremia, source to be determined; no discitis or osteomyelitis of the thoracic or lumbar vertebrae noted, but need to R/O endocarditis; MSSA in the urine probably spillage from the blood acute decompensated heart failure now with ARDS, cannot rule out superimposed pneumonia vs. pulmonary fibrosis arthritis gout DM acute on chronic renal failure Plan has been given a dose of IV Vancomycin and Cefepime and Doxycycline on admission then switched to Cefazolin - now we have the patient on Merrem and switched Cefazolin to Nafcillin and gave another dose of IV Vancomycin yesteday ; Vanco level today is 25.5 - renal function is worsening follow up repeat blood cx from yesterday MRI of the thoracic and lumbar spines did not show discitis or osteomyelitis; MRI brain showed possible thalamus lesion and cannot exclude septic emboli Recommend JOSEPH when feasible Follow up further Cardiology recommendations (patient currently on Dobutamine and Norepinephrine) Patient continue to be in critical condition Overall prognosis is poor Discussed with Hector (ICU merchandise support associate) and ICU team
--- NOTE | 2016-11-20 15:12 | CP.PCM.PN ---
Subjective - Date & Time of Evaluation Date of Evaluation: 11/20/16 Time of Evaluation: 07:30 - Subjective Subjective: Tenzin Estrada DO PGY1 - ICU Progress Note Patient seen and examined at bedside. Nurses report that patient had some weakness, difficulty moving whenever trying to clean or reposition him. Continues to be slightly confused, lethargic, slow responses. AAOx2. He denies any CP, SOB, abdominal pain, n/v/d. Objective - Vital Signs/Intake and Output Vital Signs (last 24 hours): Temp Pulse Resp BP Pulse Ox 97.7 F 90 14 108/45 L 98 11/20/16 11:40 11/20/16 12:36 11/20/16 09:41 11/20/16 11:31 11/20/16 11:40 Intake and Output: 11/20/16 11/20/16 06:59 18:59 Intake Total 1819 608.0 Output Total 100 Balance 1719 608.0 - Medications Medications: Current Medications Allopurinol (Zyloprim) 300 mg PO DAILY [facility] Last Admin: 11/20/16 09:52 Dose: 300 mg Artificial Tears (Puralube Opht Oint) 1 appl OU Q2 [facility] Last Admin: 11/20/16 13:05 Dose: 1 applic Aspirin (Aspirin Supp) 300 mg RC DAILY [facility] Last Admin: 11/20/16 09:51 Dose: 300 mg Home Med (Home Med) 1 unit PO DAILY [facility] Last Admin: 11/20/16 10:18 Dose: Not Given Heparin Sodium/Dextrose (Heparin 25,000 Units/250ml In D5w) 25,000 units in 250 mls @ 8.459 mls/hr IV .Q24H [facility]; 12 UNITS/KG/HR PRN Reason: Protocol Last Admin: 11/20/16 07:45 Dose: 16 units/kg/hr, 11.278 mls/hr Fentanyl Citrate (Fentanyl Citrate/Sodium Chloride 1 Mg/100 Ml) 1,000 mcg in 100 mls @ 2 mls/hr IV .Q24H PRN; Protocol; 20 MCG/HR PRN Reason: TITRATE PER MD ORDER Last Admin: 11/20/16 06:54 Dose: 100 mcg/hr, 10 mls/hr Cefazolin Sodium 2 gm/ Sodium (Chloride) 100 mls @ 200 mls/hr IVPB Q12 [facility] PRN Reason: Protocol Last Admin: 11/18/16 21:32 Dose: 200 mls/hr Meropenem 500 mg/ Sodium (Chloride) 100 mls @ 100 mls/hr IVPB Q12 [facility] PRN Reason: Protocol Stop: 11/25/16 10:01 Last Admin: 11/20/16 09:50 Dose: 100 mls/hr Propofol (Diprivan) 1,000 mg in 100 mls @ 2.183 mls/hr IV .Q24H PRN; Protocol; 5 MCG/KG/MIN PRN Reason: TITRATE PER MD ORDER Last Admin: 11/20/16 11:17 Dose: 24.96 mcg/kg/min, 10.9 mls/hr Cisatracurium Besylate 100 mg/ (Sodium Chloride) 260 mls @ 17.02 mls/hr IV .[id number] PRN; 1.5 MCG/KG/MIN PRN Reason: TITRATE PER MD ORDER Last Admin: 11/20/16 10:30 Dose: 17.02 mls/hr Acetaminophen (Ofirmev) 1,000 mg in 100 mls @ 400 mls/hr IVPB Q6H PRN PRN Reason: Temperature Stop: 11/20/16 19:57 Last Admin: 11/19/16 08:01 Dose: 400 mls/hr Norepinephrine Bitartrate 8 mg (/ Sodium Chloride) 258 mls @ 38.7 mls/hr IV .Q6H40M PRN; Protocol; 20 MCG/MIN PRN Reason: TITRATE PER MD ORDER Last Admin: 11/20/16 13:18 Dose: 20 mcg/min, 38.7 mls/hr Nafcillin Sodium 2 gm/ Sodium (Chloride) 100 mls @ 100 mls/hr IVPB Q4 [facility] PRN Reason: Protocol Last Admin: 11/20/16 15:05 Dose: 100 mls/hr Linezolid (Zyvox 600mg/300ml D5w) 600 mg in 300 mls @ 200 mls/hr IVPB Q12 [facility] PRN Reason: Protocol Stop: 11/27/16 10:01 Last Admin: 11/20/16 09:48 Dose: 200 mls/hr Calcium Gluconate 1,000 mg/ (Sodium Chloride) 110 mls @ 110 mls/hr IVPB ONCE ONE Stop: 11/20/16 15:55 Insulin Human Regular (Humulin R Med) 0 units SC ACHS [facility] PRN Reason: Protocol Last Admin: 11/20/16 14:12 Dose: 5 units Levalbuterol HCl (Xopenex) 1.25 mg IH TIDRESP [facility] Last Admin: 11/20/16 13:27 Dose: 1.25 mg Pantoprazole Sodium (Protonix Inj) 40 mg IVP DAILY [facility] Last Admin: 11/20/16 09:50 Dose: 40 mg - Labs Labs: 11/20/16 05:30 11/20/16 13:30 PT 13.4 Seconds (9.9-11.8) H 11/16/16 13:00 INR 1.24 (0.93-1.08) H 11/16/16 13:00 APTT 52.8 Seconds (23.7-30.8) H 11/20/16 07:50 - Constitutional Appears: No Acute Distress, Confused, Chronically Ill - Head Exam Head Exam: ATRAUMATIC, NORMOCEPHALIC - Eye Exam Eye Exam: EOMI, PERRL - ENT Exam ENT Exam: Mucous Membranes Moist - Neck Exam Neck Exam: absent: Lymphadenopathy, Thyromegaly - Respiratory Exam Respiratory Exam: Clear to Ausculation Bilateral Additional comments: Abnormal breathing pattern, likely 2/2 costochondral pain 2/2 CPR - Cardiovascular Exam Cardiovascular Exam: RRR, +S1, +S2 - GI/Abdominal Exam GI & Abdominal Exam: Soft Additional comments: Mild diffuse tenderness, worst is suprapubic, mild involuntary gaurding. No rigidity, no rebound. - Extremities Exam Extremities Exam: absent: Calf Tenderness, Pedal Edema - Neurological Exam Neurological Exam: Alert, Awake Additional comments: Oriented x2 this AM, later in the day, no longer responding verbally, but opens eyes to verbal stimuli
--- NOTE | 2016-11-20 16:51 | PN ---
DATE: 11/20/2016 SUBJECTIVE: The patient is seen in the ICU. He is in a medically-induced coma/paralysis. He is receiving sedation. He is on mechanical ventilation. He is also on multiple pressors, he is on Levophed at 20 mcg per hour. He is on IV heparin. He is also on fentanyl, propofol and IV antibiotics. PHYSICAL EXAMINATION: GENERAL: An elderly male, lying in bed in the ICU, on mechanical ventilation, sedated. VITAL SIGNS: Blood pressure 108/45, heart rate 92, respiratory rate 14, temperature 97.7. HEENT: Normocephalic, atraumatic, pupils not reactive to light, 2 mm. NECK: Supple, no JVD. LUNGS: Bilateral rhonchi, bilateral crackles, equal expansion. CARDIAC: S1, S2, regular rate and rhythm, no murmur, no rub. Abdomen: Obese, distended, soft, nontender, bowel sounds present. EXTREMITIES: 2+ pitting edema of the lower extremities. INTAKE AND OUTPUT: 3119/250. LABORATORY DATA: WBC 17.8, hemoglobin 9, hematocrit 28, platelets of 174. Sodium 135, potassium 5.8, chloride 101, CO2 of 15, BUN 153, creatinine 5.4, glucose 242, calcium 5.9, albumin 2.6, corrected calcium is 6.9, AST 173, ALT 33. Chest x-ray, persistent, diffuse interstitial and diffuse coalescing airspace process, no effusions. Thoracic spine MRI, unremarkable. Lumbar spine MRI, multilevel disk degeneration with stenosis of L3-L4 and L4-L5. ASSESSMENT AND PLAN: 1. 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 ATN in the setting of sepsis. The patient is now oligoanuric. Worsening renal function. 2. Hyperkalemia secondary to worsening kidney function. 3. Severe anion gap metabolic acidosis 4. Severe hypocalcemia. 5. Severe hyperphosphatemia. 6. Hypoalbuminemia. 7. Leukocytosis. 8. Severe anemia with bandemia. 9. Grave prognosis. PLAN: 1. Case is discussed with ICU team at bedside at length. At this time, the patient has a very grave prognosis. His renal function is deteriorating. He has multiorgan dysfunction. 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 Currently, the patient is hypotensive, on multiple pressors. He is not a candidate for renal replacement therapy at this time. He is hemodynamically unstable for renal replacement therapy. RECOMMENDATIONS: 1. Conservative management of hyperkalemia, correct acidosis. 2. IV calcium gluconate. 3. Continue IV fluid resuscitation. 4. Continue inotropic support. 5. Continue IV antibiotics. 6. More than 35 minutes was spent in the care of this critically ill patient.. Karen Loja MD
--- NOTE | 2016-11-20 18:27 | CARD ---
APPROVED REPORT EXAM: LIMITED Two-dimensional and M-mode echocardiogram. INDICATION ENDOCARDITIS Mitral Valve E/A ratio0.0 TDI E/Lateral E'0.0E/Medial E'0.0 Tricuspid Valve TR Peak [id number] [id number] Peak Gr.38mmHg [id number] LEFT VENTRICLE The left ventricle is normal size. There is normal left ventricular wall thickness. The systolic function is mildly to moderately impaired.EF-35% There is normal LV segmental wall motion. The left ventricular diastolic function is normal. No left ventricle thrombus noted on this study. There is no ventricular septal defect visualized. There is no left ventricular aneurysm. There is no mass noted in the left ventricle. RIGHT VENTRICLE The right ventricle is mildly dilated. There is normal right ventricular wall thickness. Systolic function is mildly reduced. ATRIA The left atrium size is normal. The right atrium size is normal. The interatrial septum is intact with no evidence for an atrial septal defect. AORTIC VALVE The aortic valve is thickened but opens well. The aortic valve is not well visualized. There is trace aortic regurgitation. There is no aortic valvular stenosis. There is no aortic valvular vegetation. MITRAL VALVE The mitral valve is not well visualized. Mitral regurgitation is trace. There is no mitral valve stenosis. There is no evidence of mitral valve prolapse. TRICUSPID VALVE The tricuspid valve leaflets are thickened , but open well. There is mild tricuspid regurgitation.RVSp-48 mmof hg. There is no tricuspid valve stenosis. There is no tricuspid valve prolapse or vegetation. PULMONIC VALVE The pulmonic valve is not well visualized. GREAT VESSELS The aortic root is normal in size. The ascending aorta is normal in size. The pulmonary artery is normal. The IVC is normal in size and collapses >50% with inspiration. PERICARDIAL EFFUSION There is no pleural effusion. There is no pericardial effusion. <Conclusion> The left ventricle is normal size. There is normal left ventricular wall thickness. The systolic function is mildly to moderately impaired.EF-35% There is trace aortic regurgitation. The aortic valve is not well visualized. The mitral valve is not well visualized. TDSA limited Study No Obvious vegetation noted in this study may consider JOSEPH if blood Culture remains persistet positive.
[2016-11-20 18:41] LABS: PH,URINE 5.5 (4.7-8.0); URINE APPEARANCE SL CLOUDY (CLEAR); URINE BILIRUBIN MODERATE (NEGATIVE); URINE BLOOD LARGE (NEGATIVE); URINE COLOR YELLOW (YELLOW); URINE GLUCOSE (UA) NEGATIVE (NEGATIVE); URINE LEUKOCYTE ESTERASE TRACE Leu/uL (NEGATIVE); URINE NITRATE NEGATIVE (NEGATIVE); URINE PROTEIN 100 mg/dL (<30 mg/dL)
[2016-11-20 18:54] LABS: URINE BACTERIA MANY (NEG)
[2016-11-21] MEDS: Insulin Reg-MEDIUM-Coverage SC SCH (00:24)
[2016-11-21] MEDS: Nafcillin 2 GM in Sodium Chloride 0.9% 100 ML IVPB SCH ×2 (00:43→04:21)
[2016-11-21] MEDS: White Petrolatum Ophth Oint (Puralube) OU SCH ×3 (00:45→06:34)
[2016-11-21] MEDS: Fentanyl 1000mcg/100ml NS 1,000 MCG/100 ML BAG IV PRN (01:23)
[2016-11-21] MEDS: Heparin 25,000units in D5W 25,000 UNITS/250 ML BAG IV SCH (04:29)
[2016-11-21 05:32] VITALS: BP 124/41; PULSE 51; TEMP 97; O2SAT 91
[2016-11-21] MEDS ORDERED: DOPamine 400mg/250ml D5W 400 MG/250 ML BAG IV PRN (07:18)
[2016-11-21 07:35] LABS: BASO # 0.03 K/mm3 (0.0-2.0); BASO % 0.1 % (0.0-3.0); GRAN # 21.96 (1.4-6.5); GRAN % 91.7 % (50.0-68.0); HEMOGLOBIN 9.6 g/dL (14.0-18.0); LYMPH # 0.7 (1.2-3.4); LYMPH % 3.1 % (22.0-35.0); MEAN CELL VOLUME 88.4 fl (80.0-105.0); MEAN CORPUSCULAR HEMOGLOBIN 29.4 pg (25.0-35.0); MEAN CORPUSCULAR HGB CONC 33.2 g/dl (31.0-37.0); MEAN PLATELET VOLUME 11.9 fl (7.0-11.0); MONO # 1.2 (0.1-0.6); MONO % 5.1 % (1.0-6.0); PLATELET COUNT 242 10^3/uL (120.0-450.0); RBC 3.27 10^6/uL (3.5-6.1)
[2016-11-21 07:46] LABS: ARTERIAL BLOOD GAS HCO3 10.6 mmol/L (21-28); ARTERIAL BLOOD GAS HEMOGLOBIN 9.5 g/dL (11.7-17.4); ARTERIAL BLOOD GAS O2 CAPACITY 13.2 mL/dl (16-24); ARTERIAL BLOOD GAS O2 CONTENT 13.1 ML/dl (15-23); ARTERIAL BLOOD GAS O2 SAT 99.2 % (95-98); ARTERIAL BLOOD GAS PCO2 32 mm/Hg (35-45); ARTERIAL BLOOD GAS TCO2 11.6 mmol.L (22-28)
[2016-11-21 07:47] LABS: ARTERIAL BLOOD GAS PH 7.13 (7.35-7.45)
[2016-11-21 07:49] LABS: ALB/GLOB RATIO 0.8 (1.1-1.8); ALBUMIN 2.5 g/dL (3.0-4.8)
[2016-11-21] MEDS: Levalbuterol 1.25 MG/3 ML Inhal Soln UD IH SCH (07:52)
[2016-11-21] MEDS ORDERED: Sodium Bicarbonate (8.4%) 50 Meq Syringe IVP ONE (08:08)
[2016-11-21 08:17] LABS: CALCIUM 5.8 mg/dL (8.4-10.5)
--- NOTE | 2016-11-21 08:51 | CP.PCM.PRO ---
Pronouncement of Note - Clinical Findings Physical Exam: No Response Verbal/Painful Stimuli, Absent Peripheral Pulses{ Carotid & Femoral}, Absent Heart & Breath Sounds, No Pupillary Light Reflex, No Corneal Reflex, Pupils Fixed & Dilated, Absence of Vital Signs - Pronouncement Time Time of Pronouncement of : 08:38 - Notifications Pronouncement Notifications: Family Notified, Atending Notified Line Closer Notified: No - Autopsy Autopsy Requested: No [place] [id number] Additional Comments: EDRS certificate submitted, to be completed by primary physician
--- NOTE | 2016-11-21 09:35 | CP.PCM.PN ---
<TENZIN ESTRADA - Last Filed: 11/21/16 09:03> Subjective - Date & Time of Evaluation Date of Evaluation: 11/21/16 Time of Evaluation: 07:30 - Subjective Subjective: Tenzin Estrada DO PGY1 - ICU Progress Note Patient seen and examined at bedside. Nurses report that overnight, starting at around 1:30 AM, patient repeatedly became bradycardic and went into asystole and spontaneously recovered. For this, they titrated down, and eventually off all sedatives and paralytics. Today, he continued to have episodes of asystole with spontaneous recovery, with persistent bradycardia. Stat labs and an EKG were ordered, and he was started on a dopamine drip and given calcium gluconate and bicarbonate to address presumed hypocalcemia and hyperkalemia. Despite these measures, he again went into asystole, which persisted, and at 8:38 AM he was pronounced . Objective - Vital Signs/Intake and Output Vital Signs (last 24 hours): Temp Pulse Resp BP Pulse Ox 97.0 F L 51 L 14 124/41 L 91 L 11/21/16 05:30 11/21/16 05:30 11/20/16 09:41 11/21/16 05:30 11/21/16 05:30 Intake and Output: 11/21/16 11/21/16 06:59 18:59 Intake Total 1041 Balance 1041 - Medications Medications: Current Medications Allopurinol (Zyloprim) 300 mg PO DAILY [facility] Last Admin: 11/20/16 09:52 Dose: 300 mg Artificial Tears (Puralube Opht Oint) 1 appl OU Q2 [facility] Last Admin: 11/21/16 06:34 Dose: Not Given Aspirin (Aspirin Supp) 300 mg RC DAILY [facility] Last Admin: 11/20/16 09:51 Dose: 300 mg Home Med (Home Med) 1 unit PO DAILY [facility] Last Admin: 11/20/16 10:18 Dose: Not Given Heparin Sodium/Dextrose (Heparin 25,000 Units/250ml In D5w) 25,000 units in 250 mls @ 8.459 mls/hr IV .Q24H [facility]; 12 UNITS/KG/HR PRN Reason: Protocol Last Admin: 11/21/16 04:29 Dose: 16 units/kg/hr, 11.278 mls/hr Fentanyl Citrate (Fentanyl Citrate/Sodium Chloride 1 Mg/100 Ml) 1,000 mcg in 100 mls @ 2 mls/hr IV .Q24H PRN; Protocol; 20 MCG/HR PRN Reason: TITRATE PER MD ORDER Last Titration: 11/21/16 05:05 Dose: 0 mcg/hr, 0 mls/hr Meropenem 500 mg/ Sodium (Chloride) 100 mls @ 100 mls/hr IVPB Q12 [facility] PRN Reason: Protocol Stop: 11/25/16 10:01 Last Admin: 11/20/16 21:21 Dose: 100 mls/hr Propofol (Diprivan) 1,000 mg in 100 mls @ 2.183 mls/hr IV .Q24H PRN; Protocol; 5 MCG/KG/MIN PRN Reason: TITRATE PER MD ORDER Last Titration: 11/21/16 03:00 Dose: 10 mcg/kg/min, 4.365 mls/hr Cisatracurium Besylate 100 mg/ (Sodium Chloride) 260 mls @ 8.51 mls/hr IV .Q24H PRN; 0.75 MCG/KG/MIN PRN Reason: TITRATE PER MD ORDER Last Admin: 11/20/16 10:30 Dose: 17.02 mls/hr Norepinephrine Bitartrate 8 mg (/ Sodium Chloride) 258 mls @ 38.7 mls/hr IV .Q6H40M PRN; Protocol; 20 MCG/MIN PRN Reason: TITRATE PER MD ORDER Last Admin: 11/21/16 04:56 Dose: 30 mcg/min, 58.05 mls/hr Nafcillin Sodium 2 gm/ Sodium (Chloride) 100 mls @ 100 mls/hr IVPB Q4 [facility] PRN Reason: Protocol Last Admin: 11/21/16 04:21 Dose: 100 mls/hr Linezolid (Zyvox 600mg/300ml D5w) 600 mg in 300 mls @ 200 mls/hr IVPB Q12 [facility] PRN Reason: Protocol Stop: 11/27/16 10:01 Last Admin: 11/20/16 21:23 Dose: 200 mls/hr Dopamine HCl/Dextrose (Dopamine 400mg/250ml D5w) 400 mg in 250 mls @ 6.124 mls/ hr IV .Q24H PRN; Protocol; 2 MCG/KG/MIN PRN Reason: TITRATE PER MD ORDER Last Admin: 11/21/16 07:42 Dose: 2 mcg/kg/min, 6.124 mls/hr Insulin Human Regular (Humulin R Med) 0 units SC ACHS [facility] PRN Reason: Protocol Last Admin: 11/21/16 00:24 Dose: Not Given Levalbuterol HCl (Xopenex) 1.25 mg IH TIDRESP [facility] Last Admin: 11/21/16 07:52 Dose: 1.25 mg Pantoprazole Sodium (Protonix Inj) 40 mg IVP DAILY [facility] Last Admin: 11/20/16 09:50 Dose: 40 mg - Labs Labs: 11/21/16 07:29 11/21/16 07:29 PT 13.4 Seconds (9.9-11.8) H 11/16/16 13:00 INR 1.24 (0.93-1.08) H 11/16/16 13:00 APTT 61.3 Seconds (23.7-30.8) H 11/21/16 06:15 - Constitutional Appears: Other () - Head Exam Head Exam: ATRAUMATIC, NORMOCEPHALIC - Eye Exam Pupil Exam: Fixed, Mydriatic - ENT Exam ENT Exam: Mucous Membranes Dry - Respiratory Exam Additional comments: No breath sounds auscultated - Cardiovascular Exam Additional comments: No heart sounds, no pulse - Neurological Exam Additional comments: No pupillary, cornea, gag, or cough reflexes. No response to verbal, tactile, or noxious stimuli Assessment and Plan - Assessment and Plan (Free Text) Assessment: 76yo male with history of HTN, DM2, HLD, COPD, asthma admitted to the ICU with ventilator dependent acute mixed hypoxemic hypercapnic respiratory failure, bilateral pulmonary infiltrates, NSTEMI, sepsis with positive BCx likely 2/2 endocarditis. Patient had several episodes of asystole with spontaneous recovery overnight. This morning, persistent bradycardia with continued episodes of asystole with spontaneous recovery. Started on Dopamine drip, given calcium gluconate and bicarbonate. Despite these measures, continued to deteriorate. Finally went into went into asystole without recovery. No code was called as patient is DNR. Patient was pronounced at 8:38 AM Will contact friend. certificate started. Attending PCP notified. <Hector MADDOX,Alla H - Last Filed: 11/21/16 12:36> Objective - Vital Signs/Intake and Output Vital Signs (last 24 hours): Temp Pulse Resp BP Pulse Ox 97.0 F L 51 L 14 124/41 L 91 L 11/21/16 05:30 11/21/16 05:30 11/20/16 09:41 11/21/16 05:30 11/21/16 05:30 Intake and Output: 11/21/16 11/21/16 06:59 18:59 Intake Total 1041 Balance 1041 - Labs Labs: 11/21/16 07:29 11/21/16 07:29 PT 13.4 Seconds (9.9-11.8) H 11/16/16 13:00 INR 1.24 (0.93-1.08) H 11/16/16 13:00 APTT 61.3 Seconds (23.7-30.8) H 11/21/16 06:15 Attending/Attestation - Attestation I have personally seen and examined this patient.: Yes I have fully participated in the care of the patient.: Yes I have reviewed all pertinent clinical information, including history, physical exam and plan: Yes Notes (Text): 11/21/16 12:33 Brief examination prior to expiration showed multiple telemetry readings of pulseless asystole without A-line tracing. Off paralytics and sedation. Actively bradycardic/ Junctional rhythm . On vasopressors and off sedation. Pt is noted to be DNR per PCP and Documentation. Currently poor prognosis and likely to be pronounced shortly.
--- NOTE | 2016-11-23 00:43 | DS ---
HISTORY OF PRESENT ILLNESS: This is a 76-year-old man I had known for many years in the office. A little bit of a lone soul, he lives at the [facility] with history of atherosclerotic cerebrovascular disease, hypertension, and status post carotid endarterectomy. He presents to the emergency room with few days of urinary symptoms, urinary incontinence, soil clothing, and . He was treated with IV fluids, started on IV antibiotics. Infectious Disease device sales consultant was called. The following morning, he went into atrial fibrillation with a rapid ventricular response. [employer] Br[employer] Laminating Operator, Dr. Antonio Stewart was on the floor and was asked to consult. Later, the patient made troponins and with problems rise and was transferred to intensive care unit. In the ICU, he was aggressively followed again with antibiotics and fluid management. His BUN was rising, initially was felt to be in obstructive uropathy with over 600 mL of residual urine; however, with Wolfe catheter placement, the BUN and creatinine continued to rise prompting a call to renal device sales consultant. Breathing was labored. I was able to speak with the patient during my visits, but he continued to weaken and did poorly. His white count continued to rise. He began short of breath and diaphoretic overnight, prompting his intubation. After that, he continued to fail. I was able to recall from my prior statements and conversations with the patient that his arrangements had been prearranged at [facility] and that his only family or friends or relative, was a friend who lives in [place] named Clif Heck. I spoke with Mr. Heck informing him of the patient's poor state on Friday with worsening condition and arrhythmia changes, cardiac care consultation was done with nurse practitioner Christiana Wilson. I spoke with her after she spoke with Mr. Heck. Do not resuscitate order was written on the chart and in early hours of this morning, 11/21/2016, the patient in intensive care. CAUSE OF : Sepsis due to urinary tract infection. FINAL DISCHARGE DIAGNOSES: 1. Sepsis. 2. Urinary tract infection. 3. Possible pneumonia. 4. Troponin positive myocardial infarction. 5. Volume overload congestive heart failure. 6. Atherosclerotic cerebrovascular disease. 7. Chronic obstructive pulmonary disease. Juwan Vaughn MD
== END 2016-11-21 08:38 | DRG 871 ==
LOC: ED 09:24 → ERH 12:56 → 2RSO 16:23 → CCU 11-16 14:05
PROVIDERS: ADMIT Internal Medicine; ATTEND Internal Medicine
PROC: 5A09357 Assistance with Respiratory Ventilation, Less than 24 Consecutive Hours, Continuous Positive Airway Pressure (ICD-10-PCS; 2016-11-16)
PROC: 5A1945Z Respiratory Ventilation, 24-96 Consecutive Hours (ICD-10-PCS; principal; 2016-11-17)
PROC: 0BH18EZ Insertion of Endotracheal Airway into Trachea, Via Natural or Artificial Opening Endoscopic (ICD-10-PCS; 2016-11-17)
PROC: 0T9B70Z Drainage of Bladder with Drainage Device, Via Natural or Artificial Opening (ICD-10-PCS; 2016-11-17)
PROC: 05HN33Z Insertion of Infusion Device into Left Internal Jugular Vein, Percutaneous Approach (ICD-10-PCS; 2016-11-18)
PROC: B544ZZA Ultrasonography of Left Jugular Veins, Guidance (ICD-10-PCS; 2016-11-18)
PROC: 3E033XZ Introduction of Vasopressor into Peripheral Vein, Percutaneous Approach (ICD-10-PCS; 2016-11-19)
PROC: 3E03328 Introduction of Oxazolidinones into Peripheral Vein, Percutaneous Approach (ICD-10-PCS; 2016-11-20)
DX: A41.01 Sepsis due to Methicillin susceptible Staphylococcus aureus (principal); J18.9 Pneumonia, unspecified organism; I21.4 Non-ST elevation (NSTEMI) myocardial infarction; N17.0 Acute kidney failure with tubular necrosis; I50.21 Acute systolic (congestive) heart failure; J96.01 Acute respiratory failure with hypoxia; J96.02 Acute respiratory failure with hypercapnia; R65.21 Severe sepsis with septic shock; R57.0 Cardiogenic shock; I13.0 Hypertensive heart and chronic kidney disease with heart failure and stage 1 through stage 4 chronic kidney disease, or unspecified chronic kidney disease; I42.0 Dilated cardiomyopathy; E83.39 Other disorders of phosphorus metabolism; Z99.11 Dependence on respirator [ventilator] status; E87.2 Acidosis; N39.0 Urinary tract infection, site not specified; J44.0 Chronic obstructive pulmonary disease with (acute) lower respiratory infection; E87.1 Hypo-osmolality and hyponatremia; E11.22 Type 2 diabetes mellitus with diabetic chronic kidney disease; I48.91 Unspecified atrial fibrillation; I67.2 Cerebral atherosclerosis; N18.9 Chronic kidney disease, unspecified; E78.1 Pure hyperglyceridemia; I25.10 Atherosclerotic heart disease of native coronary artery without angina pectoris; M10.9 Gout, unspecified; M19.90 Unspecified osteoarthritis, unspecified site; D64.9 Anemia, unspecified; R33.9 Retention of urine, unspecified; E78.5 Hyperlipidemia, unspecified; I44.7 Left bundle-branch block, unspecified; I25.5 Ischemic cardiomyopathy; E83.51 Hypocalcemia; E87.5 Hyperkalemia; M51.36 Other intervertebral disc degeneration, lumbar region; M48.06 Spinal stenosis, lumbar region; Z66 Do not resuscitate; Z95.5 Presence of coronary angioplasty implant and graft; Z88.2 Allergy status to sulfonamides; Z87.891 Personal history of nicotine dependence; Z79.84 Long term (current) use of oral hypoglycemic drugs; Z86.11 Personal history of tuberculosis